=== PATIENT | female | born 1985 | race Caucasian/White ===

== ENCOUNTER 2023-10-09 19:20 | Outpatient (CLI) | payer OTHER, SELFPAY ==
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
--- OUTSIDE RECORDS SUMMARY | 2023-10-20 04:24 | XMS_ITS | Referral Summary ---
Author Name Unknown Organization [facility] Address [facility] [place] [address] Care Team Providers Care Ground Crewman Name Role Phone No Ref-Primary, Physician Primary Care Provider Allergies No known active allergies Medications Medication [...] 09/05/2011 Overview: Patient is followed by YULIA ANDERSON for ongoing prescription of stimulants. Due to illegal substance in urine on 11/02/2015 will not receive further stimulants from [facility]. Tobacco use disorder 09/05/2011 CARDIOVASCULAR SCREENING; LDL [...] Answer Date Recorded PHQ-2 Score 0 06/28/2018 [place] Depression Scale Answer Date Recorded Last EPDS [...] THIN LAYER SCREEN Routine 07/09/2015 12:00 AM ORNAMENTER HAND Routine general medical examination at a health care facility from Last 3 Months or Most Recently Relevant to Health Maintenance Results * (ABNORMAL) Comprehensive metabolic panel (03/24/2023 6:27 AM CDT) [facility] Sodium 137 135 - 145 mmol/L 03/24/2023 [...] Rai MD LAB - BLOOD ORDER CONSTANTINE [facility] [address] [facility] (1st floor, no room number) [place] [address], [facility] [phone] * PAP IMAGED THIN LAYER SCREEN (07/09/2015 12:00 AM ORNAMENTER HAND) PAP NIL COPATH Copath Report Patient Name: POWER PEREZ MR#: [id number] Specimen #: [id number] Collected: 07/09/2015 Received: 07/10/2015 Reported: 07/14/2015 14:32 Ordering Phy(s): YULIA ANDERSON SPECIMEN/STAIN PROCESS: Pap imaged thin layer prep screening (Surepath, FocalPoint with guided screening) ? Pap-Cyto x 1 SOURCE: Cervical, endocervical Pap imaged thin layer prep screening (Surepath, FocalPoint with guided screening) SPECIMEN ADEQUACY: Satisfactory for evaluation. -Transformation zone component present. CYTOLOGIC INTERPRETATION: Negative for Intraepithelial Lesion or Malignancy Electronically signed out by: Diane Giraldo Processed and screened at [facility] CLINICAL HISTORY: LMP: 07/02/15 Papanicolaou Test Limitations: ??Cervical cytology is a screening test with limited sensitivity; regular screening is critical for cancer prevention; Pap tests are primarily effective for the diagnosis/preventi on of squamous cell carcinoma, not adenocarcinomas or other cancers. TESTING LAB LOCATION: [facility] [address] [place], [place] ??[id number] COLLECTION SITE: Client: ??[facility] Location: [facility] (R) RADHA Cytologic material (specimen) 07/09/2015 07/10/2015 11:08 AM ORNAMENTER HAND Yulia [place] [facility] [employer]YMER ENGINE[employer] LAB - OPTIM E CLINICAL SPECIMEN COPATH from Last 3 Months or Most Recently Relevant to Health Maintenance Advance Directives For more information, please contact: [phone] * Full Code (Latest Code Status on [...] eder cabrera/ legal decision maker Care Teams Ground Crewman Relationship Specialty Start Date End Date No Ref-Primary, Physician PCP - General 11/16/21
--- OUTSIDE RECORDS SUMMARY | 2023-10-20 04:24 | XMS_ITS | Clinical Summary ---
Author Name Unknown Organization [facility] Address [address] [place] [address] Care Team Providers Care Report Programmer Name Role Phone Unavailable Primary Care Provider Unavailabl e Source Comments You are receiving this document as you are listed as the primary care provider,follow-up provider, or the patient has been referred to you for consultation.This is in compliance with the Medicare and[facility] EHR Incentive Program,which states Providers who transition their patient to another setting of careor provider of care or refers their patient to another provider of care shouldprovide summary care record for each transition of care or referral. [facility] Allergies No known active allergies Medications Medication [...] contact Roopa Lucero, Healthy Beginnings Specialist, at [phone]. High risk , antepartum 08/30/2022 Antepartum multigravida of advanced maternal age 0308/30/2022 ADHD (attention deficit hyperactivity disorder) 09/05/2011 Overview: Patient is followed by PAMELA ANDERSON for ongoing prescription of stimulants. Due to illegal substance in urine on 11/02/2015 will not receive further stimulants from [place]. Tobacco use disorder 09/05/2011 Resolved Problems Problem Noted Date Diagnosed Date Resolved Date Finger amputation, no complication, traumatic 08/31/19 23 08/30/2022 Polysubstance dependence 09/22/2015 Schizoaffective disorder, bipolar type 09/22/2015 08/30/2022 Suicidal ideation 09/22/2015 08/30/2022 Encounters Date Type Department Care Team Description 10/05/2023 Notes/Orders [facility] [facility] [address] [place] [address] Joyce Hampton, SENIOR PATROL AGENT, REFUSE COLLECTOR SUPERVISOR Encounter for screening examination for mental health [...] Date Smoking Tobacco: Every Day Cigarettes 1 25.3 Started: 07/20/1998 Tobacco Cessation:Ready to Q uit: [...] (Late st Contact Info) Description 06/02/2024 Notes/Orders [facility] [address] [place] [address], [address] [address] Britany Serrato, RN Health Maintenance [...] PM CDT) Case Report Pap ? Case: [id number] ? Authorizing Provider: ??Brianna Ma, RYAN, ?Collected: ? 08/30/2022 1310 ? CNM ? Ordering Location: ? [facility] ? Received: ?08/30/2022 1325 ? Services-[facility] ? First Screen: ?Anay Khalil ? Specimen: ?Pap Test, Routine, Cervix/Endocervix ? 09/20/2022 2:02 PM CDT [facility] Pap Specimen Adequacy Satisfactory for evaluation, endocervical/reeder sformation zone component present. 09/20/2022 2:02 PM CDT [facility] Pap Interpretation (NILM) Negative for intraepithelial lesion or malignancy. 09/20/2022 2:02 PM CDT [facility] Pap Disclaimer The Pap test is a screening test designed to aid in the detection of cervical cancer and its precursor lesions. It is not a diagnostic procedure and should not be used as the sole means of detecting cervical cancer. Both false-positive and false-negative results may occur. 09/20/2022 2:02 PM CDT [facility] Gross Description The specimen is received in SurePath fixative and properly labeled. 1 Pap-stained SurePath slide is prepared. 09/20/2022 2:02 PM CDT [facility] Embedded Images 2:02 PM CDT [facility] Other Specimen Type ENTIRE ENDOCERVIX / Unknown 08/30/2022 1:10 PM CDT 08/30/2022 1:25 PM CDT Comment:LMP: No LMP recorded (lmp unknown). Patient is . Brianna Ma APRN, CNM LAB PATHOLOGY Performing Organization Address [facility] de Phone Number [facility] [address] * HIV 1/2 Ag/Ab 4th Generation (08/30/2022 12:17 PM CDT) Pathologist [facility] HIV 1/2 Antigen/Antib jc (4th generation) Negative (Non Reactive) Negative (Non Reactive) 08/30/2022 8:51 PM CDT [facility] Comment:HIV-1 p24 Antigen an d HIV-1/HIV-2 Antibody not detected Blood Venipuncture / Unknown 08/30/2022 12:17 PM CDT 08/30/2022 12:17 PM CDT Brianna Ma APRN, CNM LAB_1 Performing Organization Address [facility] de Phone Number [facility] [address] * Hepatitis C Antibody, with Reflex (08/30/2022 12:17 PM CDT) Pathologist [facility] Hepatitis C Antibody Negative (Non Reactive) Negative (Non Reactive) 08/30/2022 8:51 PM CDT [facility] Comment:Antibodies to HCV no t detected. Does not exclude the possiblity of exposure to HCV. Blood Venipuncture / Unknown 08/30/2022 12:17 PM CDT 08/30/2022 12:17 PM CDT Brianna Ma APRN, CNM LAB_1 Performing Organization Address [facility] de Phone Number [facility] [address] from Last 3 Months or Most Recently Relevant to Health Maintenance [address] [place] [address]
--- OUTSIDE RECORDS SUMMARY | 2023-10-20 04:24 | XMS_ITS ---
Author Name Unknown Organization [facility] Address [address] [place] [address] Care Team Providers Care Crystalizer Tender Name Role Phone Unavailable Unavailable Unavailable Surgery Details Not on file Complications Check Surgery Details section. Procedure Estimated Blood Loss Check Surgery Details section. Procedure Findings Check Surgery Details section. Procedure Specimens Taken Check Surgery Details section.
--- OUTSIDE RECORDS SUMMARY | 2023-10-20 04:24 | XMS_ITS | Continuity of Care Document ---
Author Name [facility] Organization [facility] Care Team Providers Care After School Program Assistant Name Role Phone [facility] Unavailable Unavailable Problems Combined list of problems from Department of Defense and Veterans Affairs facilities. It does not include entries that were removed or entered in error. Problem Status Onset Date Problem Type Date of Resolution Comments Source Gynecologic Services Intrauterine Device (IUD) Insertion Active Condition [facility] Implantable Contraceptive Capsules Insertion Inactive Condition [facility] routine history and physical Active Condition [facility] visit for: screening exam depression Inactive Condition [facility] Inquiry And Counseling: Family Planning Active Condition [facility] premature rupture of membranes - antepartum condition or com Inactive Condition [facility] Need For Vaccination Against Influenza Inactive Condition [facility] Need For Vaccination Against Combinations Of Diseases Inactive Condition [facility] Blood Pressure Isolated Elevated Active Condition [facility] Patient Counseling: Inquiry & Counseling Active Condition [facility] Supervision Of Normal Inactive Condition [facility] depression Active Condition [facility] nicotine dependence continuous Active Condition [facility] matern tobacco use complic preg//puerper antepart cond Active Condition [facility] Education Active Condition [facility] Ed Initial Visit What To Expect In Normal Active Condition [facility] Ed Initial Visit Development In 1st Trimester Active Condition [facility] Medications Combined list of outpatient medications from Department of Defense and Veterans Affairs facilities.Medications provided include 1) outpatient medications from the last 15 months, and 2) patient-reported medications. Medication Details Route Status Patient Instructions Prescription Expires Prescription Number Last Dispense Date Ordering Provider Order Date Order Qty Source LITHIUM CARBONATE (LITHIUM CARBONATE), 300 MG, TABLET ER, ORAL, [employer] PHARMA, 100 ea. BOTTLE Active [id number] 2023 60 Pharmac y Data Transac tion Service Facilit y OLANZAPINE (OLANZAPINE ), 10 MG, TABLET, ORAL, [employer] PHARMA, 30 ea. BOTTLE Cancele d [id number] : 2023 0 Pharmac y Data Transac tion Service Facilit y Immunizations Combined list of available immunizations from the Department of Defense and Veterans Affairs facilities. Immunization Series Date Given Administered By Site Reaction Lot Number CVX Code Drug Docket Specialist Status Comments Source influenza virus vaccine, split virus (incl. purified surface antigen)-reti red CODE 1 2012 FERNANDO LANTIGUA [id number] Sanofi Pasteur ([facility]) complet ed influenza virus vaccine, split virus (incl. purified surface antigen)- retired CODE DoD tetanus toxoid, reduced diphtheria toxoid, and acellular pertu is vaccine, adsorbed 1 2012 FERNANDO LANTIGUA [id number] [address] [place], [place] [address] ([facility]) complet ed tetanus toxoid, reduced diphtheri [...] Date Status Disposition Source [facility] [place] OUTPATIENT [id number] tob SATYA AGUIRRE 04/03 Released w/o Limitations [facility] [place] [facility] [place] OUTPATIENT [id number] tob rosita HARPER MACDONALD 04/11 Released w/o Limitations [facility] [place] [facility] [place] OUTPATIENT [id number] ISABEL ROSITA [id number] CROW ANTONIO 05/22 Released w/o Limitations [facility] [place] [facility] TELE CONSULT [id number] Notes Entered by: KARLEE YUEN 01 Jun 2012 0926 ------- ------- ------- ------- -- Outpt consult BEATA ABDULLAHI 06/01 Referred for Appointment [facility]( [facility]) [facility] TELE CONSULT [id number] Notes Entered by: KARLEE YUEN 27 Jun 2012 1046 ------- ------- ------- ------- -- Outpt consult BEATA ABDULLAHI 06/27 Referred for Appointment [facility]( [facility]) [facility] [place] OUTPATIENT [id number] Notes Entered by: DARREL WALTON 29 Jun 2012 0157 ------- ------- ------- ------- -- cold/fl u symptom s CARLA VAZQUEZ W 06/29 Released w/o Limitations [facility]( [facility] [place] [place] OUTPATIENT [id number] isabel rosita [id number] CROW ANTONIO 07/18 Released w/o Limitations [facility] [place] [facility] [place] OUTPATIENT [id number] ISABEL ROSITA [id number] CROW ANTONIO 08/14 Released w/o Limitations [facility] [place] [facility] [place] OUTPATIENT [id number] ISABEL rosita:09/17 CROW ANTONIO 09/04 Released w/o Limitations [facility] [place] [facility] [place] OUTPATIENT [id number] ISABEL rosita:09/17 YOLANDA AZUL 09/12 Released w/o Limitations [facility] [place] [facility] [place] OUTPATIENT [id number] Notes Entered by: Jeannie SPICER 12 Sep 2012 1217 ------- ------- ------- ------- -- REFERRE D FROM CLINIC FOR HIGH BLOOD PRESSUR E OMAR ARAIZA 09/12 Released w/o Limitations [facility]( [facility] [place] DIRECT TO [facility] FROM OTHER THAN ER OR [facility] [id number] MAGALI QUILES 09/18 DISCHARGED HOME [facility] [place] OUTPATIENT [id number] Notes Entered by: KEVYN ODOM 19 Sep 2012 0049 ------- ------- ------- ------- -- SROM check MAGALI QUILES 09/19 Admitted [facility]( [facility] [place] [facility] ) INPATIENT [id number] FERNANDO LANTIGUA 09/20 Inpatient- Still a Patient [facility]( Immuniz ation Clinic ) [facility] [place] OUTPATIENT [id number] 11 weeks post OMAR HANSEN 12/06 Released w/o Limitations [facility] [place] [facility] Procedures Combined list of: 1) Procedures from Department of Veterans Affairs facilities going back up to thelast 18 months, not all VA non-surgical procedures are included; 2) All procedures from the Department of Defense facilities. Procedure Procedure Type Code Date Perfomer Comments [facility] e CARE VISIT () 3 [facility] REPAIR OF OTHER CURRENT OBSTETRIC LACERATION 3 [facility] REPAIR OF CURRENT OBSTETRIC LACERATION OF CERVIX 3 [facility] MEDICAL INDUCTION OF LABOR 3 [facility] OTHER MONITORING 3 [facility] INFLUENZA VIRUS VACCINE, TRIVALENT (IIV3), SPLIT VIRUS, 0.5 ML DOSAGE, FOR INTRAMUSCULAR USE 3 [facility] NON-STRESS TEST 3 [facility] SUBSEQ CARE VISIT () [EXCLS:PATIENTS WHO ARE SEEN FOR A CONDITION UNREL TO / CARE (EG,AN UP RESPIR INFECT;PATIENTS SEEN FOR CONSULTATION ONLY,NOT FOR CONT CARE)] 3 [facility] SUBSEQ CARE VISIT () [EXCLS:PATIENTS WHO ARE SEEN FOR A CONDITION UNREL TO / CARE (EG,AN UP RESPIR INFECT;PATIENTS SEEN FOR CONSULTATION ONLY,NOT FOR CONT CARE)] 3 [facility] SUBSEQ CARE VISIT () [EXCLS:PATIENTS WHO ARE SEEN FOR A CONDITION UNREL TO / CARE (EG,AN UP RESPIR INFECT;PATIENTS SEEN FOR CONSULTATION ONLY,NOT FOR CONT CARE)] 3 [facility] SUBSEQ CARE VISIT () [EXCLS:PATIENTS WHO ARE SEEN FOR A CONDITION UNREL TO / CARE (EG,AN UP RESPIR INFECT;PATIENTS SEEN FOR CONSULTATION ONLY,NOT FOR CONT CARE)] 3 [facility] NON-STRESS TEST 3 [facility] SUBSEQ CARE VISIT () [EXCLS:PATIENTS WHO ARE SEEN FOR A CONDITION UNREL TO / CARE (EG,AN UP RESPIR INFECT;PATIENTS SEEN FOR CONSULTATION ONLY,NOT FOR CONT CARE)] 2 [facility] INITIAL CARE VISIT (REPORT AT 1ST ENCOUN W HEALTH CAMP ASSISTANT PROVIDING OBSTETRIC CARE. REPORT ALSO DATE OF VISIT &,IN A SEPARATE FIELD,THE DATE OF THE LAST MENSTRUAL PERIOD) 2 [facility] EDUCATION &TRAINING, PATIENT SELF-MGT QUALIFIED, NONPHYSICIAN HEALTH CAMP ASSISTANT USING STANDARDIZED CURRICULUM, [id number] W THE PATIENT (COULD INCL CAREGIVER/FAMILY) EA 30 MIN; 5-8 PATIENTS 2 [facility] Levonorgestrel-rele asing intrauterine contraceptive system, 52 mg 3 OMAR HANSEN [facility] Intrauterine Device (IUD) Insertion [facility] Intrauterine Device (IUD) Insertion 74545 3 OMAR HANSEN Etonogestrel (contraceptive) implant system, including implant and supplies 3 OMAR HANSEN Implantable Contraceptive Capsules Insertion 3 OMAR HANSEN Obstetrical Services Care Visit Obstetrical Services Care Visit 0503F 3 OMAR HANSEN [facility] Influenza Split Virus Vaccine 0.5mL Dosage Intramuscular 3 FERNANDO LANTIGUA Influenza Split Virus; Series #: 1; .5 mL; IM; Left Arm; [facility]: Sanofi Pasteur; Lot: [id number]; VIS given (Dali: 01/26/10). [facility] Tdap Vaccine Tdap Vaccine 05543 3 FERNANDO LANTIGUA Tdap; Series #: 1; .5 mL; IM; Left Arm; [facility]: [employer]; Lot: [id number]; VIS given (Dali: 07/12/11). [facility] Immunization Administration By Injection, One Vaccine Immunization Administration By Injection, One Vaccine 51005 3 FERNANDO LANTIGUA [facility] Immunization Administration By Injection, Each Additional Vaccine Immunization Administration By Injection, Each Additional Vaccine 19316 3 FERNANDO LANTIGUA [facility] Non-Stre Test (___ 0,2) Non-Stress Test (___ 0,2) 92914 3 OMAR HANSEN [facility] OB Services Antepartum Care Only Subsequent Single Visit OB Services Antepartum Care Only Subsequent Single Visit 0502F 3 YOLANDA AZUL [facility] OB Services Antepartum Care Only Subsequent Single Visit OB Services Antepartum Care Only Subsequent Single Visit 0502F 3 CROW ANTONIO [facility] OB Services Antepartum Care Only Subsequent Single Visit OB Services Antepartum Care Only Subsequent Single Visit 0502F 3 CROW ANTONIO [facility] OB Services Antepartum Care Only Subsequent Single Visit OB Services Antepartum Care Only Subsequent Single Visit 0502F 3 CROW ANTONIO Non-Stre Test (___ 0,2) Non-Stress Test (___ 0,2) 03537 3 YE FRIAS [facility] OB Services Antepartum Care Only Subsequent Single Visit OB Services Antepartum Care Only Subsequent Single Visit 0502F 2 CROW ANTONIO [facility] OB Services Antepartum Care Only First Visit, With Report OB Services Antepartum Care Only First Visit, With Report 0500F 2 HARPER FREEMAN DoD Patient Counseling Medical Management [facility] Patients Patient Counseling Medical Management [facility] Patients [address] 2 SATYA AGUIRRE DoD Social History Combined list of available smoking, tobacco, and other social history from Department of Defense and Veterans Affairs facilities. Social History Type Response Date Comment Sourc e This section is an empty social history section. DoD
--- OUTSIDE RECORDS SUMMARY | 2023-10-20 04:24 | XMS_ITS | Encounter Summary ---
Author Name Unknown Organization [facility] Address [address] [place] [address] Care Team Providers Care Vending Attendant Name Role Phone None Reported, Pcp Primary Care Provider Unavail able Encounter Details Date Type Department Care Team (Latest Contact Info) Description 10/14/2023 Intake [facility] Social History Tobacco Use Types Packs/Day Years Used Date Smoking Tobacco: Every Day Cigarettes 07 13 Started: 1998 Smokeless Tobacco: Current Comments:Pt reports using ni cotine in several forms. Is surrently using nicotine and is not interested in quitting. Began nicotine use at age 13 Alcohol Use Standard Drinks/Week Comments Yes 12 (1 standard drink = 0.6 oz pure alcohol) occasionally drinks tequilla, 4 beers per day [employer] Answer Date Recorded In the past 12 months has e [employer], gas, oil, or water [employer] threatened to shut off services in your [...] your living situation today? I have a [facility] place to live 10/15/2023 Sex and Gender Information Value Date Recorded Sex Assigned at Not on file Gender Identity Not on file Sexual Orientation Not on file documented as of this encounter Plan of Treatment Upcoming Encounters Date Type Department Care Team (Late st Contact Info) Description 10/23/2023 11:30 AM CDT Office Visit Department of Family Medicine in [place], [place] [address] [place] [address] Lex Olmos M.D. [address] [place] [address] documented as of this encounter Visit Diagnoses Not on filedocumented in this encounter Additional Health Concerns Infection Onset Date Last Indicated Resolved Time COVID19 Pending 10/14/2023 10/14/2023 10/14/2023 6 :52 PM CDT Assessment Noted Time PHQ-9 Depression Total Score: 10 024 10:00 PM CDT documented as of this encounter Care Teams Vending Attendant Relationship Specialty Start Date End Date None Reported, Pcp PCP - General Family Medicine 10/14/23 documented as of this encounter
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
--- OUTSIDE RECORDS SUMMARY | 2023-10-20 04:24 | XMS_ITS | Clinical Summary ---
Author Name Unknown Organization [facility] Address [facility] [place] [address] Care Team Providers Care Histological Illustrator Name Role Phone No Ref-Primary, Physician Primary [...] 11/02/2015 will not receive further stimulants from [facility]. Tobacco use disorder 09/05/2011 CARDIOVASCULAR SCREENING; LDL [...] Answer Date Recorded PHQ-2 Score 0 06/28/2018 [place] Depression Scale Answer Date Recorded Last EPDS [...] 08/30/2025 08/30/2022, 08/17, 07/09/2015 GLUCOSE 03/24/2026 03/24/2023, 10/0 10/2022, 03/22/2023, Additional history exists DTAP/TDAP/TD IMMUNIZATION (8 - Td or Tdap) 01/02/2033 01/02/2023, 09/20/2012, 06/19/2012, Additional history exists HEPATITIS B IMMUNIZATION Completed 000, 02/26/1999, 01/19/1999 HPV IMMUNIZATION Completed 12/11/2008, , [...] THIN LAYER SCREEN Routine 07/09/2015 12:00 AM MICRO PALEONTOLOGIST Routine general medical examination at a [facility] care facility from Last 3 Months or Most Recently Relevant to Health Maintenance Results * (ABNORMAL) Comprehensive metabolic panel (03/24/2023 6:27 AM CDT) Pathologist [facility] Sodium 137 135 - 145 mmol/L 03/24/2023 [...] Rai MD LAB - BLOOD ORDER CONSTANTINE RH LABORATORY [facility] [address] [facility] Lab (1st floor, no room number) [place] [address] [phone] * PAP IMAGED THIN LAYER SCREEN (07/09/2015 12:00 AM MICRO PALEONTOLOGIST) PAP ALICIA COPATH Copath Report Patient Name: POWER PEREZ MR#: [id number] Specimen #: [id number] Collected: 07/09/2015 Received: 07/10/2015 Reported: 07/14/2015 14:32 [...] by: Diane Giraldo Processed and screened at [facility], [facility] CLINICAL HISTORY: LMP: 07/02/15 Papanicolaou Test Limitations: ??Cervical cytology is a screening test with limited sensitivity; regular screening is critical for cancer prevention; Pap tests are primarily effective for the diagnosis/preventi on of squamous cell carcinoma, not adenocarcinomas or other cancers. TESTING LAB LOCATION: [address] ??[address] COLLECTION SITE: Client: ??[facility] Location: [facility] (R) COPATH Cytologic material (specimen) 07/09/2015 07/10/2015 11:08 AM MICRO PALEONTOLOGIST Yulia Bernabe PROVIDER SERVICE REPRESENTATIVE POL[employer] [facility] - OPTIM E CLINICAL SPECIMEN COPATH from Last 3 Months or Most Recently Relevant to Health Maintenance Advance Directives For more information, please contact: [phone] * Full Code (Latest Code Status on [...] eder cabrera/ legal decision maker Care Teams Histological Illustrator Relationship Specialty Start Date End Date No Ref-Primary, Physician PCP - General 11/16/21
--- OUTSIDE RECORDS SUMMARY | 2023-10-20 04:24 | XMS_ITS | Encounter Summary ---
Author Name Unknown Organization [facility] Address [address] [place] [address] Care Team Providers Care Cell Room Operator Name Role Phone None Reported, Pcp Primary Care Provider Unavail able Reason for Visit * Reason Comments Mental Health Problem Patient presents w [facility] for evaluation of mental crisis. Patient called EMS after argument with her mother over her vehicle to leave her home and get beer. Encounter Details Date Type Department Care Team (Late st Contact Info) Description 10/14/2023 4:40 PM CDT - 10/14/2023 9:11 PM CDT Emergency [facility] [address] [place] [phone] Skye Pearce D.O. [address] [place] [address] [phone] Hernan Piper M.D. 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 I have a [facility] place to live 10/15/2023 Sex and Gender Information Value Date Recorded Sex Assigned at Not on file Gender Identity Not on file Sexual Orientation Not on file documented as of this encounter Last Filed Vital Signs Vital Sign Reading Time Taken Comments Blood Pressure 133/94 10/14/2023 7:18 PM CDT Pulse 89 10/14/2023 7:18 PM CDT Temperature 36.8 ??C (98.2 ??F) 10/14/2023 7:18 PM CD T Respiratory Rate 18 10/14/2023 7:18 PM CDT Oxygen Saturation 99% 10/14/2023 7:18 PM CDT Inhaled Oxygen Concentration - - Weight 56.7 kg (125 lb) 10/14/2023 4:46 PM CDT Height - - Body Mass Index 19.39 10/10/2023 7:01 PM CDT documented in this encounter Medications at Time of Discharge Medication Sig Dispensed Refills Start Date End Date lithium carbonate (LITHOBID) 300 mg ER tablet Take 2 tablets (600 mg total) by mouth at bedtime. 60 tablet 10/13/2023 11/12/2023 OLANZapine (ZyPREXA) 10 mg tablet Take 1 tablet (10 mg total) by mouth at bedtime. 30 tablet 10/13/2023 11/12/2023 docusate sodium (COLACE) 100 mg capsule Take 1 capsule by mouth daily. 03/23/2023 labetaloL (NORMODYNE) 200 mg tablet Take 200 mg by mouth every 8 (eight) hours. 03/23/2023 documented as of this encounter Consult Notes * Reena Mendiola L.G.S.W. - 10/14/2023 7:07 PM CDT TELECONSULT SUBSEQUENT VISIT Disclaimer: The patient was advised regarding the various topics to be interviewed. Patient consented to proceed. The information provided is based on review of the medical record as well as the faceto face interview with the patient. The patient was advised that the content of this interview willbe shared with the health care team. It was discussed with the patient that staff are mandated reporters including responsibilities related to mental health professionals' duty related to the [place] Red Flag law and they reported understanding. Consult conducted via real-time audio/video technology by Michelle Orellana in [facility] to the patient in [facility], at the request of Skye Pearce DO. A diagnostic assessment was completed on 10/12/2023 by JESSICA Boles. Information from this assessment was reviewed with the patient and there are no significant changes to the patient's living situation or psychosocial factors since that assessment. SUBJECTIVE CHIEF COMPLAINT / REASON FOR VISIT Patient is a 38 y.o. female who presented to the [facility] Emergency Department (ED) via ambulance due to mental health problem. Patient was accompanied by ambulance staff. HISTORY OF PRESENT ILLNESS The patient reported I was feeling overtired. I said it was because I was covered in spiders but that wasn't true when asked what brought her to the emergency department. Patient reported that she was feeling overwhelmed by her family and tried to leave, but her mother wouldn't let her take her car. She reported I think I have attention deficit and hyperactivity disorder bad, and a little autism. [employer] asked patient what her intention was with calling the ambulance. She reported I don't like telling people that I have it (attention deficit and hyperactivity disorder) and it causes me toact erratically compared to others. Patient stated I don't like being made a fool of. It is hard to describe how my family and supposed support make me feel. I hate being forced to do things, like see a doctor. I may cry a lot but I am physically healthy and no different than anyone else. Throughout the interview, patient would look around the room and make comments such as No I am not talking about you, I am talking about me then return to the assessment conversation. Patient reported that this is part of how I work through my problems. I talk to myself in the third person. It appeared as though the patient was responding to internal stimuli. The patient???s mother, Carrie, provided collateral information and reported concerns of the patient's mental health. Mother reported that after the patient was discharged, she began acting up and not using good decision making after her return home. She reported that the patient was dancing naked in the shower with no water running and singing. The patient also broke open a dish-washer pod andsmeared the detergent on all of the bottles under the sink, then began wiping the soap all over herface. She indicated that the patient asked her to come over today to be a support. Mother reported that when she arrived at the patient's home, the patient appeared to be doing well. The house was calm and quiet, and the patient and her six month old were sitting on the couch watching a movie. Mother reported that as the day went on the patient became more agitated. Carrie stated that she was asking mom why she was there, that she hated her and wanted her to leave. She reported that patient then got dressed up and stated she was going to leave, and when mom wouldn't let her borrow her car, patient responded it's ok, I don't have money anyway. Patient asked several more times to borrow Carrie's car, which she would not let her take. Carrie reported that she called her own to come, and after he arrived, the patient told him he needed to call 911. Patient also told Carrie to call 911 because there were spiders crawling all over her. Carrie stated she was trying to wipe the spiders off. Carrie reported that the patient then squatted on the floor, with her eyes closed and her sunglasses on and started repeating the Lords Prayer. Carrie reported that the family was surprised that the patient was discharged so quickly, as the last time she was hospitalized, about eight years ago, she was in the hospital for a few weeks. 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 (Unknown author/date of entry) Patient was hospitalized at [facility] from 10/10/2023 to 10/13/2023. [facility] 10/14/2023 Pharmacotherapies details: Patient and patient collateral report patient does not take any medications at her baseline. (Michelle Boles, 10/12/23). Patient was started on medications during the September [address] [facility] 10/14/2023. Other details: Patient was under MICD commitment 09/2015-03/2016 with [facility]. (Michelle Boles, 10/12/23). Suicide Risk Assessment Summary Michelle Orellana met with the patient in response to mental health problem. Patient was referred by Skye Pearce DO. Clinical Observation Patient is a 38 y.o. female. Patient is being seen by Michelle Orellana Collateral Sources Used and Relevant Information Obtained Michelle Orellana spoke with patient and her mother. Mental Status Information Orientation: Oriented to person, place and time Level of consciousness: Awake and alert Appearance: Age appearing Behavior observed: Calm Cooperation: Cooperative Mood: Anxious Affect: Within a normal range Speech: Pressured. Thought process: Brief and easily derailed Thought content, auditory/visual hallucinations and/or delusions: Appears to be reacting to internal stimuli Brief Evaluation Summary Warning Signs Activating Events: Activating Events: Interpersonal conflict Risk Indicators Risk Factors: Paranoid delusions, Hallucinations, Substance abuse Protective Factors Internal protective factors: Internal Protective Factors: Resilient External protective factors: External Protective Factors: Responsibility to family, children, or others, No access to firearms, Living with family, Supportive social network of family, Supportive social network of family friends Specific Assessment Data to Support Risk Determination CSSRS-Past Month and Lifetime: Step 1: C-SSRS Past Month and Lifetime 1. Within the past month, have you wished you were or wished you could go to sleep and not wake up?: No 2. Within the past month, have you actually had any thoughts of killing yourself?: No 3. Within the past month, have you been thinking about how you might do this?: No 4. Within the past month, have you had these thoughts and had some intention of acting on them?: No 5. Within the past month, have you started to work out or worked out the details of how to kill yourself? Did you intend to carry out this plan?: No 6. In your whole life have you ever done anything, started to do anything, or prepared to do anything to end your life?: No Assessment Risk Level Summary Assessment Risk Level Summary Based on the Risk and Protective factors described above and interpretation of the [place] SuicideSeverity Rating Scale (C-SSRS) and SAFE-T protocol, the patient's suicidal risk is assessed as acutely Low Recommendations for follow-up Discussed recommendations for follow-up including inpatient psychiatric admission with patient and care team. Patient is agreeable with follow-up recommendations including inpatient psychiatric admission. Jefe Welch Completion: No - Patient was assessed as Low in suicide risk and a Jefe Welch Safety Plan/Crisis Action Planwas not developed because she will be hospitalized. Next steps in care planning: seek inpatient hospitalization ASSESSMENT / PLAN IMPRESSIONS: Diagnostic impressions have not changed as documented in the patient's hospital visit on 10/12/2023 with JESSICA Boles. Patient is meeting diagnostic criteria for cannabis use disorder (unspecified at this time). Patient endorsed symptoms of use of cannabis daily throughout the day as per patient and collateral. Patient is reportedly use cannabis throughout and around her baby which is against recommendation of medical and family, despite these recommendations should continue to use. Patient was guarded and became agitated when asked to discuss cannabis use symptoms in further detail. It islikely that patient has a severe cannabis use disorder but will need to continue to be assessed during this hospitalization. Patient reported duration of symptoms as daily, more than 1 year. Patient r eported experiencing significant distress or impairment in the following areas: relationships, mental health. Patient is meeting diagnostic criteria for bipolar disorder, current episode manic. Patient and patient collateral described a major mood episode with manic elements over the past several months witha worsening in the past few weeks. Collateral information describes several depressive episodes throughout patient's life. Patient has history of recurrent manic episodes that required hospitalization and commitment in the past. Patient currently displaying symptoms of pressured speech, flight of ideas, labile mood, extreme irritability and agitation. Patient had inflated sense of self-worth and said things such as I am extremely smart. Patient reported duration of symptoms as difficult to determine, patient has experienced depressive episodes since she was a teenager and there is report ofseveral manic episodes in the past. Patient is experiencing significant distress or impairment in the following areas: mental health, relationships, ability to work, ability to care for self. Additional diagnoses/diagnosis for consideration include: Stimulant use disorder, alcohol use disorder, borderline personality disorder, schizoaffective disorder. DIAGNOSIS (DSM-5 TR): Bipolar 1 disorder, current episode manic Cannabis use disorder INTERVENTIONS Subsequent visit completed. [employer] engaged the patient and family in Motivational Interviewing utilizing rapport building, empathetic communication, open ended questioning, affirmations, and summarizing to complete the assessment process. The patient and family was engaged as evidenced by their willingness to answer questions. [employer] refer patient for voluntary inpatient psychiatric treatment. Discussed Plan of Care with Emergency Department care team and the patient. The patient is in agreement with inpatient psychiatric care. Anticipated barriers for patient to achieve treatment goals: Mental Health and Chemical dependency . Patient is voluntary for psychiatric admission. Social Work attempted to seek psychiatric placement at facilities closest to their current physicallocation and residence. Patient was reviewed at [facility] and accepted by Dr. Springer. Treatment team at [facility] notified. PLAN Patient will increase stabilization of mental health symptoms. Patient will: Discharge voluntary to an inpatient psychiatric treatment. Review the psychiatry and psychotherapy list and schedule an outpatient appointment by discharge. Social work will: Attempt to secure voluntary inpatient psychiatric hospitalization. Hand off to incoming social service worker for continued coordination of care. Assist as needed and requested. Consult start time: 1656 [id number]-[id number] Start Time: 1755, [id number]-Gjxr Stop Time: 1831 [id number]-[id number] Total Time: 36 Michelle Orellana 10/14/2023 documented in this encounter ED Notes * Hernan Piper M.D. - 10/14/2023 8:28 PM CDT [facility] Transfer of Care Note I assumed care of Ute Green from Dr. Pina Pearce at 19:00. Brief Hx: 38-year-old woman recently discharged from inpatient psychiatric care yesterday presenting with continued/recurrent psychosis, unable to care for herself. Vitals: Vitals: 10/14/23 1650 10/14/23 1748 10/14/23 1856 10/14/23 1918 BP: (!) 132/92 (!) 141/106 136/90 (!) 133/94 BP Location: Upper;Left arm Upper;Left arm Right arm;Upper Patient Position: Semi-recumbent Sitting Pulse: 84 80 101 89 Resp: 18 18 18 Temp: 36.8 ??C 36.8 ??C TempSrc: Temporal SpO2: 98% 99% 99% 99% Weight: Pending Tests: None Follow-up ED Course: Patient was stable in the emergency department but did escalate verbally somewhat. She never got off the better was at all physically threatening, but quite scathing verbally. Reportedly she had internal stimuli as well. She is repeatedly demanding to be sedated which has several times been declined. She did get her home Zyprexa 10 mg and extended release lithium 300 mg before transferring out [facility] where she was just discharged yesterday. Clinical Impression: Final diagnoses: [F29] Unspecified Psychosis Not Due To A Substance Or Known Physiological Condition (HCC) Disposition: Transfer [place] ED Prescriptions None Labs Reviewed DRUG SCREEN URINE - Abnormal Result Value Amphetamines, U Negative Barbiturates, U Negative Benzodiazepines, U Negative Buprenorphine, U Negative Cocaine, U Negative Methadone, U Negative Methamphetamines, U Negative Opiates, U Negative Oxycodone, U Negative Phencyclidine, U Negative Tetrahydrocannabinol, U Unconfirmed Positive (*) Tricyclic Antidepressants, U Negative COMPREHENSIVE METABOLIC PANEL, S/P - Abnormal Potassium, P 3.8 Sodium, P 138 Chloride, P 103 Bicarbonate, P 24 Anion Gap, P 11 BUN (Blood Urea Nitrogen), P 9 Creatinine 0.53 (*) Estimated GFR (eGFR) >90 Calcium, Total, P 9.8 Glucose, P 114 Protein, Total, P 8.0 (*) Albumin, P 4.5 Aspartate Aminotransferase (AST), P 18 Alkaline Phosphatase, P 75 Alanine Aminotransferase (ALT), P 22 Bilirubin, Total, P <0.2 CBC WITH DIFFERENTIAL, B - Abnormal Hemoglobin 13.9 Hematocrit 40.4 Erythrocytes 4.46 MCV 90.6 RBC Distrib Width 11.2 (*) Platelet Count 394 (*) Leukocytes 10.3 (*) Neutrophils 7.76 (*) Lymphocytes 1.96 Monocytes 0.52 Eosinophils 0.07 Basophils <0.04 SARS CORONAVIRUS 2, PCR RAPID, V SARS CoV-2, PCR, Rapid, V Undetected SARS Coronavirus 2, Source, Rapid Swab, Nasopharynx URINALYSIS WITH MICROSCOPIC IF INDICATED, U Source Urine, Urine, Midstream Clarity Clear Color Yellow Blood Negative Nitrite Negative Leukocyte Esterase Negative Protein Negative Glucose Negative Ketones, QI(U) Negative Bilirubin Negative pH 5.5 Specific [place] 1.015 Urobilinogen 0.2 ETHANOL, S Ethanol, P <10 ACETAMINOPHEN LEVEL, S Acetaminophen, P <7 SALICYLATE LEVEL, S Salicylate, P <0.3 TEST, POCT, U (LAB) Test, POCT, U Negative THYROID-STIMULATING HORMONE-SENSITIVE (S-TSH) TSH, Sensitive 0.6 No orders to display Hernan Piper M.D. 10/14/23 2230 * Skye Pearce D.O. - 10/14/2023 6:23 PM CDT [facility] EMERGENCY DEPARTMENT ENCOUNTER Patient Name: Ute Green Birthdate 1985 Date of evaluation: 10/14/2023 Provider: Skye Pearce D.O. PCP: Pcp None Reported SUBJECTIVE CHIEF COMPLAINT/REASON FOR VISIT Mental Health Problem (Patient presents with EMS for evaluation of mental crisis. Patient called EMS after argument with her mother over her vehicle to leave her home and get beer. ) HISTORY OF PRESENT ILLNESS Ute Green is a 38 y.o. female presents to the emergency department by [facility] after calling emergency medical services due to feeling like spiders were crawling all of her body. Patient is quite disorganized upon arrival with tangential thoughts and rapid, pressured speech. She states that she was inpatient for mental health in [place], discharge yesterday. She wanted to take [employer] car to go purchase alcohol, but her mother would not let her so they got into an argument. Patient denies drugs. History provided by: Patient and EMS personnel MEDICAL HISTORY Past Medical History: Diagnosis Date Bipolar Disorder (HCC) Hallucination Schizoaffective Disorder (HCC) OBJECTIVE VITAL SIGNS BP (!) 133/94 (BP Location: Right arm;Upper, Patient Position: Sitting) Pulse 89 Temp 36.8 ??C Resp 18 Wt 56.7 kg LMP (LMP Unknown) SpO2 99% BMI 19.39 kg/m?? PHYSICAL EXAMINATION: Constitutional: Nursing note and vitals reviewed. She is cooperative. Calm and cooperative with rapid, pressured speech. Somewhat giddy. Responding to internal stimuli. HENT: Mouth/Throat: Oropharynx is clear and moist. Eyes: Conjunctivae are normal. Neck: Neck supple. Cardiovascular: Normal rate, regular rhythm and normal heart sounds. Pulmonary/Chest: Effort normal and breath sounds normal. There is normal air entry. Abdominal: Soft. There is no abdominal tenderness. Musculoskeletal: General: No edema. Cervical back: Neck supple. Neurological: Alert. GCS eye subscore is 4. GCS verbal subscore is 5. GCS motor subscore is 6. Gaitnormal. Skin: Skin is warm and dry. Psychiatric: Speech is rapid and/or pressured. Actively hallucinating. She expresses no homicidal and no suicidal ideation. DIAGNOSTICS LABS: Labs Reviewed DRUG SCREEN URINE - Abnormal Result Value Amphetamines, U Negative Barbiturates, U Negative Benzodiazepines, U Negative Buprenorphine, U Negative Cocaine, U Negative Methadone, U Negative Methamphetamines, U Negative Opiates, U Negative Oxycodone, U Negative Phencyclidine, U Negative Tetrahydrocannabinol, U Unconfirmed Positive (*) Tricyclic Antidepressants, U Negative COMPREHENSIVE METABOLIC PANEL, S/P - Abnormal Potassium, P 3.8 Sodium, P 138 Chloride, P 103 Bicarbonate, P 24 Anion Gap, P 11 BUN (Blood Urea Nitrogen), P 9 Creatinine 0.53 (*) Estimated GFR (eGFR) >90 Calcium, Total, P 9.8 Glucose, P 114 Protein, Total, P 8.0 (*) Albumin, P 4.5 Aspartate Aminotransferase (AST), P 18 Alkaline Phosphatase, P 75 Alanine Aminotransferase (ALT), P 22 Bilirubin, Total, P <0.2 CBC WITH DIFFERENTIAL, B - Abnormal Hemoglobin 13.9 Hematocrit 40.4 Erythrocytes 4.46 MCV 90.6 RBC Distrib Width 11.2 (*) Platelet Count 394 (*) Leukocytes 10.3 (*) Neutrophils 7.76 (*) Lymphocytes 1.96 Monocytes 0.52 Eosinophils 0.07 Basophils <0.04 SARS CORONAVIRUS 2, PCR RAPID, V SARS CoV-2, PCR, Rapid, V Undetected URINALYSIS WITH MICROSCOPIC IF INDICATED, U Source Urine, Urine, Midstream Clarity Clear Color Yellow Blood Negative Nitrite Negative Leukocyte Esterase Negative Protein Negative Glucose Negative Ketones, QI(U) Negative Bilirubin Negative pH 5.5 Specific [place] 1.015 Urobilinogen 0.2 ETHANOL, S Ethanol, P <10 ACETAMINOPHEN LEVEL, S Acetaminophen, P <7 SALICYLATE LEVEL, S Salicylate, P <0.3 TEST, POCT, U (LAB) Test, POCT, U Negative THYROID-STIMULATING HORMONE-SENSITIVE (S-TSH) TSH, Sensitive 0.6 EMERGENCY DEPARTMENT COURSE and DIFFERENTIAL DIAGNOSIS/MDM: Patient was given the following medications: Medications nicotine 21 mg/24 hr 1 patch (NICODERM CQ) (1 patch transdermal Medication Applied 10/14/23 1707) MDM: IMPRESSION AND PLAN Patient presents to the emergency department 1 day after discharge, by EMS after bizarre behavior at home, responding to internal stimuli, and having visual and tactile hallucinations of spiders crawling all over her body. Here she is calm and cooperative but does have rapid, pressured speech. Her mood is almost elated. Labs overall are unremarkable. Urine drug screen is positive for THC, but it was prior to her last admission. No medications were given other than the nicotine patch patient requested. COVID swab is negative. She did eat a full dinner tray. She was evaluated by telehealth social work who spoke withher mother and admission is recommended based on the history provided by her mom. Patient is signedout to Dr. Piper at change of shift pending placement. I reviewed previous medical records including documentation from previous visits and lab results. I personally reviewed the lab result(s) and my interpretation is normal and documented in ED Course. Case reviewed with other health resident care supervisor, including Behavioral Health. Ana Laura Tarango Sarah, D.O. 10/14/231945 documented in this encounter Plan of Treatment Upcoming Encounters Date Type Department Care Team (Late st Contact Info) Description 10/23/2023 11:30 AM CDT Office Visit Department of Family Medicine in [place], [place] [address] [place] [phone] Lex Olmos M.D. [address] [place] [phone] documented as of this encounter Procedures Procedure Name Priority Date/Time Associated Diagnosis Comments SARS CORONAVIRUS 2, PCR RAPID, V STAT 10/14/2023 6:26 PM CDT ETHANOL, S STAT 10/14/2023 4:58 PM CDT CBC WITH DIFFERENTIAL, B STAT 10/14/2023 4:58 PM CDT THYROID-STIMULATING HORMONE-SENSITIVE (S-TSH) STAT 10/14/2023 4:58 PM CDT ACETAMINOPHEN LEVEL, S STAT 4:58 PM CDT SALICYLATE LEVEL, S STAT 10/14/2023 4 :58 PM CDT COMPREHENSIVE METABOLIC PANEL, S/P STAT 10/14/2023 4:58 PM CDT URINALYSIS WITH MICROSCOPIC IF INDICATED, U Routine 10/14/2023 4:54 PM CDT TEST, POCT, U (LAB) Routine 10/14/2023 4:54 PM CDT DRUG SCREEN URINE Routine 10/14/2023 4:5 4 PM CDT documented in this encounter Results * SARS Coronavirus 2, PCR Rapid Symptomatic (10/14/2023 6:26 PM CDT) Pathologist [facility] SARS CoV-2, PCR, Rapid, V Undetected Undetected [...] at the following links: For Healthcare Providers: https://www.fda.gov/media/165086/download For Patients: https://www.fda.gov/media/753488/download SARS Coronavirus 2, Source, Rapid Swab, Nasopharynx 10/14/2023 6:31 PM CDT [facility] Swab (Nasopharynx) 10/14/2023 6:26 PM CDT 10/14/2023 6:31 PM CDT Skye Pearce D.O. LAB MICROBIOLOGY - G ENERAL ORDERABLES [facility] [address] [place] [address], [facility] NPRG [address] [address] * S-TSH (Thyroid-Stimulating Hormone - Sensitive) (10/14/2023 4:58 PM CDT) TSH, Sensitive 0.6 0.3 - 4.2 mIU/L 10/14/2023 5:27 PM CDT [facility] Blood (Blood, Venous) 10/14/2023 4:58 PM CDT 10/14/2023 5:00 PM CDT Skye Pearce D.O. LAB BLOOD ADD-ON Performing Organization Address [facility] Co de Phone Number [facility] [address] [place] [address], [facility] NPRG [address] [address] * Salicylate Level (10/14/2023 4:58 PM CDT) Salicylate, P <0.3 <30.0 mg/dL 10/14/2023 5:24 PM CDT NPR[facility] Blood (Blood, Venous) 10/14/2023 4:58 PM CDT 10/14/2023 5:00 PM CDT Skye Pearce D.O. LAB BLOOD ADD-ON Performing Organization Address City/[facility]/ZIP Co de Phone Number [facility] [address] [place] [address], [facility] NPRG [address] [address] * Acetaminophen Level (10/14/2023 4:58 PM CDT) Acetaminophen, P <7 Therapeutic Range: 10-30 mcg/mL 10/14/2023 5:24 PM CDT NPR[facility] Blood (Blood, Venous) 10/14/2023 4:58 PM CDT 10/14/2023 5:00 PM CDT Skye Pearce D.O. LAB BLOOD ADD-ON [facility] [address] [place] [address], [facility] NPRG [facility] [address] [place] [address] * (ABNORMAL) CBC with Differential, Blood (10/14/2023 4:58 PM CDT) [facility] Hemoglobin 13.9 11.6 - 15.0 g/dL 10/14/2023 5:04 PM CDT NPRG Hematocrit 40.4 35.5 - 44.9 % 10/14/2023 5:04 PM CDT NPR[facility] Erythrocytes 4.46 3.92 - 5.13 x10(12)/L 10/14/2023 5:04 PM CDT NPR[facility] MCV 90.6 78.2 - 97.9 fL 10/14/2023 5:04 PM CDT NPR[facility] RBC Distrib Width 11.2(L) 12.2 - 16.1 % 10/14/2023 5:04 PM CDT NPR[facility] Platelet Count 394(H) 157 - 371 x10(9)/L 10/14/2023 5:04 PM CDT NPR[facility] Leukocytes 10.3(H) 3.4 - 9.6 x10(9)/L 10/14/2023 5:04 PM CDT NPR[facility] Neutrophils 7.76(H) 1.56 - 6.45 x10(9)/L 10/14/2023 5:04 PM CDT NPR[facility] Lymphocytes 1.96 0.95 - 3.07 x10(9)/L 10/14/2023 5:04 PM CDT NPR[facility] Monocytes 0.52 0.26 - 0.81 x10(9)/L 10/14/2023 5:04 PM CDT NPR[facility] Eosinophils 0.07 0.03 - 0.48 x10(9)/L 10/14/2023 5:04 PM CDT NPR[facility] Basophils <0.04 0.01 - 0.08 x10(9)/L 10/14/2023 5:04 PM CDT NPR[facility] Blood (Blood, Venous) 10/14/2023 4:58 PM CDT 10/14/2023 5:00 PM CDT Skye Pearce D.O. LAB BLOOD ADD-ON [facility] [address] [place] [address], [facility] NPRG [facility] [address] [facility] [place] [address] * (ABNORMAL) Comprehensive Metabolic Panel (10/14/2023 4:58 PM CDT) Potassium, P 3.8 3.6 - 5.2 mmol/L 10/14/2023 5:24 PM CDT NPR[facility] Sodium, P 138 135 - 145 mmol/L 10/14/2023 5:24 PM CDT NPR[facility] Chloride, P 103 98 - 107 mmol/L 10/14/2023 5:24 PM CDT NPR[facility] Bicarbonate, P 24 22 - 29 mmol/L 10/14/2023 5:24 PM CDT NPR[facility] Anion Gap, P 11 7 - 15 10/14/2023 5:24 PM CDT NPR[facility] BUN (Blood Urea Nitrogen), P 9 6 - 21 mg/dL 10/14/2023 5:24 PM CDT NPR[facility] Creatinine 0.53(L) 0.59 - 1.04 mg/dL 10/14/2023 5:24 PM CDT NPR[facility] Estimated GFR (eGFR) >90 >=60 mL/min/BS A 10/14/2023 5:24 PM CDT NPRG Comment: Estimated GFR calculated using the 2020 CKD_EPI creatinine equation. Calcium, Total, P 9.8 8.6 - 10.0 mg/dL 10/14/2023 5:24 PM CDT NPRG Glucose, P 114 70 - 140 mg/dL 10/14/2023 5:24 PM CDT NPR[facility] Protein, Total, P 8.0(H) 6.3 - 7.9 g/dL 10/14/2023 5:24 PM CDT NPRG Albumin, P 4.5 3.5 - 5.0 g/dL 10/14/2023 5:24 PM CDT NPR[facility] Aspartate Aminotransferase (AST), P 18 8 - 43 U/L 10/14/2023 5:24 PM CDT NPRG Alkaline Phosphatase, P 75 35 - 104 U/L 10/14/2023 5:24 PM CDT NPRG Alanine Aminotransferase (ALT), P 22 7 - 45 U/L 10/14/2023 5:24 PM CDT NPRG Bilirubin, Total, P <0.2 0.0 - 1.2 mg/dL 10/14/2023 5:24 PM CDT NPR[facility] Blood (Blood, Venous) 10/14/2023 4:58 PM CDT 10/14/2023 5:00 PM CDT Skye Pearce D.O. LAB BLOOD ADD-ON Performing Organization Address City/[facility]/ZIP Co de Phone Number [facility] [address] [place] [address], [facility] [address] [address] * Ethanol Level, Serum (10/14/2023 4:58 PM CDT) Ethanol, P <10 <10 mg/dL 10/14/2023 5:2 4 PM CDT NPR[facility] Blood (Blood, Venous) 10/14/2023 4:58 PM CDT 10/14/2023 5:00 PM CDT Skye Pearce D.O. LAB BLOOD NON ADD-ON [facility] [address] [place] [address], [address] [address] * Test, POCT, Urine (Lab) (10/14/2023 4:54 PM CDT) Test, POCT, U Negative 10/14/2023 5:08 PM CDT NPRG Urine (Urine, Midstream) 10/14/2023 4:54 PM CDT 10/14/2023 5:00 PM CDT Skye Pearce D.O. LAB POCT ORDERABLES - DEVICE [facility] [address] [place] [address], [facility] NPRG [facility] [address] [place] [address] * (ABNORMAL) Drug Screen Urine (10/14/2023 4:54 PM CDT) [facility] Amphetamines, U Negative Negative 10/14/2023 5:14 PM CDT NPRG Comment: ----ADDITIONAL INFORMATION---- Sagger Preparer's Cutoff: 500 ng/mL Barbiturates, U Negative Negative 10/14/2023 5:14 PM CDT NPRG Comment: ----ADDITIONAL INFORMATION---- Sagger Preparer's Cutoff: 200 ng/mL Benzodiazepin es, U Negative Negative 10/14/2023 5:14 PM CDT NPRG Comment: ----ADDITIONAL INFORMATION---- Sagger Preparer's Cutoff: 150 ng/mL Buprenorphine , U Negative Negative 10/14/2023 5:14 PM CDT NPRG Comment: ----ADDITIONAL INFORMATION---- Sagger Preparer's Cutoff: 10 ng/mL Cocaine, U Negative Negative 10/14/2023 5:14 PM CDT NPRG Comment: ----ADDITIONAL INFORMATION---- Sagger Preparer's Cutoff: 150 ng/mL Methadone, U Negative Negative 10/14/2023 5:14 PM CDT NPRG Comment: ----ADDITIONAL INFORMATION---- Sagger Preparer's Cutoff: 200 ng/mL Methamphetami giovanni, U Negative Negative 10/14/2023 5:14 PM CDT NPRG Comment: ----ADDITIONAL INFORMATION---- Sagger Preparer's Cutoff: 500 ng/mL Opiates, U Negative Negative 10/14/2023 5:14 PM CDT NPRG Comment: ----ADDITIONAL INFORMATION---- Sagger Preparer's Cutoff: 100 ng/mL Oxycodone, U Negative Negative 10/14/2023 5:14 PM CDT NPRG Comment: ----ADDITIONAL INFORMATION---- Sagger Preparer's Cutoff: 100 ng/mL Phencyclidine , U Negative Negative 10/14/2023 5:14 PM CDT NPRG Comment: ----ADDITIONAL INFORMATION---- Sagger Preparer's Cutoff: 25 ng/mL Tetrahydrocan nabinol, U Unconfirmed Positive(A) Negative 10/14/2023 5:14 PM CDT NPRG Comment: ----ADDITIONAL INFORMATION---- Sagger Preparer's Cutoff: 50 ng/mL Tricyclic Antidepressan ts, U Negative Negative 10/14/2023 5:14 PM CDT NPRG Comment: ----ADDITIONAL INFORMATION---- Sagger Preparer's Cutoff: 300 ng/mL THE ABOVE DRUG SCREEN PANEL IS FOR MEDICAL PURPOSES ONLY Urine (Urine, Midstream) 10/14/2023 4:54 PM CDT 10/14/2023 5:00 PM CDT Skye Pearce D.O. LAB URINE ORDERABLES [facility] [address] [place] [address], [facility] NPRG [place] [address] [place] [address] * Urinalysis with Microscopic if Indicated (10/14/2023 [...] 8.0 10/14/2023 5:04 PM CDT NPRG Specific [place] 1.015 1.001 - 1.035 10/14/2023 5:04 PM CDT NPRG Urobilinogen 0.2 0.2 - 1.0 mg/dL 10/14/2023 5:04 PM CDT NPRG Urine (Urine, Midstream) 10/14/2023 4:54 PM CDT 10/14/2023 5:00 PM CDT Skye Pearce D.O. 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 Do NOT crush, chew, or split tablet. Given 10/14/2023 9:10 PM CDT 300 mg nicotine 21 mg/24 hr 1 patch (NICODERM CQ) 1 patch, transdermal, Administer over 24 Hours, Once, On 10/14/23 at 1658, For 1 dose Medication Applied 10/14/2023 5:07 PM CDT 1 patch Left Shoulder OLANZapine disintegrating tablet 10 mg (ZyPREXA ZYDIS) 10 mg, oral, Daily at bedtime, First dose on 10/14/23 at 2100, When splitting ODT at bedside, handle with gloves and a pill splitter to prevent moisture contact. Given 10/14/2023 8:52 PM CDT 10 mg documented in this encounter Active and Recently Administered Medications Times are shown in CDT. Scheduled Medication Order 10/12/2023 10/13/2023 10/14/2023 lithium carbonate ER tablet 300 mg (LITHOBID) (COMPLETED) 300 mg, oral, Once, On 10/14/23 at 2054, For 1 dose, Swallow whole. Do NOT crush, chew, or split tablet. 2109 (Given - Provid er: Ramy Coronado R.N.) nicotine 21 mg/24 hr 1 patch (NICODERM CQ) (CANCELED) 1 patch, transdermal, Administer over 24 Hours, Once, On 10/14/23 at 1658, For 1 dose 170 (Medication Isak lied - Provider: Priscilla Solomon R.N.)2110 (Due: Medication Removed - Provider: Discharge Provider, Automatic - Comment: Time automatically adjusted from order being discontinued) OLANZapine disintegrating tablet 10 mg (ZyPREXA ZYDIS) 10 mg, oral, Daily at bedtime, First dose on 10/14/23 at 2100, When splitting ODT at bedside, handle with gloves and a pill splitter to prevent moisture contact. 2051 (Given - Provid er: Ramy Coronado RKrystin.) documented in this encounter Additional Health Concerns Infection Onset Date Last Indicated Resolved Time COVID19 Pending 10/14/2023 10/14/2023 10/14/2023 6 :52 PM CDT Assessment Noted Time PHQ-9 Depression Total Score: 10 024 10:00 PM CDT documented as of this encounter Care Teams Cell Room Operator Relationship Specialty Start Date End Date None Reported, Pcp PCP - General Family Medicine 10/14/23 documented as of this encounter
--- OUTSIDE RECORDS SUMMARY | 2023-10-20 04:24 | XMS_ITS | Encounter Summary ---
Author Name Unknown Organization [facility] Address [address] [place] [address] Care Team Providers Care Production Line Welder Name Role Phone None Reported, Pcp Primary Care Provider Unavail able Encounter Details Date Type Department Care Team (Latest Contact Info) Description 10/10/2023 Intake [facility] Social History Tobacco [...] oz pu re alcohol) occasionally drinks tequilla [facility] Utilities Answer Date Recorded In the past 12 months has e electric, gas, oil, or water company threatened to shut off services in your home? No 10/10/2023 Humiliation, Afraid, Rape, and Kick questionnair e Answer Date Recorded Within the last year, have y ou been afraid of your partner or ex-partner? No 10/10/2023 Within the last year, have y ou been humiliated or emotionally abused in other ways by your partner or ex-partner? No Within the last year, have y ou been kicked, hit, slapped, or otherwise physically hurt by your partner or ex-partner? No 10/10/2023 Within the last year, have y ou been raped or forced to have any kind of sexual activity by your partner or ex-partner? No 10/10/2023 PHQ-2 Answer Date Recorded PHQ-2 Score 2 10/10/2023 Hunger Vital Sign Answer Date Recorded Within the past 12 months, y ou worried that your food would run out before you got the money to buy more. Never true 10/10/19 24 Within the past 12 months, t he food you bought just didn't last and you didn't have money to get more. Never true 10/10/2023 PRAPARE - Transportation Answer Date Re corded In the past 12 months, has l ack of transportation kept you from medical appointments or from getting medications? No 09/18 In the past 12 months, has l ack of transportation kept you from meetings, work, or from getting things needed for daily living? No 10/10/2023 Depression Answer Date Recor ded PHQ-9 Total Score (max 27) 10 10/09 Dental Answer Date Recorded Dental: Regular Dentist Unknown 10/10/19 Housing Stability Answer Date Recorded What is your living situation today? I have a [facility] place to live 10/10/2023 Sex and Gender Information Value Date Recorded Sex Assigned at Not on file Gender Identity Not on file Sexual Orientation Not on file documented as of this encounter Plan of Treatment Upcoming Encounters Date Type Department Care Team (Late st Contact Info) Description 10/23/2023 11:30 AM CDT Office Visit Department of Family Medicine in [place], [place] [address] [place] [address] Lex Olmos M.D. [address] [place] [address] documented as of this encounter Visit Diagnoses Not on filedocumented in this encounter Additional Health Concerns Infection Onset Date Last Indicated Resolved Time COVID19 Pending 10/14/2023 10/14/2023 10/14/2023 6 :52 PM CDT Assessment Noted Time PHQ-9 Depression Total Score: 10 024 10:00 PM CDT documented as of this encounter Care Teams Production Line Welder Relationship Specialty Start Date End Date None Reported, Pcp PCP - General Family Medicine 10/14/23 documented as of this encounter
--- OUTSIDE RECORDS SUMMARY | 2023-10-20 04:24 | XMS_ITS | Encounter Summary ---
Author Name Unknown Organization [facility] Address [address] [place] [address] Care Team Providers Care Veneer Glue Jointer Feedback Name Role Phone Unavailable Primary Care Provider Unavailabl e Encounter Details Date Type Department Care Team (Late st Contact Info) Description 10/05/2023 Notes/Orders [place] [address] [facility] [address] [place] [address] Joyce Hampton, DESIGN/ANIMATION INSTRUCTOR, SEED POTATO CUTTER [address] [place] [address] Encounter for screening examination for mental health and behavioral disorders (Primary Dx) Social History Tobacco Use Types Packs/Day Years Used Date Smoking Tobacco: Every Day Cigarettes 1 25.3 Started: 07/20/1998 Alcohol Use Standard Drinks/Week Comments [...] (Late st Contact Info) Description 06/02/2024 Notes/Orders [facility]-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
== END 2023-10-09 19:21 | disposition home or self-care (01) ==
PROVIDERS: Visit Provider Family Medicine
DX: F10.129 Alcohol abuse with intoxication, unspecified (principal); F29 Unspecified psychosis not due to a substance or known physiological condition
CPT/HCPCS: A0425; A0427

== ENCOUNTER 2023-10-09 19:55 | Emergency (ER) | payer OTHER, SELFPAY ==
[2023-10-09 20:28] VITALS: BP 153/108; PULSE 110; RESP 16; TEMP 36.4; O2SAT 99; BMI 18.8
--- NOTE | 2023-10-09 21:29 | ED_ITS ---
HPI - Psych General Time Seen by Provider: 21:00 Date Seen: 10/09/23 Chief Complaint: Psychiatric Problem/Disorder Stated Complaint: Behavioral eval Time Seen by Provider: 10/09/23 21:00 Source: patient, family (spouse) and EMS Mode of arrival: EMS Limitations: no limitations History of Present Illness HPI Narrative: Patient is a 38-year-old female with a past psychiatric history of schizoaffective bipolar who presents the emergency department from home by EMS for mental health evaluation. Patient reports that she came in because her wanted to make sure she was okay. Patient states that there were no specific events and patient has no physical complaints. Patient states that she lives at home with her , a 11-year-old son, and 6-month-old baby. Patient reports some depression but nothing unusual. Patient denies any suicide ideation, homicidal ideation, intent to self-harm. No recent self- injurious behaviors. Patient reports daily marijuana use, daily alcohol use ( approximately 12 beers daily), nicotine use, denies any other substance use. Patient with no other history or complaints. Per spouse patient has been having some erratic and bizarre behavior over the past 4-5 days. Spouse reports that this morning patient made an odd comment to him how do I beat the devil so he had her mother, water and stay with her today while he was at work. reports that he came home from work today and initially she ran in jump into his arms and was so happy to see him and then a few minutes later she got very angry and upset. reports that later she went into the garage and was throwing things around breaking things in the garage. He then found her without a shirt on the garage sitting on the floor and shortly later completely naked wrapped in a blanket. reports ongoing bizarre behavior, states that she Peed into a bucket, and smeared the urine on her feet and face. eventually called 911 and had her mother come over to take the kids. reports some more bizarre behavior approximately 4-5 years ago where she was hospitalized at [facility] and was diagnosed with schizoaffective bipolar with polysubstance use. reports patient extremely manic and happy and than very angry. states this is not like her and he would like her to get help. states that after her prior hospitalization she was admitted there, and then discharge in follow-up with [facility] and was on medication however shortly after she stopped medications and stop following up. States that she has been doing well since that time. Related Data Home Medications Medication Instructions Recorded Confirmed No Known Home Medications 10/09/23 10/09/23 Allergies Allergy/AdvReac Type Severity Reaction Status Date / Time No Known Drug Allergies Allergy Verified 10/09/23 20:35 Review of Systems Narrative: General: No fevers or chills Skin: No rash or diaphoresis Eyes: No eye redness or discharge Ears/Nose/Throat: No rhinorrhea or nasal congestion Respiratory: No cough or shortness of breath Cardiovascular: No chest pain or palpitations Gastrointestinal: No abdominal pain, nausea, vomiting, or diarrhea Genitourinary: No urinary frequency, hematuria, or dysuria Musculoskeletal: No arthralgias or myalgias Neurologic: No numbness or weakness Hematologic/Lymphatic/Immunologic: No leg swelling, no easy bruising/bleeding Endocrine: No polyuria/polydipsia Psych: No suicidal ideation homicidal ideation, intent to self-harm PFSH PFS Social History Smoking Status: Current every day smoker What tobacco products do you use: cigarettes Do you use any of these nicotine containing products: Vaping Products How often do you have a drink containing alcohol: 2-3 times a week AUDIT-C Alcohol total score: 3 Non-prescribed substance use: marijuana (any form) Exam Narrative: Exam Narrative: General: Afebrile, no acute distress HEENT: Normocephalic, atraumatic, conjunctiva normal. MMM Neck: non-tender, supple Cardio: regular rate. regular rhythm Resp: Normal work of breathing, no respiratory distress, lungs clear bilate rally, no wheezing, rhonchi, rales Chest/Back: no visual signs of trauma, no CVA tenderness Abdomen: soft, non distension, no tenderness, no peritoneal signs Neuro: alert and fully oriented. CN II-XII grossly intact. Grossly normal strength and sensation in all extremities. MSK: no deformities. Normal range of motion Integumentary/Skin: no rash visualized, normal color Psych: denies suicide ideation, homicidal ideation, or intent to self harm, odd behavior Const: Vital Signs, click to edit/add: Vital Signs - 24 hr 10/09/23 20:28 Temperature 97.6 F Pulse Rate [Pulse Oximeter] 110 H Respiratory Rate 16 Blood Pressure [Ri ght Upper Arm] 153/108 H Pulse Oximetry 99 Oxygen Delivery Me thod Room Air Course Course ED Course: 38-year-old female with history of schizoaffective bipolar presents to emergency department by EMS with her for bizarre behavior over the past few days. Upon arrival patient is calm, cooperative, no distress. Patient denies suicide ideation or homicide ideation, intent to self-harm. During my evaluation patient's thought content does not appear to be delusional or paranoid however patient does not provide much information. Per collateral information the concerned for psychosis. Will plan for behavior health assessment. I reviewed comprehensive labs which were unremarkable with no evidence of acute infection, no acute metabolic or electrolyte abnormality, urine drug test positive for marijuana, alcohol level of 0.14. COVID negative. Patient medically cleared. Behavior health charge master coordinator evaluate the patient and recommends inpatient admission due to increasing bizarre behavior, concerns for psychosis. Patient was hospitalized approximately 7 years ago for acute psychosis with similar presentation. Patient currently with lack of insight into her current presentation. Plan for voluntary admission however patient is not agreeable to stay will place on 72 hour hold given concerns of acute psychosis, lack of insight, patient unable to care for herself and others. Please see behavioral health (DEC) note for complete details. Vital Signs Vital signs: Initial Vital Signs Temperature 97.6 F 10/09/23 20:28 Temperature Source Temporal Artery Scan 10/09/23 20:28 Pulse Rate 110 H 10/09/23 20:28 Respiratory Rate 16 10/09/23 20:28 Blood Pressure 153/108 H 10/09/23 20:28 Blood Pressure Mean 123 H 10/09/23 20:28 Blood Pressure Position Sitting 10/09/23 20:28 Pulse Oximetry 99 10/09/23 20:28 Oxygen Delivery Method Room Air 10/09/23 20:28 Vital Signs Temperature 97.6 F 10/09/23 20:28 Pulse Rate 110 H 10/09/23 20:28 Respiratory Rate 16 10/09/23 20:28 Blood Pressure 153/108 H 10/09/23 20:28 Pulse Oximetry 99 10/09/23 20:28 Oxygen Delivery Method Room Air 10/09/23 20:28 Temperature 97.6 F 10/09/23 20:28 Pulse Rate 110 H 10/09/23 20:28 Respiratory Rate 16 10/09/23 20:28 Blood Pressure 153/108 H 10/09/23 20:28 Pulse Oximetry 99 10/09/23 20:28 Oxygen Delivery Method Room Air 10/09/23 20:28 Medications Administered Medications: Generic Name Dose Route Start Last Admin Trade Name Freq PRN Reason Stop Dose Admin Nicotine Polacrilex 2 mg 10/09/23 21:35 10/09/23 22:41 Nicotine 2 Mg Gum BUCCAL 2 mg Q1H PRN Administration MDM - Psych Lab Data Labs: Lab Results 10/09/23 10/09/23 10/09/23 Range/Units 21:00 21:34 21:51 WBC 8.74 (4.50-11.00) K/uL RBC 4.28 (4.00-5.20) m/uL Hgb 13.3 (12.0-16.0) gm/dL Hct 39.0 (33.0-51.0) % MCV 91 (80-100) fL MCH 31 (26-34) pg MCHC 34 (32-36) gm/dL RDW Coeff of Rigo 11.3 L (11.5-15.5) % Plt Count 379 (140-440) K/uL Neut % (Auto) 56.1 (42.0-72.0) % Lymph % (Auto) 37.2 (20-44) % [place] % (Auto) 5.0 (0.0-11.0) % Eos % (Auto) 1.3 (0.0-7.0) % Baso % (Auto) 0.3 (0.0-3.0) % Neut # (Auto) 4.90 (1.7-7.0) K/uL Lymph # (Auto) 3.25 H (0.90-2.90) K/uL [place] # (Auto) 0.40 (0.00-0.90) K/UL Eos # (Auto) 0.11 (0.00-0.50) K/uL Baso # (Auto) 0.03 (0.00-0.30) K/uL Abs Immat Gran (auto) 0.01 (0.00-0.30) K/uL Imm/Tot Granulo (auto) 0.1 % Sodium 141 (135-149) mmol/L Potassium 3.9 (3.6-5.1) mmol/L Chloride 109 (96-114) mmol/L Carbon Dioxide 24 (20-32) mmol/L Anion Gap 8 (7-15) mEq/L BUN 8 (5-24) mg/dL Creatinine 0.4 L (0.5-1.5) mg/dL Estimated Creat Clear 165.47 Estimated GFR 131 ml/min Glucose 80 (60-115) mg/dL Calcium 9.4 (8.4-10.6) mg/dL Total Bilirubin 0.4 (0.1-1.5) mg/dL AST 33 (12-35) U/L ALT 28 (4-35) U/L Alkaline Phosphatase 71 (40-150) U/L Total Protein 8.0 (6.0-8.3) g/dL Albumin 4.7 (3.3-5.0) g/dL HCG, Qual Negative (Negative) Urine Color Yellow (Yellow) Urine Appearance Clear (Clear) Urine pH 5.5 (5.0-8.5) Ur Specific [place] <= 1.005 (1.000-1.030) Urine Protein Negative (Negative) Urine Glucose (UA) Negative (Negative) Urine Ketones Negative (Negative) Urine Blood Trace-intact A (Negative) Urine Nitrite Negative (Negative) Urine Bilirubin Negative (Negative) Urine Urobilinogen 0.2 (0.2-1.0) Ur Leukocyte Esterase Negative (Negative) Urine RBC 0-2 (0-2) Urine WBC 0-2 (0-5) Ur Squamous Epith Cells Few (None-Few) Urine Bacteria None (None) Urine Opiates Screen Negative (Negative) Ur Oxycodone Screen Negative (Negative) Urine Methadone Screen Negative (Negative) Ur Barbiturates Screen Negative (Negative) U Tricyclic Antidepress Negative (Negative) Ur Phencyclidine Scrn Negative (Negative) Ur Amphetamines Screen Negative (Negative) U Methamphetamines Scrn Negative (Negative) U Benzodiazepines Scrn Negative (Negative) Urine Cocaine Screen Negative (Negative) U Marijuana (THC) Screen POSITIVE A (Negative) Ur Drug Screen Comment See Note Ethyl Alcohol 0.14 H (0.01-0.03) % SARS-CoV-2 (PCR) Negative SARS-CoV-2 (Negative) Discharge Plan Discharge Patient Disposition: Pending Disposition
[2023-10-09 21:50] LABS: Appearance Urine Clear (Clear); Bilirubin Urine Negative (Negative); Blood Urine Trace-intact (Negative); Color Urine Yellow (Yellow); Glucose Urine Negative (Negative); Ketones Urine Negative (Negative); Leukocyte Esterase Urine Negative (Negative); Nitrite Urine Negative (Negative); Protein Urine Negative (Negative); Specific Gravity Urine <= 1.005 (1.000-1.030); Urobilinogen Urine 0.2 (0.2-1.0); pH Urine 5.5 (5.0-8.5)
[2023-10-09 21:59] LABS: Amphetamine Screen Urine Negative (Negative); Barbiturate Screen Urine Negative (Negative); Benzodiazepines Screen Urine Negative (Negative); Cannabinoid Screen Urine POSITIVE (Negative); Cocaine Screen Urine Negative (Negative); Methadone Screen Urine Negative (Negative); Methamphetamines Screen Urine Negative (Negative); Opiate Screen Urine Negative (Negative); Oxycodone Screen Urine Negative (Negative); Phencyclidine Screen Urine Negative (Negative); Tricyclic Antidepressant Urine Negative (Negative)
[2023-10-09 22:11] LABS: RBC Urine 0-2 (0-2); WBC Urine 0-2 (0-5)
[2023-10-09 22:12] LABS: Squamous Epithelial Cell Urine Few (None-Few)
[2023-10-09 22:13] LABS: Basophils Absolute Auto 0.03 K/uL (0.00-0.30); Basophils Percent Auto 0.3 % (0.0-3.0); Eosinophils Absolute Auto 0.11 K/uL (0.00-0.50); Eosinophils Percent Auto 1.3 % (0.0-7.0); Hemoglobin* 13.3 gm/dL (12.0-16.0); Immature Granulocytes Abs Auto 0.01 K/uL (0.00-0.30); Immature Granulocytes Pct Auto 0.1 %; Lymphocytes Absolute Auto 3.25 K/uL (0.90-2.90); Lymphocytes Percent Auto 37.2 % (20-44); Mean Corpuscular HGB Conc 34 gm/dL (32-36); Mean Corpuscular Hemoglobin 31 pg (26-34); Mean Corpuscular Volume 91 fL (80-100); Neutrophils Percent Auto 56.1 % (42.0-72.0); Platelet Count* 379 K/uL (140-440); RDW Coefficient of Variation % 11.3 % (11.5-15.5); Red Blood Count 4.28 m/uL (4.00-5.20); White Blood Count* 8.74 K/uL (4.50-11.00)
[2023-10-09 22:14] LABS: Slide Review Reflex No
--- OUTSIDE RECORDS SUMMARY | 2023-10-09 22:25 | XMS_ITS | Encounter Summary ---
Author Name Unknown Organization [facility] Address [address] [place] [address] Care Team Providers Care [employer] Mechanical Name Role Phone Unavailable Primary Care Provider Unavailabl e Encounter Details Date Type Department Care Team (Late st Contact Info) Description 10/05/2023 Notes/Orders [facility] [address] [facility] [address] [place] [address] Joyce Hampton, POLICY INTERN, RAILROAD POLICE OFFICER [address] [place] [address] Encounter for screening examination for mental health and behavioral disorders (Primary Dx) Social History Tobacco Use Types Packs/Day Years Used Date Smoking Tobacco: Every Day Cigarettes 1 25.2 Started: 07/20/1998 Alcohol Use Standard Drinks/Week Comments Not Currently 15 (1 standard drink = 0.6 oz pu re alcohol) Depression Answer Date Recor ded Last EPDS Total Score 3 10/05/2023 Last EPDS Self Harm Result 0-->never 10/04 Sex and Gender Information Value Date Recorded Sex Assigned at Not on file Gender Identity Not on file Sexual Orientation Not on file documented as of this encounter Plan of Treatment Upcoming Encounters Date Type Department Care Team (Late st Contact Info) Description 06/02/2024 Notes/Orders [facility]-CHRONOMETER REPAIRER [address] [facility], [address] [address] Britany Serrato RN documented as of this encounter Visit Diagnoses Diagnosis Encounter for screening examination for mental health and behavioral disorders- Primary documented in this encounter
--- OUTSIDE RECORDS SUMMARY | 2023-10-09 22:25 | XMS_ITS | Clinical Summary ---
Author Name Unknown Organization [facility] Address [address] [place] [address] Care Team Providers Care Manager [place] Name Role Phone Unavailable Primary Care Provider Unavailabl e Source Comments You are receiving this document as you are listed as the primary care provider,follow-up provider, or the patient has been referred to you for consultation.This is in compliance with the Medicare and[facility] EHR Incentive Program,which states Providers who transition their patient to another setting of careor provider of care or refers their patient to another provider of care shouldprovide summary care record for each transition of care or referral. [facility] Allergies No known active allergies Medications Medication Sig Dispensed Refills Start Date End Date Status Blood Glucose Monitoring Suppl (BLOOD GLUCOSE METER KIT)Indications:Diet controlled gestational diabetes mellitus (GDM), antepartum Use as directed. 1 Kit 01/05/2023 Active blood glucose test stripIndications:Diet controlled gestational diabetes mellitus (GDM), antepartum Use 1 Each to test 4 times a day. 100 Strip 11 01/05/2023 Active lancetsIndications:Di et controlled gestational diabetes mellitus (GDM), antepartum Use 1 Each to test 4 times a day. 100 Each 11 01/05/2023 Active NIFEdipine CC (ADALATCC) 30 MG 24 hour release tabletIndications:Pre -eclampsia, severe, delivered Take 1 Tablet (30 mg) by mouth. 03/25/2023 Active labetalol (TRANDATE) 300 MG tabletIndications:Pre -eclampsia, severe, delivered Take 2 Tablets (600 mg) by mouth every 8 hours. 60 Tablet 1 03/29/2023 Active Active Problems Problem Noted Date Diagnosed Date Macrosomia affecting managem ent of mother in third trimester 02/13/2023 Polyhydramnios in third trimester 02/13/2023 Consultation for sterilization 02/13/2023 Diet controlled gestational diabetes mellitus (GDM), antepartum 01/04/2023 Rubella non-immune status, antepartum 09/02/2022 Careplan: [facility] 09/02/2022 Overview: This patient is enrolled in the [facility] Program. The program provides patients with support, education, referrals and resources during their . Reason for enrollment: Recovery supports, THC, resources as needed For more information, please contact Roopa Lucero, [facility] Specialist, at [phone]. High risk , antepartum 08/30/2022 Antepartum multigravida of advanced maternal age 0308/30/2022 ADHD (attention deficit hyperactivity disorder) 09/05/2011 Overview: Patient is followed by [facility] for ongoing prescription of stimulants. Due to illegal substance in urine on 11/02/2015 will not receive further stimulants from [facility]. Tobacco use disorder 09/05/2011 Resolved Problems Problem Noted Date Diagnosed Date Resolved Date Finger amputation, no complication, traumatic 08/31/19 23 08/30/2022 Polysubstance dependence 09/22/2015 Schizoaffective disorder, bipolar type 09/22/2015 08/30/2022 Suicidal ideation 09/22/2015 08/30/2022 Encounters Date Type Department Care Team Description 10/05/2023 Notes/Orders [facility] [address] [facility] [address] [place] [address] Joyce Hampton, MANAGER PERSONAL, GLASS BEVELER Encounter for screening examination for mental health and behavioral disorders (Primary Dx) from Last 3 Months Immunizations Name Administration Dates Next Due Tdap 01/02/2023,06/19/2012,06/19/2004 Family History Medical History Relation Name Comments Diabetes Father High Cholesterol Father Diabetes Mother High Cholesterol Mother Hypertension Sister Relation Name Status Comments Father Alive Mother Alive Maternal Grandfather Alive Maternal Grandmother Paternal Grandfather Alive Paternal Grandmother Sister Alive Social History Tobacco Use Types Packs/Day Years Used Date Smoking Tobacco: Every Day Cigarettes 1 25.2 Started: 07/20/1998 Tobacco Cessation:Ready to Q uit: Not Asked; Counseling Given: Not Answered Alcohol Use Standard Drinks/Week Comments Not Currently 15 (1 standard drink = 0.6 oz pu re alcohol) Depression Answer Date Recor ded Last EPDS Total Score 3 10/05/2023 Last EPDS Self Harm Result 0-->never 10/04 Sex and Gender Information Value Date Recorded Sex Assigned at Not on file Gender Identity Not on file Sexual Orientation Not on file Last Filed Vital Signs Vital Sign Reading Time Taken Comments Blood Pressure 118/72 03/29/2023 10:33 AM CDT Pulse 73 03/29/2023 10:33 AM CDT Temperature - - Respiratory Rate - - Oxygen Saturation - - Inhaled Oxygen Concentration - - Weight 72.6 kg (160 lb) 03/29/2023 10:33 AM CDT Height 170.2 cm (5' 7) 08/30/2022 11:14 AM CDT Body Mass Index 25.06 08/30/2022 11:14 AM CDT Plan of Treatment Upcoming Encounters Date Type Department Care Team (Late st Contact Info) Description 06/02/2024 Notes/Orders [facility]-MINING ENGINEER [id number] [place] [address], [address] [address] Britany Serrato, RN Health Maintenance Due Date Last Done Comments Pneumococcal (1 - PCV) 1992 Adult Preventive Visit 2004 HepB (1) 2005 COVID-19 Vaccine ( - 2022-2 4 season) 2023 Influenza (#1) 2023 Cervical Cancer Screening 08/31/2027 08/30/2022 DTaP/Tdap/Td (4 - Tdap) 01/02/2033 01/03/20, 06/19/2012, 06/19/2004 Zoster/Shingles (1 of 2) 2036 HIV Screening (Preventive Services) Completed 08/30/2022 Hep C Screening (Preventive Services) Completed 08/30/2022 HPV Vaccine Aged Out No longer eligi ble based on patient's age to complete this topic HepA Aged Out No longer eligi ble based on patient's age to complete this topic Hib Aged Out No longer eligi ble based on patient's age to complete this topic IPV (Polio) Aged Out No longer eligi ble based on patient's age to complete this topic MCV4 Aged Out No longer eligi ble based on patient's age to complete this topic Procedures Procedure Name Priority Date/Time Associated Diagnosis Comments PAP TEST Routine 08/30/2022 1:10 PM CDT Pap smear for cervical cancer screening HIV 1/2 AG/AB 4TH GEN Routine 08/30/2022 12:17 PM CDT High risk , antepartum HEPATITIS C ANTIBODY, WITH REFLEX Routine 08/30/2022 12:17 PM CDT High risk , antepartum from Last 3 Months or Most Recently Relevant to Health Maintenance Results * PAP Test (08/30/2022 1:10 PM CDT) Case Report Pap ? Case: [id number] ? Authorizing Provider: ??Brianna Ma, RYAN, ?Collected: ? 08/30/2022 1310 ? CNM ? Ordering Location: ? [facility] ? Received: ?08/30/2022 1325 ? Services-MINING ENGINEER ? First Screen: ?Anay Khalil ? Specimen: ?Pap Test, Routine, Cervix/Endocervix ? 09/20/2022 2:02 PM CDT [facility] Pap Specimen Adequacy Satisfactory for evaluation, endocervical/reeder sformation zone component present. 09/20/2022 2:02 PM CDT [facility] Pap Interpretation (NILM) Negative for intraepithelial lesion or malignancy. 09/20/2022 2:02 PM CDT [facility] Pap Disclaimer The Pap test is a screening test designed to aid in the detection of cervical cancer and its precursor lesions. It is not a diagnostic procedure and should not be used as the sole means of detecting cervical cancer. Both false-positive and false-negative results may occur. 09/20/2022 2:02 PM CDT [facility] Gross Description The specimen is received in SurePath fixative and properly labeled. 1 Pap-stained SurePath slide is prepared. 09/20/2022 2:02 PM CDT [facility] Embedded Images 2:02 PM CDT [facility] Other Specimen Type ENTIRE ENDOCERVIX / Unknown 08/30/2022 1:10 PM CDT 08/30/2022 1:25 PM CDT Comment:LMP: No LMP recorded (lmp unknown). Patient is . Brianna Ma APRN, CNM LAB PATHOLOGY Performing Organization Address [facility] de Phone Number [facility] [address] * HIV 1/2 Ag/Ab 4th Generation (08/30/2022 12:17 PM CDT) Pathologist [facility] HIV 1/2 Antigen/Antib jc (4th generation) Negative (Non Reactive) Negative (Non Reactive) 08/30/2022 8:51 PM CDT [facility] Comment:HIV-1 p24 Antigen an d HIV-1/HIV-2 Antibody not detected Blood Venipuncture / Unknown 08/30/2022 12:17 PM CDT 08/30/2022 12:17 PM CDT Brianna Ma APRN, CNM LAB_1 Performing Organization Address [facility] de Phone Number [facility] [address] * Hepatitis C Antibody, with Reflex (08/30/2022 12:17 PM CDT) Pathologist [facility] Hepatitis C Antibody Negative (Non Reactive) Negative (Non Reactive) 08/30/2022 8:51 PM CDT [facility] Comment:Antibodies to HCV no t detected. Does not exclude the possiblity of exposure to HCV. Blood Venipuncture / Unknown 08/30/2022 12:17 PM CDT 08/30/2022 12:17 PM CDT Brianna Ma APRN, CNM LAB_1 Performing Organization Address [facility] de Phone Number [facility] [address] from Last 3 Months or Most Recently Relevant to Health Maintenance [address] [place] [address]
--- OUTSIDE RECORDS SUMMARY | 2023-10-09 22:25 | XMS_ITS | Continuity of Care Document ---
Author Name [facility] Organization DOD-DE Care Team Providers Care Dance Hall Hostess Name Role Phone DOD-DE Unavailable Unavailable Problems Combined list of problems from Department of Defense and Veterans Affairs facilities. It does not include entries that were removed or entered in error. Problem Status Onset Date Problem Type Date of Resolution Comments Source Gynecologic Services Intrauterine Device (IUD) Insertion Active Condition [facility] Implantable Contraceptive Capsules Insertion Inactive Condition [facility] routine history and physical Active Condition [facility] visit for: screening exam depression Inactive Condition [facility] Inquiry And Counseling: Family Planning Active Condition DoD premature rupture of membranes - antepartum condition or com Inactive Condition [facility] Need For Vaccination Against Influenza Inactive Condition [facility] Need For Vaccination Against Combinations Of Diseases Inactive Condition [facility] Blood Pressure Isolated Elevated Active Condition [facility] Patient Counseling: Inquiry & Counseling Active Condition [facility]D Supervision Of Normal Inactive Condition DoD depression Active Condition DoD nicotine dependence continuous Active Condition DoD matern tobacco use complic preg//puerper antepart cond Active Condition [facility] Education Active Condition DoD Ed Initial Visit What To Expect In Normal Active Condition [facility] Ed Initial Visit Development In 1st Trimester Active Condition DoD Immunizations Combined list of available immunizations from the Department of Defense and Veterans Affairs facilities. Immunization Series Date Given Administered By Site Reaction Lot Number CVX Code Drug Out Patient Therapist Status Comments Source influenza virus vaccine, split virus (incl. purified surface antigen)-reti red CODE 1 2012 FERNANDO LANTIGUA [id number] Sanofi Pasteur (P[facility]) complet ed influenza virus vaccine, split virus (incl. purified surface antigen)- retired CODE DoD tetanus toxoid, reduced diphtheria toxoid, and acellular pertu is vaccine, adsorbed 1 2012 FERNANDO LANTIGUA [id number] [facility] [employer] ([facility]) complet ed tetanus toxoid, reduced diphtheri a toxoid, and acellular pertussis vaccine, adsorbed DoD Encounters Combined list of: 1) Encounters from Department of Veterans Affairs facilities going back up to thelast 18 months. 2) Encounters from the Department of Defense facilities going back up to 280 months. Location Location Details Encounter Type Encounter Number Reason For Visit Attending Provider ADM Date DC Date Status Disposition Source [facility] [place] OUTPATIENT [id number] SATYA Corado 04/03 Released w/o Limitations [facility] [place] [facility]) OUTPATIENT [id number] tob rositaHARPER Toscano 04/11 Released w/o Limitations [facility] [place] [facility]) OUTPATIENT [id number] ISABEL ROSITA [id number] CROW ANTONIO 05/22 Released w/o Limitations [facility] [place] [facility] TELE CONSULT [id number] Notes Entered by: KARLEE YUEN 01 Jun 2012 0926 ------- ------- ------- ------- -- Outpt consult BEATA ABDULLAHI 06/01 Referred for Appointment [facility] TELE CONSULT [id number] Notes Entered by: KARLEE YUEN 27 Jun 2012 1046 ------- ------- ------- ------- -- Outpt consult BEATA ABDULLAHI 06/27 Referred for Appointment [facility] [place] OUTPATIENT [id number] Notes Entered by: DARREL WALTON 29 Jun 2012 0157 ------- ------- ------- ------- -- cold/fl u symptom s CARLA VAZQUEZ 06/29 Released w/o Limitations [facility]( [facility] [place]) OUTPATIENT [id number] isabel cad [id number] CROW ANTONIO 07/18 Released w/o Limitations [facility] [place] [facility]) OUTPATIENT [id number] ISABEL ROSITA [id number] CROW ANTONIO Coral 08/14 Released w/o Limitations [facility] [place] [facility] [place] OUTPATIENT [id number] ISABEL rosita:09/17 CROW ANTONIO Coral 09/04 Released w/o Limitations [facility] [place] [facility] [place] OUTPATIENT [id number] ISABEL rosita:09/17 JORGE ALBERTO YOLANDA S 09/12 Released w/o Limitations [facility] [place] [facility] [place] OUTPATIENT [id number] Notes Entered by: Jeannie SPICER 12 Sep 2012 1217 ------- ------- ------- ------- -- REFERRE D FROM CLINIC FOR HIGH BLOOD PRESSUR OMAR SEALS 09/12 Released w/o Limitations [facility]( [facility] [place] DIRECT TO [facility] FROM OTHER THAN ER OR [facility] [id number] MAGALI QUILES 09/18 DISCHARGED HOME [facility] [place] OUTPATIENT [id number] Notes Entered by: KEVYN ODOM 19 Sep 2012 0049 ------- ------- ------- ------- -- SROM check AMGALI QUILES 09/19 Admitted [facility] [place] INPATIENT [id number] FERNANDO LANTIGUA 09/20 Inpatient- Still a Patient [facility]( [facility]) [facility] [place] OUTPATIENT [id number] 11 weeks post OMAR HANSEN 12/06 Released w/o Limitations [facility] [place] [facility] Procedures Combined list of: 1) Procedures from Department of Veterans Affairs facilities going back up to thelast 18 months, not all VA non-surgical procedures are included; 2) All procedures from the Department of Defense facilities. Procedure Procedure Type Code Date Perfomer Comments Sourc e CARE VISIT () 3 [facility] REPAIR OF OTHER CURRENT OBSTETRIC LACERATION 3 [facility] REPAIR OF CURRENT OBSTETRIC LACERATION OF CERVIX 3 [facility] MEDICAL INDUCTION OF LABOR 3 [facility] OTHER MONITORING 3 [facility] INFLUENZA VIRUS VACCINE, TRIVALENT (IIV3), SPLIT VIRUS, 0.5 ML DOSAGE, FOR INTRAMUSCULAR USE 3 [facility] NON-STRESS TEST 3 [facility] SUBSEQ CARE VISIT () [EXCLS:PATIENTS WHO ARE SEEN FOR A CONDITION UNREL TO / CARE (EG,AN UP RESPIR INFECT;PATIENTS SEEN FOR CONSULTATION ONLY,NOT FOR CONT CARE)] 3 [facility] SUBSEQ CARE VISIT () [EXCLS:PATIENTS WHO ARE SEEN FOR A CONDITION UNREL TO / CARE (EG,AN UP RESPIR INFECT;PATIENTS SEEN FOR CONSULTATION ONLY,NOT FOR CONT CARE)] 3 [facility] SUBSEQ CARE VISIT () [EXCLS:PATIENTS WHO ARE SEEN FOR A CONDITION UNREL TO / CARE (EG,AN UP RESPIR INFECT;PATIENTS SEEN FOR CONSULTATION ONLY,NOT FOR CONT CARE)] 3 [facility] SUBSEQ CARE VISIT () [EXCLS:PATIENTS WHO ARE SEEN FOR A CONDITION UNREL TO / CARE (EG,AN UP RESPIR INFECT;PATIENTS SEEN FOR CONSULTATION ONLY,NOT FOR CONT CARE)] 3 [facility] NON-STRESS TEST 3 [facility] SUBSEQ CARE VISIT () [EXCLS:PATIENTS WHO ARE SEEN FOR A CONDITION UNREL TO / CARE (EG,AN UP RESPIR INFECT;PATIENTS SEEN FOR CONSULTATION ONLY,NOT FOR CONT CARE)] 2 [facility] INITIAL CARE VISIT (REPORT AT 1ST ENCOUN W HEALTH MACHINE STRAW HAT PRESSER PROVIDING OBSTETRIC CARE. REPORT ALSO DATE OF VISIT &,IN A SEPARATE FIELD,THE DATE OF THE LAST MENSTRUAL PERIOD) 2 [facility] EDUCATION &TRAINING, PATIENT SELF-MGT QUALIFIED, NONPHYSICIAN HEALTH MACHINE STRAW HAT PRESSER USING STANDARDIZED CURRICULUM, [id number] W THE PATIENT (COULD INCL CAREGIVER/FAMILY) EA 30 MIN; 5-8 PATIENTS 2 [facility] Levonorgestrel-rele asing intrauterine contraceptive system, 52 mg 3 OMAR HANSEN [facility] Gynecologic Services Intrauterine Device (IUD) Insertion Gynecologic Services Intrauterine Device (IUD) Insertion 63501 3 OMAR HANSEN [facility] Etonogestrel (contraceptive) implant system, including implant and supplies 3 OMAR HANSEN Implantable Contraceptive Capsules Insertion 3 OMAR HANSEN [facility] Obstetrical Services Care Visit Obstetrical Services Care Visit 0503F 3 OMAR HANSEN Influenza Split Virus Vaccine 0.5mL Dosage Intramuscular 3 FERNANDO LANTIGUA Influenza Split Virus; Series #: 1; .5 mL; IM; Left Arm; Mfg: Sanofi Pasteur; Lot: [id number]; VIS given (Dali: 01/26/10). [facility] Tdap Vaccine Tdap Vaccine 80489 3 FERNANDO LANTIGUA Tdap; Series #: 1; .5 mL; IM; Left Arm; Mfg: iMedX; Lot: [id number]; VIS given (Dali: 07/12/11). [facility] Immunization Administration By Injection, One Vaccine Immunization Administration By Injection, One Vaccine 93455 3 FERNANDO LANTIGUA [facility] Immunization Administration By Injection, Each Additional Vaccine Immunization Administration By Injection, Each Additional Vaccine 41411 3 FERNANDO LANTIGUA [facility] Non-Stre Test (___ 0,2) Non-Stress Test (___ 0,2) 98421 3 OMAR HANSEN [facility] OB Services Antepartum Care Only Subsequent Single Visit OB Services Antepartum Care Only Subsequent Single Visit 0502F 3 YOLANDA AZUL [facility] OB Services Antepartum Care Only Subsequent Single Visit OB Services Antepartum Care Only Subsequent Single Visit 0502F 3 CROW ANTONIO [facility] OB Services Antepartum Care Only Subsequent Single Visit OB Services Antepartum Care Only Subsequent Single Visit 0502F 3 CROW ANTONIO [facility] OB Services Antepartum Care Only Subsequent Single Visit OB Services Antepartum Care Only Subsequent Single Visit 0502F 3 CROW ANTONIO Non-Stre Test (___ 0,2) Non-Stress Test (___ 0,2) 41243 3 YE FRIAS [facility] OB Services Antepartum Care Only Subsequent Single Visit OB Services Antepartum Care Only Subsequent Single Visit 0502F 2 CROW ANTONIO OB Services Antepartum Care Only First Visit, With Report OB Services Antepartum Care Only First Visit, With Report 0500F 2 HARPER FREEMAN [facility] Patient Counseling Medical Management [facility] [employer] Patients Patient Counseling Medical Management [facility] [employer] Patients 71428 2 SATYA AGUIRRE [facility] Social History Combined list of available smoking, tobacco, and other social history from Department of Defense and Veterans Affairs facilities. Social History Type Response Date Comment [facility] e This section is an empty social history section. DoD
--- OUTSIDE RECORDS SUMMARY | 2023-10-09 22:25 | XMS_ITS | Referral Summary ---
Author Name Unknown Organization [place] [facility] Address [facility]ly [facility] [place] [address] Care Team Providers Care Carpet Jack Name Role Phone No Ref-Primary, Physician Primary Care Provider Yulia Bernabe APRN FERMENTOLOGIST Unavailable [phone] Allergies No known active allergies Medications Medication Sig Dispensed Refills Start Date End Date Status Vit-Fe Fumarate-FA ( MULTIVITAMIN PLUS IRON) 27-1 MG TABS Take 1 tablet by mouth daily Active acetaminophen (TYLENOL) 325 MG tabletIndications:S VD (spontaneous vaginal delivery) Take 2 tablets (650 mg) by mouth every 4 hours as needed for mild pain or fever (greater than or equal to 38?? C /100.4?? F (oral) or 38.5?? C/ 101.4?? F (core).) 03/22/2023 Active Additional Information Patient not taking.Reported on 04/06/2023 docusate sodium (COLACE) 100 MG capsuleIndications: (spontaneous vaginal delivery) Take 1 capsule (100 mg) by mouth daily 30 capsule 03/23/2023 Active Additional Information Patient not taking.Reported on 04/06/2023 ibuprofen (ADVIL/MOTRIN) 800 MG tabletIndications:S VD (spontaneous vaginal delivery) Take 1 tablet (800 mg) by mouth every 6 hours as needed for other (cramping) 60 tablet 03/22/2023 Active Additional Information Patient not taking.Reported on 04/06/2023 labetalol (NORMODYNE) 200 MG tabletIndications:P reeclampsia in period Take 1 tablet (200 mg) by mouth every 8 hours 180 tablet 1 03/23/2023 Active labetalol (NORMODYNE) 300 MG tabletIndications:P reeclampsia in period Take 2 tablets (600 mg) by mouth every 8 hours 30 tablet 1 03/25/2023 Active Additional Information Patient not taking.Reported on 04/06/2023 NIFEdipine ER OSMOTIC (ADALAT CC) 30 MG 24 hr tabletIndications:P reeclampsia in period Take 1 tablet (30 mg) by mouth 2 times daily 60 tablet 1 03/25/2023 Active Additional Information Patient not taking.Reported on 04/06/2023 triamcinolone (KENALOG) 0.1 % external creamIndications:At opic dermatitis, unspecified type Apply topically 2 times daily 80 g 1 04/06/2023 Active Active Problems Problem Noted Date Diagnosed Date Preeclampsia, severe 03/25/2023 Indication for care in labor or delivery 023 Noncompliance with treatment 09/22/2015 Polysubstance dependence 09/22/2015 Schizoaffective disorder, bipolar type 6 Suicidal ideation 09/22/2015 Contraception 07/09/2015 Overview: 09/2012: implanon placed ADHD (attention deficit hyperactivity disorder) 09/05/2011 Overview: Patient is followed by YULIA BERNABE for ongoing prescription of stimulants. Due to illegal substance in urine on 11/02/2015 will not receive further stimulants from [place]. Tobacco use disorder 09/05/2011 CARDIOVASCULAR SCREENING; LDL GOAL LESS THAN 160 09/05/2011 Personal history of Methicil ramana resistant Staphylococcus aureus infection 05/18/2010 Finger amputation, no complication Resolved Problems Problem Noted Date Diagnosed Date Resolved Date Mild major depression 09/05/20112014 Immunizations Name Administration Dates Next Due MMR 03/25/2023 TDAP (Adacel,Boostrix) 06/19/2012,06/19/2004 Social History Tobacco Use Types Packs/Day Years Used Date Smoking Tobacco: Every Day Cigarettes Smokeless Tobacco: Never Comments:Vapes daily along w ith cigarettes Alcohol Use Standard Drinks/Week Comments Not Currently 0 (1 standard drink = 0.6 oz pur e alcohol) rarely PHQ-2 Answer Date Recorded PHQ-2 Score 0 06/28/2018 [place] Depression Scale Answer Date Recorded Last EPDS Total Score Not on file 03/23/2023 The thought of harming myself has occurred to me . Never 03/23/2023 Adolescent Education Answer Date Record ed Getting School Help Needed Not on file 03/14 Sex and Gender Information Value Date Recorded Sex Assigned at Not on file Gender Identity Not on file Sexual Orientation Not on file Last Filed Vital Signs Vital Sign Reading Time Taken Comments Blood Pressure 108/68 04/06/2023 12:03 PM CDT Pulse 78 04/06/2023 12:03 PM CDT Temperature 37.1 ??C (98.8 ??F) 04/06/2023 12:03 PM C DT Respiratory Rate 16 03/25/2023 8:13 AM CDT Oxygen Saturation 100% 04/06/2023 12:03 PM CDT Inhaled Oxygen Concentration - - Weight 70.3 kg (155 lb) 04/06/2023 12:03 PM CDT Height 170.2 cm (5' 7) 04/06/2023 12:03 PM CDT Body Mass Index 24.28 04/06/2023 12:03 PM CDT Plan of Treatment Not on file Procedures Procedure Name Priority Date/Time Associated Diagnosis Comments COMPREHENSIVE METABOLIC PANEL Routine 03/24/2023 6:27 AM CDT PAP IMAGED THIN LAYER SCREEN Routine 07/09/2015 12:00 AM ENVIRONMENTAL HEALTH AND SAFETY MANAGER Routine general medical examination at a health care facility from Last 3 Months or Most Recently Relevant to Health Maintenance Results * (ABNORMAL) Comprehensive metabolic panel (03/24/2023 6:27 AM CDT) Sodium 137 135 - 145 mmol/L 03/24/2023 6:54 AM CDT [facility] Comment:Reference intervals for this test were updated on 03/14/2023 to more accurately reflect our healthy population. There may be differences in the flagging of prior results with similar values performed with this method. Interpretation of those prior results can be made in the context of the updated reference intervals. Potassium 4.4 3.4 - 5.3 mmol/L 03/24/2023 6:54 AM CDT [facility] Carbon Dioxide (CO2) 24 22 - 29 mmol/L 03/24/2023 6:54 AM CDT [facility] Anion Gap 9 7 - 15 mmol/L 03/24/2023 6:54 AM CDT [facility] Urea Nitrogen 9.6 6.0 - 20.0 mg/dL 03/24/2023 6:54 AM CDT [facility] Creatinine 0.74 0.51 - 0.95 mg/dL 03/24/2023 6:54 AM CDT [facility] GFR Estimate >90 >60 mL/min/1. 73m2 03/24/2023 6:54 AM CDT [facility] Calcium 9.0 8.6 - 10.0 mg/dL 03/24/2023 6:54 AM CDT [facility] Chloride 104 98 - 107 mmol/L 03/24/2023 6:54 AM CDT [facility] Glucose 71 70 - 99 mg/dL 03/24/2023 6:54 AM CDT [facility] Alkaline Phosphatase 171(H) 35 - 104 U/L 03/24/2023 6:54 AM CDT [facility] AST 22 0 - 45 U/L 03/24/2023 6:54 AM CDT [facility] Comment:Reference intervals for this test were updated on 11/28/2022 to more accurately reflect our healthy population. There may be differences in the flagging of prior results with similar values performed with this method. Interpretation of those prior results can be made in the context of the updated reference intervals. ALT 17 0 - 50 U/L 03/24/2023 6:54 AM CDT [facility] Comment:Reference intervals for this test were updated on 11/28/2022 to more accurately reflect our healthy population. There may be differences in the flagging of prior results with similar values performed with this method. Interpretation of those prior results can be made in the context of the updated reference intervals. Protein Total 5.9(L) 6.4 - 8.3 g/dL 03/24/2023 6:54 AM CDT [facility] Albumin 3.4(L) 3.5 - 5.2 g/dL 03/24/2023 6:54 AM CDT [facility] Bilirubin Total 0.2 <=1.2 mg/dL 03/24/2023 6:54 AM CDT [facility] Blood STRUCTURE OF LEFT UPPER LIMB / Unknown Venipuncture / Unknown 03/24/2023 6:27 AM CDT 03/24/2023 6:34 AM CDT Camelia Rai MD LAB - BLOOD ORDER CONSTANTINE [facility] E Zaid [facility] (1st floor, no room number) [place] [address], [facility] [phone] * PAP IMAGED THIN LAYER SCREEN (07/09/2015 12:00 AM ENVIRONMENTAL HEALTH AND SAFETY MANAGER) PAP ALICIA Barroso Report Patient Name: POWER PEREZ MR#: [id number] Specimen #: [id number] Collected: 07/09/2015 Received: 07/10/2015 Reported: 07/14/2015 14:32 Ordering Phy(s): YULIA BERNABE SPECIMEN/STAIN PROCESS: Pap imaged thin layer prep screening (Surepath, FocalPoint with guided screening) ? Pap-Cyto x 1 SOURCE: Cervical, endocervical Pap imaged thin layer prep screening (Surepath, FocalPoint with guided screening) SPECIMEN ADEQUACY: Satisfactory for evaluation. -Transformation zone component present. CYTOLOGIC INTERPRETATION: Negative for Intraepithelial Lesion or Malignancy Electronically signed out by: Diane Giraldo Processed and screened at [facility] CLINICAL HISTORY: LMP: 07/02/15 Papanicolaou Test Limitations: ??Cervical cytology is a screening test with limited sensitivity; regular screening is critical for cancer prevention; Pap tests are primarily effective for the diagnosis/preventi on of squamous cell carcinoma, not adenocarcinomas or other cancers. TESTING LAB LOCATION: [facility] [address] [place], [place] ??[id number] COLLECTION SITE: Client: ??[facility] Location: [facility] (R) COP[facility] Cytologic material (specimen) 07/09/2015 07/10/2015 11:08 AM ENVIRONMENTAL HEALTH AND SAFETY MANAGER Yulia Bernabe APRN FERMENTOLOGIST LAB - OPTIM E CLINICAL SPECIMEN COPATH from Last 3 Months or Most Recently Relevant to Health Maintenance Advance Directives For more information, please contact: [phone] * Full Code (Latest Code Status on File) Date Activated Date Inactivated Comments 03/23/2023 3:47 PM 03/25/2023 2:19 PM All basic an d advanced life-sustaining interventions are performed as appropriate Question Answer Comments Code status determined by: Discussion with eder cabrera/ legal decision maker * Full Code Date Activated Date Inactivated Comments 03/21/2023 3:42 AM 03/21/2023 11:22 AM All basic a nd advanced life-sustaining interventions are performed as appropriate Question Answer Comments Code status determined by: Discussion with eder cabrera/ legal decision maker Care Teams Carpet Jack Relationship Specialty Start Date End Date No Ref-Primary, Physician PCP - General 11/16/21 Yulia Bernabe APRN FERMENTOLOGIST [id number] [place] [address] Nurse Practitioner 11/16/21
--- OUTSIDE RECORDS SUMMARY | 2023-10-09 22:25 | XMS_ITS | Clinical Summary ---
Author Name Unknown Organization [facility] Address [facility] [place] [address] Care Team Providers Care Nut Roaster Name Role Phone No Ref-Primary, Physician Primary Care Provider Florecita Yuliaterell York APRN [facility] Unavailable [phone] Allergies No known active allergies Medications Medication [...] 11/02/2015 will not receive further stimulants from [facility]. Tobacco use disorder 09/05/2011 CARDIOVASCULAR SCREENING; LDL GOAL LESS THAN 160 09/05/2011 Personal history of Methicil ramana resistant Staphylococcus aureus infection 05/18/2010 Finger amputation, no complication Resolved Problems Problem Noted Date Diagnosed Date Resolved Date Mild major depression 09/05/20112014 Immunizations Name Administration Dates Next Due MMR 03/25/2023 TDAP (Adacel,Boostrix) 06/19/2012,06/19/2004 Family History Medical History Relation Comments Hypertension Mother Alzheimer Disease Paternal Grandmother Relation Status Comments Father Alive Mother Alive Paternal Grandmother Social History Tobacco Use Types Packs/Day Years Used Date Smoking Tobacco: Every Day Cigarettes Smokeless Tobacco: Never Comments:Vapes daily along w ith cigarettes Alcohol Use Standard Drinks/Week Comments Not Currently 0 (1 standard drink = 0.6 oz pur e alcohol) rarely PHQ-2 Answer Date Recorded PHQ-2 Score 0 06/28/2018 [place] Depression Scale Answer Date Recorded Last EPDS [...] 04/06/2023 12:03 PM CDT Plan of Treatment Health Maintenance Due Date Last Done Comments ADVANCE CARE PLANNING 1986 ANNUAL REVIEW OF HM ORDERS 1986 Pneumococcal Vaccine: Pediatrics (0 to 5 Years) and At-Risk Patients (6 to 64 Years) (1 of 2 - PCV) 1992 HIV SCREENING 2001 HEPATITIS C SCREENING 2004 HEPATITIS A IMMUNIZATION (1 of 2 - Risk 2-dose series) 2005 NICOTINE/TOBACCO CESSATION COUNSELING Q 1 YR 07/09/2016 07/09/2015 YEARLY PREVENTIVE VISIT 07/09/2016 07/09/2015 COVID-19 Vaccine ( - season) 2023 INFLUENZA VACCINE (#1) 2023 05/12/1995 PHQ-2 (once per calendar year) 2023 07/09/2015, 03/20/2015, 03/20/2015 PAP 08/30/2025 08/30/2022, 08/17, 07/09/2015 GLUCOSE 03/24/2026 03/24/2023, 10/2022, 03/22/2023, Additional history exists DTAP/TDAP/TD IMMUNIZATION (8 - Td or Tdap) 01/02/2033 01/02/2023, 09/20/2012, 06/19/2012, Additional history exists HEPATITIS B IMMUNIZATION Completed , 02/26/1999, 01/19/1999 HPV IMMUNIZATION Completed 12/11/2008, , 07/11/2006, Additional history exists IPV IMMUNIZATION Aged Out No longer e ligible based on patient's age to complete this topic MENINGITIS IMMUNIZATION Aged Out No l onger eligible based on patient's age to complete this topic RSV MONOCLONAL ANTIBODY Aged Out No l onger eligible based on patient's age to complete this topic Procedures Procedure Name Priority Date/Time Associated Diagnosis Comments COMPREHENSIVE METABOLIC PANEL Routine 03/24/2023 6:27 AM CDT PAP IMAGED THIN LAYER SCREEN Routine 07/09/2015 12:00 AM STOPPER MAKER HELPER Routine general medical examination at a health [...] Rai MD LAB - BLOOD ORDER CONSTANTINE [facility] Acute Care Lab [address] [facility] Lab (1st floor, no room number) [place] [address], [facility] [phone] * PAP IMAGED THIN LAYER SCREEN (07/09/2015 12:00 AM STOPPER MAKER HELPER) PAP NIL COPATH Copath Report Patient Name: POWER PEREZ MR#: [id number] Specimen #: [id number] Collected: 07/09/2015 Received: 07/10/2015 Reported: 07/14/2015 14:32 [...] by: Diane Giraldo Processed and screened at [facility] CLINICAL HISTORY: LMP: 07/02/15 Papanicolaou Test Limitations: ??Cervical cytology is a screening test with limited sensitivity; regular screening is critical for cancer prevention; Pap tests are primarily effective for the diagnosis/preventi on of squamous cell carcinoma, not adenocarcinomas or other cancers. TESTING LAB LOCATION: [address] [place], [place] ??[address] COLLECTION SITE: Client: ??[facility] Location: [facility] (R) COPATH Cytologic material (specimen) 07/09/2015 07/10/2015 11:08 AM STOPPER MAKER HELPER Yulia Bernabe PM TECHNICIAN [facility] LAB - OPTIM E CLINICAL SPECIMEN COPATH from Last 3 Months or Most Recently Relevant to Health Maintenance Advance Directives For more information, please contact: [phone] * Full Code (Latest Code Status on [...] eder cabrera/ legal decision maker Care Teams Nut Roaster Relationship Specialty Start Date End Date No Ref-Primary, Physician PCP - General 11/16/21 Yulia Bernabe APRN [facility] [id number] [place] [address] Nurse Practitioner 11/16/21
[2023-10-09 22:27] LABS: Albumin* 4.7 g/dL (3.3-5.0); Chloride* 109 mmol/L (96-114); Potassium* 3.9 mmol/L (3.6-5.1); Sodium* 141 mmol/L (135-149)
[2023-10-09 22:29] LABS: Creatinine* 0.4 mg/dL (0.5-1.5); Est. Creatinine Clearance* 165.47; Estimated Glomerular Filt Rate 131 ml/min
[2023-10-09 22:30] LABS: Alanine Aminotransferase* 28 U/L (4-35); Alkaline Phosphatase* 71 U/L (40-150); Anion Gap 8 mEq/L (7-15); Aspartate Amino Transferase* 33 U/L (12-35); Bilirubin Total* 0.4 mg/dL (0.1-1.5); Blood Urea Nitrogen* 8 mg/dL (5-24); Calcium* 9.4 mg/dL (8.4-10.6); Carbon Dioxide* 24 mmol/L (20-32); Glucose* 80 mg/dL (60-115)
[2023-10-09 22:31] LABS: Ethanol* 0.14 % (0.01-0.03)
[2023-10-09 22:32] LABS: SARS PCR* Negative SARS-CoV-2 (Negative)
[2023-10-09] MEDS: NICOTINE 2 MG GUM BUCCAL (22:41)
[2023-10-09 23:59] LABS: HCG Qualitative Serum* Negative (Negative)
[2023-10-10] MEDS: NICOTINE 2 MG GUM BUCCAL (02:31)
[2023-10-10] MEDS: OLANZapine 5 MG TAB.RAPDIS PO (02:33)
[2023-10-10 03:29] VITALS: RESP 16
--- NOTE | 2023-10-10 16:18 | PC.SOCIAL ---
Social work referral to assist with locating inpatient mental health bed. Contacted the following facilities to assess. 1. [facility]- Phone call to [facility] at [phone]. [facility] facilities are all full for the day. Informed that travel writer can check back tomorrow after 8:00 am. 2. [facility]- Phone call to [facility] at [phone]. Completed verbal referral and faxed requested documents to [phone]. Received a phone call back from [facility] informing that [facility] unit has accepted pt for admission for today. Pt will go into room 4422. EMS will need to be arranged prior to calling [facility] charge nurse for a nurse to nurse report. [facility] Charge nurse is Ai and phone number is [phone]. [facility] asks that pt be informed that technology will not be allowed on the unit. She can bring technology, however, it will be locked and there will be no access. [facility] can accept pt at any time this evening. Provided update to pt's nurse in emergency department.
[2023-10-10 16:58] VITALS: BP 138/74; PULSE 78; RESP 18; O2SAT 98
== END 2023-10-10 17:00 | disposition other institution (70) ==
PROVIDERS: Emergency Provider Emergency Medicine
DX: F23 Brief psychotic disorder (principal)
CPT/HCPCS: 36415; 80053; 80306; 81001; 82077; 84703; 85025; 87631; 87635; 99284; 99285; A9270

== ENCOUNTER 2023-10-10 16:52 | Outpatient (CLI) | payer OTHER, SELFPAY ==
--- OUTSIDE RECORDS SUMMARY | 2023-10-20 04:32 | XMS_ITS | Continuity of Care Document ---
Author Name [facility] Organization [facility] Care Team Providers Care Engine Hostler Name Role Phone [facility] Unavailable Unavailable Problems Combined list of problems from Department of Defense and Veterans Affairs facilities. It does not include entries that were removed or entered in error. Problem Status Onset Date Problem Type Date of Resolution Comments Source Gynecologic Services Intrauterine Device (IUD) Insertion Active Condition [facility] Implantable Contraceptive Capsules Insertion Inactive Condition [facility] routine history and physical Active Condition [facility] visit for: screening exam depression Inactive Condition [facility] Inquiry And Counseling: Family Planning Active Condition [facility] premature rupture of membranes - antepartum condition or com Inactive Condition [facility] Need For Vaccination Against Influenza Inactive Condition [facility] Need For Vaccination Against Combinations Of Diseases Inactive Condition [facility] Blood Pressure Isolated Elevated Active Condition [facility] Patient Counseling: Inquiry & Counseling Active Condition [facility] Supervision Of Normal Inactive Condition DoD depression Active Condition [facility] nicotine dependence continuous Active Condition [facility] matern tobacco use complic preg//puerper antepart cond Active Condition [facility] Education Active Condition [facility] Ed Initial Visit What To Expect In Normal Active Condition [facility] Ed Initial Visit Development In 1st Trimester Active Condition [facility] Medications Combined list of outpatient medications from Department of Defense and Veterans Affairs facilities.Medications provided include 1) outpatient medications from the last 15 months, and 2) patient-reported medications. Medication Details Route Status Patient Instructions Prescription Expires Prescription Number Last Dispense Date Ordering Provider Order Date Order Qty Source LITHIUM CARBONATE (LITHIUM CARBONATE), 300 MG, TABLET ER, ORAL, [employer] PHARMA, 100 ea. BOTTLE Active [id number] 2023 60 Pharmac y Data Transac tion Service Facilit y OLANZAPINE (OLANZAPINE ), 10 MG, TABLET, ORAL, [employer] PHARMA, 30 ea. BOTTLE Cancele d [id number] : 2023 0 Pharmac y Data Transac tion Service Facilit y Immunizations Combined list of available immunizations from the Department of Defense and Veterans Affairs facilities. Immunization Series Date Given Administered By Site Reaction Lot Number CVX Code Drug Cabin Worker Status Comments Source influenza virus vaccine, split virus (incl. purified surface antigen)-reti red CODE 1 2012 FERNANDO LANTIGUA [id number] Sanofi Pasteur ([facility]) complet ed influenza virus vaccine, split virus (incl. purified surface antigen)- retired CODE DoD tetanus toxoid, reduced diphtheria toxoid, and acellular pertu is vaccine, adsorbed 1 2012 FERNANDO LANTIGUA [id number] [address] [place], [place] [address] complet ed tetanus toxoid, reduced diphtheri [...] Date Status Disposition Source [facility] OUTPATIENT [id number] tob SATYA AGUIRRE 04/03 Released w/o Limitations [facility] OUTPATIENT [id number] tob rosita HARPER MACDONALD 04/11 Released w/o Limitations [facility] OUTPATIENT [id number] ISABEL ROSITA [id number] CROW ANTONIO 05/22 Released w/o Limitations [facility] TELE CONSULT [id number] Notes Entered by: KARLEE YUEN 01 Jun 2012 0926 ------- ------- ------- ------- -- Outpt consult BEATA ABDULLAHI 06/01 Referred for Appointment [facility]( [facility]) [facility] TELE CONSULT [id number] Notes Entered by: KARLEE YUEN 27 Jun 2012 1046 ------- ------- ------- ------- -- Outpt consult BEATA ABDULLAHI 06/27 Referred for Appointment [facility]( [facility]) [facility] OUTPATIENT [id number] Notes Entered by: DARREL WALTON 29 Jun 2012 0157 ------- ------- ------- ------- -- cold/fl u symptom s CARLA VAZQUEZ W 06/29 Released w/o Limitations [facility]( [facility] [place] OUTPATIENT [id number] isabel rosita [id number] CROW ANTONIO 07/18 Released w/o Limitations [facility] OUTPATIENT [id number] ISABEL ROSITA [id number] CROW ANTONIO 08/14 Released w/o Limitations [facility] OUTPATIENT [id number] ISABEL rosita:09/17 CROW ANTONIO 09/04 Released w/o Limitations [facility] OUTPATIENT [id number] ISABEL rosita:09/17 YOLANDA AZUL 09/12 Released w/o Limitations [facility] [place] OUTPATIENT [id number] Notes Entered by: Jeannie SPICER 12 Sep 2012 1217 ------- ------- ------- ------- -- REFERRE D FROM CLINIC FOR HIGH BLOOD PRESSUR E OMAR ARAIZA 09/12 Released w/o Limitations [facility]( [facility] DIRECT TO [facility] FROM OTHER THAN ER OR [facility] [id number] MAGALI QUILES 09/18 DISCHARGED HOME [facility] OUTPATIENT [id number] Notes Entered by: KEVYN ODOM 19 Sep 2012 0049 ------- ------- ------- ------- -- SROM check MAGALI QUILES 09/19 Admitted [facility]( [facility] [place] ) INPATIENT [id number] FERNANDO LANTIGUA 09/20 Inpatient- Still a Patient [facility]( Immuniz ation Clinic ) [facility] OUTPATIENT [id number] 11 weeks post OMAR HANSEN 12/06 Released w/o Limitations [facility] Procedures Combined list of: 1) Procedures from Department of Veterans Affairs facilities going back up to thelast 18 months, not all VA non-surgical procedures are included; 2) All procedures from the Department of Defense facilities. Procedure Procedure Type Code Date Perfomer Comments [facility] e CARE VISIT () 3 [facility] REPAIR OF OTHER CURRENT OBSTETRIC LACERATION 3 [facility] REPAIR OF CURRENT OBSTETRIC LACERATION OF CERVIX 3 [facility] MEDICAL INDUCTION OF LABOR 3 [facility] OTHER MONITORING 3 [facility] INFLUENZA VIRUS VACCINE, TRIVALENT (IIV3), SPLIT VIRUS, 0.5 ML DOSAGE, FOR INTRAMUSCULAR USE 3 [facility] NON-STRESS TEST 3 [facility] SUBSEQ CARE VISIT () [EXCLS:PATIENTS WHO ARE SEEN FOR A CONDITION UNREL TO / CARE (EG,AN UP RESPIR INFECT;PATIENTS SEEN FOR CONSULTATION ONLY,NOT FOR CONT CARE)] 3 [facility] SUBSEQ CARE VISIT () [EXCLS:PATIENTS WHO ARE SEEN FOR A CONDITION UNREL TO / CARE (EG,AN UP RESPIR INFECT;PATIENTS SEEN FOR CONSULTATION ONLY,NOT FOR CONT CARE)] 3 [facility] SUBSEQ CARE VISIT () [EXCLS:PATIENTS WHO ARE SEEN FOR A CONDITION UNREL TO / CARE (EG,AN UP RESPIR INFECT;PATIENTS SEEN FOR CONSULTATION ONLY,NOT FOR CONT CARE)] 3 [facility] SUBSEQ CARE VISIT () [EXCLS:PATIENTS WHO ARE SEEN FOR A CONDITION UNREL TO / CARE (EG,AN UP RESPIR INFECT;PATIENTS SEEN FOR CONSULTATION ONLY,NOT FOR CONT CARE)] 3 [facility] NON-STRESS TEST 3 [facility] SUBSEQ CARE VISIT () [EXCLS:PATIENTS WHO ARE SEEN FOR A CONDITION UNREL TO / CARE (EG,AN UP RESPIR INFECT;PATIENTS SEEN FOR CONSULTATION ONLY,NOT FOR CONT CARE)] 2 [facility] INITIAL CARE VISIT (REPORT AT 1ST ENCOUN W HEALTH PROCESS ARCHITECT PROVIDING OBSTETRIC CARE. REPORT ALSO DATE OF VISIT &,IN A SEPARATE FIELD,THE DATE OF THE LAST MENSTRUAL PERIOD) 2 [facility] EDUCATION &TRAINING, PATIENT SELF-MGT QUALIFIED, NONPHYSICIAN HEALTH PROCESS ARCHITECT USING STANDARDIZED CURRICULUM, NUPA-CA-FCVZ W THE PATIENT (COULD INCL CAREGIVER/FAMILY) EA 30 MIN; 5-8 PATIENTS 2 [facility] Levonorgestrel-rele asing intrauterine contraceptive system, 52 mg 3 OMAR HANSEN [facility] Intrauterine Device (IUD) Insertion Gy[facility] Services Intrauterine Device (IUD) Insertion 87666 3 OMAR HANSEN Etonogestrel (contraceptive) implant system, including implant and supplies 3 OMAR HANSEN Implantable Contraceptive Capsules Insertion 3 OMAR HANSEN Obstetrical Services Care Visit Obstetrical Services Care Visit 0503F 3 OMAR HANSEN [facility] Influenza Split Virus Vaccine 0.5mL Dosage Intramuscular 3 FERNANDO LANTIGUA Influenza Split Virus; Series #: 1; .5 mL; IM; Left Arm; [facility]: Sanofi Pasteur; Lot: [id number]; VIS given (Dali: 01/26/10). [facility] Tdap Vaccine Tdap Vaccine 77055 3 FERNANDO LANTIGUA Tdap; Series #: 1; .5 mL; IM; Left Arm; [facility]: [place]; Lot: [id number]; VIS given (Dali: 07/12/11). [facility] Immunization Administration By Injection, One Vaccine Immunization Administration By Injection, One Vaccine 52207 3 FERNANDO LANTIGUA [facility] Immunization Administration By Injection, Each Additional Vaccine Immunization Administration By Injection, Each Additional Vaccine 24405 3 FERNANDO LANTIGUA [facility] Non-Stre Test (___ 0,2) Non-Stress Test (___ 0,2) 32755 3 OMAR HANSEN [facility] OB Services Antepartum Care Only Subsequent Single Visit OB Services Antepartum Care Only Subsequent Single Visit 0502F 3 YOLANDA AZUL [facility] OB Services Antepartum Care Only Subsequent Single Visit OB Services Antepartum Care Only Subsequent Single Visit 0502F 3 CROW ANTONIO [facility] OB Services Antepartum Care Only Subsequent Single Visit OB Services Antepartum Care Only Subsequent Single Visit 0502F 3 CROW ANTONIO [facility] OB Services Antepartum Care Only Subsequent Single Visit OB Services Antepartum Care Only Subsequent Single Visit 0502F 3 CROW ANTONIO Non-Stre Test (___ 0,2) Non-Stress Test (___ 0,2) 37790 3 YE FRIAS [facility] OB Services Antepartum Care Only Subsequent Single Visit OB Services Antepartum Care Only Subsequent Single Visit 0502F 2 CROW ANTONIO [facility] OB Services Antepartum Care Only First Visit, With Report OB Services Antepartum Care Only First Visit, With Report 0500F 2 HARPER FREEMAN DoD Patient Counseling Medical Management Five To Eight Patients Patient Counseling Medical Management Five To Eight Patients 11135 2 SATYA AGUIRRE DoD Social History Combined list of available smoking, tobacco, and other social history from Department of Defense and Veterans Affairs facilities. Social History Type Response Date Comment Sourc e This section is an empty social history section. DoD
== END 2023-10-10 16:53 | disposition home or self-care (01) ==
LOC: AMB 10-20 04:29
PROVIDERS: Visit Provider Family Medicine
DX: F23 Brief psychotic disorder (principal)
CPT/HCPCS: A0425; A0428

== ENCOUNTER 2023-10-14 16:04 | Outpatient (CLI) | payer OTHER, SELFPAY ==
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
--- OUTSIDE RECORDS SUMMARY | 2023-10-21 02:39 | XMS_ITS ---
Author Name Unknown Organization [facility] Address [address] [place] [address] Care Team Providers Care Bottom Scrubber Name Role Phone Unavailable Unavailable Unavailable Surgery Details Not on file Complications Check Surgery Details section. Procedure Estimated Blood Loss Check Surgery Details section. Procedure Findings Check Surgery Details section. Procedure Specimens Taken Check Surgery Details section.
--- OUTSIDE RECORDS SUMMARY | 2023-10-21 02:39 | XMS_ITS | Encounter Summary ---
Author Name Unknown Organization [facility] Address [address] [place] [address] Care Team Providers Care Shake Sawyer Name Role Phone Unavailable Primary Care Provider Unavailabl e Encounter Details Date Type Department Care Team (Late st Contact Info) Description 10/05/2023 Notes/Orders [place] [facility] [facility] [address] [place] [address] Joyce Hampton, MEDICAL DIRECTOR/HEAD TEAM PHYSICIAN, HAND SALTER [address] [place] [address] Encounter for screening examination for mental health [...] (Late st Contact Info) Description 06/02/2024 Notes/Orders [facility] APPLICATION DEVELOPMENT MANAGER [address] [facility], [address] [address] Britany Serrato RN documented as of this encounter Visit Diagnoses Diagnosis Encounter for screening examination for mental health and behavioral disorders- Primary documented in this encounter
--- OUTSIDE RECORDS SUMMARY | 2023-10-21 02:39 | XMS_ITS | Clinical Summary ---
Author Name Unknown Organization [facility] Address [facility] [place] [address] Care Team Providers Care Loom Checker Name Role Phone No Ref-Primary, Physician Primary [...] 11/02/2015 will not receive further stimulants from [facility]. Tobacco use disorder 09/05/2011 CARDIOVASCULAR SCREENING; LDL [...] Answer Date Recorded PHQ-2 Score 0 06/28/2018 King Depression Scale Answer Date Recorded Last EPDS [...] THIN LAYER SCREEN Routine 07/09/2015 12:00 AM BUSINESS SYSTEMS TECHNICIAN Routine general medical examination at a [facility] care facility from Last 3 Months or Most Recently Relevant to Health Maintenance Results * (ABNORMAL) Comprehensive metabolic panel (03/24/2023 6:27 AM CDT) Pathologist [facility] Sodium 137 135 - 145 mmol/L 03/24/2023 [...] LAB - BLOOD ORDER CONSTANTINE RH LABORATORY [facility] Acute Care Lab [address] [facility] Lab (1st floor, no room number) [place] [address] [phone] * PAP IMAGED THIN LAYER SCREEN (07/09/2015 12:00 AM BUSINESS SYSTEMS TECHNICIAN) PAP ALICIA COPATH Copath Report Patient Name: POWER PEREZ MR#: [id number] Specimen #: [id number] Collected: 07/09/2015 Received: 07/10/2015 Reported: 07/14/2015 14:32 [...] by: Diane Giraldo Processed and screened at [facility] CLINICAL HISTORY: LMP: 07/02/15 Papanicolaou Test Limitations: ??Cervical cytology is a screening test with limited sensitivity; regular screening is critical for cancer prevention; Pap tests are primarily effective for the diagnosis/preventi on of squamous cell carcinoma, not adenocarcinomas or other cancers. TESTING LAB LOCATION: [address] ??[id number] COLLECTION SITE: Client: ??[facility] Location: CRFP (R) COPATH Cytologic material (specimen) 07/09/2015 07/10/2015 11:08 AM BUSINESS SYSTEMS TECHNICIAN Yulia Bernabe SPORTS PHYSICIAN IN CLASSROOM TUTOR LAB - OPTIM E CLINICAL SPECIMEN COPATH from Last 3 Months or Most Recently Relevant to Health Maintenance Advance Directives For more information, please contact: [phone] * Full Code (Latest Code Status on [...] eder cabrera/ legal decision maker Care Teams Loom Checker Relationship Specialty Start Date End Date No Ref-Primary, Physician PCP - General 11/16/21
--- OUTSIDE RECORDS SUMMARY | 2023-10-21 02:39 | XMS_ITS | Encounter Summary ---
Author Name Unknown Organization [facility] Address [address] [place] [address] Care Team Providers Care Manager Diabetes Name Role Phone None Reported, Pcp Primary [...] oz pu re alcohol) occasionally drinks tequilla [facility] Utilities Answer Date Recorded In the [...] living situation today? I have a [facility] place to live 10/10/2023 Sex and Gender Information Value Date Recorded Sex Assigned at Not on file Gender Identity Not on file Sexual Orientation Not on file documented as of this encounter Plan of Treatment Upcoming Encounters Date Type Department Care Team (Late st Contact Info) Description 10/23/2023 11:30 AM CDT Office Visit Department of Family Medicine in [place], [place] [address] [place] [address] Lex Olmos M.D. [address] [place] [address] documented as of this encounter Visit Diagnoses Not on filedocumented in this encounter Additional Health Concerns Infection Onset Date Last Indicated Resolved Time COVID19 Pending 10/14/2023 10/14/2023 10/14/2023 6 :52 PM CDT Assessment Noted Time PHQ-9 Depression Total Score: 10 024 10:00 PM CDT documented as of this encounter Care Teams Manager Diabetes Relationship Specialty Start Date End Date None Reported, Pcp PCP - General Family Medicine 10/14/23 documented as of this encounter
--- OUTSIDE RECORDS SUMMARY | 2023-10-21 02:39 | XMS_ITS | Encounter Summary ---
Author Name Unknown Organization [facility] Address [address] [place] [address] Care Team Providers Care Sales Market Leader Name Role Phone None Reported, Pcp Primary [...] occasionally drinks tequilla, 4 beers per day [employer] Answer Date Recorded In the past 12 months has [employer], gas, oil, or water [employer] threatened to shut off services in your [...] your living situation today? I have a [facility] place to live 10/15/2023 Sex and Gender Information Value Date Recorded Sex Assigned at Not on file Gender Identity Not on file Sexual Orientation Not on file documented as of this encounter Plan of Treatment Upcoming Encounters Date Type Department Care Team (Late st Contact Info) Description 10/23/2023 11:30 AM CDT Office Visit Department of Family Medicine in [place], [place] [address] [place] [address] Lex Olmos M.D. [address] [place] [address] documented as of this encounter Visit Diagnoses Not on filedocumented in this encounter Additional Health Concerns Infection Onset Date Last Indicated Resolved Time COVID19 Pending 10/14/2023 10/14/2023 10/14/2023 6 :52 PM CDT Assessment Noted Time PHQ-9 Depression Total Score: 10 024 10:00 PM CDT documented as of this encounter Care Teams Sales Market Leader Relationship Specialty Start Date End Date None Reported, Pcp PCP - General Family Medicine 10/14/23 documented as of this encounter
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
--- OUTSIDE RECORDS SUMMARY | 2023-10-21 02:39 | XMS_ITS | Clinical Summary ---
Author Name Unknown Organization [facility] Address [address] [place] [address] Care Team Providers Care Station Attendant Name Role Phone Unavailable Primary Care Provider Unavailabl e Source Comments You are receiving this document as you are listed as the primary care provider,follow-up provider, or the patient has been referred to you for consultation.This is in compliance with the Medicare and[facility] EHR Incentive Program,which states Providers who transition their patient to another setting of careor provider of care or refers their patient to another provider of care shouldprovide summary care record for each transition of care or referral. [facility] Allergies No known active allergies Medications Medication [...] contact Roopa Lucero, Healthy Beginnings Specialist, at [phone]. High risk , antepartum 08/30/2022 Antepartum multigravida of advanced maternal age 0308/30/2022 ADHD (attention deficit hyperactivity disorder) 09/05/2011 Overview: Patient is followed by PAMELA ANDERSON for ongoing prescription of stimulants. Due to illegal substance in urine on 11/02/2015 will not receive further stimulants from [facility]. Tobacco use disorder 09/05/2011 Resolved Problems Problem Noted Date Diagnosed Date Resolved Date Finger amputation, no complication, traumatic 08/31/19 23 08/30/2022 Polysubstance dependence 09/22/2015 Schizoaffective disorder, bipolar type 09/22/2015 08/30/2022 Suicidal ideation 09/22/2015 08/30/2022 Encounters Date Type Department Care Team Description 10/05/2023 Notes/Orders [facility] [address] [place] [address] Joyce Hampton, COMMERCIAL LENDER, BLIND HOOKER Encounter for screening examination for mental health [...] (Late st Contact Info) Description 06/02/2024 Notes/Orders [facility] [address] [place] [address], [address] [address] Britany Serrato, RN Health Maintenance [...] PM CDT) Case Report Pap ? Case: [id number] ? Authorizing Provider: ??Brianna Ma, RYAN, ?Collected: ? 08/30/2022 1310 ? CNM ? Ordering Location: ? [facility] ? Received: ?08/30/2022 1325 ? Services-[facility] ? First Screen: ?Anay Khalil ? Specimen: ?Pap Test, Routine, Cervix/Endocervix ? 09/20/2022 2:02 PM CDT [facility] Pap Specimen Adequacy Satisfactory for evaluation, endocervical/reeder sformation zone component present. 09/20/2022 2:02 PM CDT [facility] Pap Interpretation (NILM) Negative for intraepithelial lesion or malignancy. 09/20/2022 2:02 PM CDT [facility] Pap Disclaimer The Pap test is a screening test designed to aid in the detection of cervical cancer and its precursor lesions. It is not a diagnostic procedure and should not be used as the sole means of detecting cervical cancer. Both false-positive and false-negative results may occur. 09/20/2022 2:02 PM CDT [facility] Gross Description The specimen is received in SurePath fixative and properly labeled. 1 Pap-stained SurePath slide is prepared. 09/20/2022 2:02 PM CDT [facility] Embedded Images 2:02 PM CDT [facility] Other Specimen Type ENTIRE ENDOCERVIX / Unknown 08/30/2022 1:10 PM CDT 08/30/2022 1:25 PM CDT Comment:LMP: No LMP recorded (lmp unknown). Patient is . Brianna Ma APRN, CNM LAB PATHOLOGY Performing Organization Address [facility] de Phone Number [facility] [address] * HIV 1/2 Ag/Ab 4th Generation (08/30/2022 12:17 PM CDT) Pathologist [facility] [place] HIV 1/2 Antigen/Antib jc (4th generation) Negative (Non Reactive) Negative (Non Reactive) 08/30/2022 8:51 PM CDT [facility] Comment:HIV-1 p24 Antigen an d HIV-1/HIV-2 Antibody not detected Blood Venipuncture / Unknown 08/30/2022 12:17 PM CDT 08/30/2022 12:17 PM CDT Brianna Ma APRN, CNM LAB_1 Performing Organization Address [facility] de Phone Number [facility] * Hepatitis C Antibody, with Reflex (08/30/2022 12:17 PM CDT) Pathologist [facility] [place] Hepatitis C Antibody Negative (Non Reactive) Negative (Non Reactive) 08/30/2022 8:51 PM CDT [facility] Comment:Antibodies to HCV no t detected. Does not exclude the possiblity of exposure to HCV. Blood Venipuncture / Unknown 08/30/2022 12:17 PM CDT 08/30/2022 12:17 PM CDT Brianna Ma APRN, CNM LAB_1 Performing Organization Address [facility] de Phone Number [facility] [address] from Last 3 Months or Most Recently Relevant to Health Maintenance [address] [place] [address]
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
--- OUTSIDE RECORDS SUMMARY | 2023-10-21 02:39 | XMS_ITS | Continuity of Care Document ---
Author Name [facility] Organization [facility] Care Team Providers Care Licensed Occupational Therapy Assistant Name Role Phone [facility] Unavailable Unavailable Problems Combined list of problems from Department of Defense and Veterans Affairs facilities. It does not include entries that were removed or entered in error. Problem Status Onset Date Problem Type Date of Resolution Comments Source Gynecologic Services Intrauterine Device (IUD) Insertion Active Condition [facility] Implantable Contraceptive Capsules Insertion Inactive Condition [facility] routine history and physical Active Condition [facility] visit for: screening exam depression Inactive Condition [facility] Inquiry And Counseling: Family Planning Active Condition [facility] premature rupture of membranes - antepartum condition or com Inactive Condition [facility] Need For Vaccination Against Influenza Inactive Condition [facility] Need For Vaccination Against Combinations Of Diseases Inactive Condition [facility] Blood Pressure Isolated Elevated Active Condition [facility] Patient Counseling: Inquiry & Counseling Active Condition [facility] Supervision Of Normal Inactive Condition [facility]D depression Active Condition [facility] nicotine dependence continuous Active Condition [facility] matern tobacco use complic preg//puerper antepart cond Active Condition [facility] Education Active Condition [facility] Ed Initial Visit What To Expect In Normal Active Condition [facility] Ed Initial Visit Development In 1st Trimester Active Condition [facility] Medications Combined list of outpatient medications from Department of Defense and Veterans Affairs facilities.Medications provided include 1) outpatient medications from the last 15 months, and 2) patient-reported medications. Medication Details Route Status Patient Instructions Prescription Expires Prescription Number Last Dispense Date Ordering Provider Order Date Order Qty Source LITHIUM CARBONATE (LITHIUM CARBONATE), 300 MG, TABLET ER, ORAL, [employer] PHARMA, 100 ea. BOTTLE Active [id number] 2023 60 Pharmac y Data Transac tion Service Facilit y OLANZAPINE (OLANZAPINE ), 10 MG, TABLET, ORAL, [employer] PHARMA, 30 ea. BOTTLE Cancele d [id number] : 2023 0 Pharmac y Data Transac tion Service Facilit y Immunizations Combined list of available immunizations from the Department of Defense and Veterans Affairs facilities. Immunization Series Date Given Administered By Site Reaction Lot Number CVX Code Drug Artificial Plastic Eye Maker Status Comments Source influenza virus vaccine, split virus (incl. purified surface antigen)-reti red CODE 1 2012 FERNANDO LANTIGUA [id number] Sanofi Pasteur ([facility]) complet ed influenza virus vaccine, split virus (incl. purified surface antigen)- retired CODE DoD tetanus toxoid, reduced diphtheria toxoid, and acellular pertu is vaccine, adsorbed 1 2012 FERNANDO LANTIGUA [id number] [address] [place], [place] [address] complet ed tetanus toxoid, reduced diphtheri [...] Date Status Disposition Source [facility] [place] OUTPATIENT [id number] tob SATYA AGUIRRE 04/03 Released w/o Limitations [facility] [place] [facility] [place] OUTPATIENT [id number] tob rosita HARPER MACDONALD 04/11 Released w/o Limitations [facility] [place] [facility] [place] OUTPATIENT [id number] ISABEL ROSITA [id number] CROW ANTONIO 05/22 Released w/o Limitations [facility] [place] [facility] TELE CONSULT [id number] Notes Entered by: KARLEE YUEN 01 Jun 2012 0926 ------- ------- ------- ------- -- Outpt consult BEATA ABDULLAHI 06/01 Referred for Appointment [facility]( [facility]) [facility] TELE CONSULT [id number] Notes Entered by: KARLEE YUEN 27 Jun 2012 1046 ------- ------- ------- ------- -- Outpt consult BEATA ABDULLAHI 06/27 Referred for Appointment [facility]( [facility]) [facility] [place]) OUTPATIENT [id number] Notes Entered by: DARREL WALTON 29 Jun 2012 0157 ------- ------- ------- ------- -- cold/fl u symptom s CARLA VAZQUEZ W 06/29 Released w/o Limitations [facility]( [facility] [place] [place] OUTPATIENT [id number] isabel rosita [id number] CROW ANTONIO 07/18 Released w/o Limitations [facility] [place] [facility] [place] OUTPATIENT [id number] ISABEL ROSITA [id number] CROW ANTONIO 08/14 Released w/o Limitations [facility] [place] [facility] [place] OUTPATIENT [id number] ISABEL rosita:09/17 CROW ANTONIO 09/04 Released w/o Limitations [facility] [place] [facility] [place] OUTPATIENT [id number] ISABEL rosita:09/17 YOLANDA AZUL 09/12 Released w/o Limitations [facility] [place] [facility] [place]) OUTPATIENT [id number] Notes Entered by: Jeannie SPICER 12 Sep 2012 1217 ------- ------- ------- ------- -- REFERRE D FROM CLINIC FOR HIGH BLOOD PRESSUR E OMAR ARAZIA 09/12 Released w/o Limitations [facility]( [facility] [place] [facility] DIRECT TO [facility] FROM OTHER THAN ER OR [facility] [id number] MAGALI QUILES 09/18 DISCHARGED HOME [facility] [place]) OUTPATIENT [id number] Notes Entered by: KEVYN ODOM 19 Sep 2012 0049 ------- ------- ------- ------- -- SROM check MAGALI QUILES 09/19 Admitted [facility] [place] [facility] ) INPATIENT [id number] FERNANDO LANTIGUA 09/20 Inpatient- Still a Patient [facility]( Immun[facility] ation Clinic ) [facility] [place] OUTPATIENT [id number] 11 weeks post OMAR HANSEN 12/06 Released w/o Limitations [facility] [place] [facility] Procedures Combined list of: 1) Procedures from Department of Veterans Affairs facilities going back up to thelast 18 months, not all VA non-surgical procedures are included; 2) All procedures from the Department of Defense facilities. Procedure Procedure Type Code Date Perfomer Comments [facility] CARE VISIT () 3 [facility] REPAIR OF OTHER CURRENT OBSTETRIC LACERATION 3 [facility] REPAIR OF CURRENT OBSTETRIC LACERATION OF CERVIX 3 [facility] MEDICAL INDUCTION OF LABOR 3 [facility] OTHER MONITORING 3 [facility] INFLUENZA VIRUS VACCINE, TRIVALENT (IIV3), SPLIT VIRUS, 0.5 ML DOSAGE, FOR INTRAMUSCULAR USE 3 [facility] NON-STRESS TEST 3 [facility] SUBSEQ CARE VISIT () [EXCLS:PATIENTS WHO ARE SEEN FOR A CONDITION UNREL TO / CARE (EG,AN UP RESPIR INFECT;PATIENTS SEEN FOR CONSULTATION ONLY,NOT FOR CONT CARE)] 3 [facility] SUBSEQ CARE VISIT () [EXCLS:PATIENTS WHO ARE SEEN FOR A CONDITION UNREL TO / CARE (EG,AN UP RESPIR INFECT;PATIENTS SEEN FOR CONSULTATION ONLY,NOT FOR CONT CARE)] 3 [facility] SUBSEQ CARE VISIT () [EXCLS:PATIENTS WHO ARE SEEN FOR A CONDITION UNREL TO / CARE (EG,AN UP RESPIR INFECT;PATIENTS SEEN FOR CONSULTATION ONLY,NOT FOR CONT CARE)] 3 [facility] SUBSEQ CARE VISIT () [EXCLS:PATIENTS WHO ARE SEEN FOR A CONDITION UNREL TO / CARE (EG,AN UP RESPIR INFECT;PATIENTS SEEN FOR CONSULTATION ONLY,NOT FOR CONT CARE)] 3 [facility] NON-STRESS TEST 3 [facility] SUBSEQ CARE VISIT () [EXCLS:PATIENTS WHO ARE SEEN FOR A CONDITION UNREL TO / CARE (EG,AN UP RESPIR INFECT;PATIENTS SEEN FOR CONSULTATION ONLY,NOT FOR CONT CARE)] 2 [facility] INITIAL CARE VISIT (REPORT AT 1ST ENCOUN W HEALTH OCEANOGRAPHY PROFESSOR PROVIDING OBSTETRIC CARE. REPORT ALSO DATE OF VISIT &,IN A SEPARATE FIELD,THE DATE OF THE LAST MENSTRUAL PERIOD) 2 [facility] EDUCATION &TRAINING, PATIENT SELF-MGT QUALIFIED, NONPHYSICIAN HEALTH OCEANOGRAPHY PROFESSOR USING STANDARDIZED CURRICULUM, [id number] W THE PATIENT (COULD INCL CAREGIVER/FAMILY) EA 30 MIN; 5-8 PATIENTS 2 [facility] Levonorgestrel-rele asing intrauterine contraceptive system, 52 mg 3 OMAR HANSEN Gynecologic Services Intrauterine Device (IUD) Insertion [facility] Intrauterine Device (IUD) Insertion 69871 3 OMAR HANSEN Etonogestrel (contraceptive) implant system, including implant and supplies 3 OMAR HANSEN Implantable Contraceptive Capsules Insertion 3 OMAR HANSEN Obstetrical Services Care Visit Obstetrical Services Care Visit 0503F 3 OMAR HANSEN [facility] Influenza Split Virus Vaccine 0.5mL Dosage Intramuscular 3 FERNANDO LANTIGUA Influenza Split Virus; Series #: 1; .5 mL; IM; Left Arm; [facility]: Sanofi Pasteur; Lot: [id number]; VIS given (Dali: 01/26/10). [facility] Tdap Vaccine Tdap Vaccine 96906 3 FERNANDO LANTIGUA Tdap; Series #: 1; .5 mL; IM; Left Arm; [facility] Spare to Share; Lot: [id number]; VIS given (Dali: 07/12/11). [facility] Immunization Administration By Injection, One Vaccine Immunization Administration By Injection, One Vaccine 40665 3 FERNANDO LANTIGUA [facility] Immunization Administration By Injection, Each Additional Vaccine Immunization Administration By Injection, Each Additional Vaccine 83958 3 FERNANDO LANTIGUA [facility] Non-Stre Test (___ 0,2) Non-Stress Test (___ 0,2) 05214 3 OMAR HANSEN [facility] OB Services Antepartum Care Only Subsequent Single Visit OB Services Antepartum Care Only Subsequent Single Visit 0502F 3 YOLANDA AZUL [facility] OB Services Antepartum Care Only Subsequent Single Visit OB Services Antepartum Care Only Subsequent Single Visit 0502F 3 CROW ANTONIO [facility] OB Services Antepartum Care Only Subsequent Single Visit OB Services Antepartum Care Only Subsequent Single Visit 0502F 3 CROW ANTONIO [facility] OB Services Antepartum Care Only Subsequent Single Visit OB Services Antepartum Care Only Subsequent Single Visit 0502F 3 CROW ANTONIO Non-Stre Test (___ 0,2) Non-Stress Test (___ 0,2) 13657 3 YE FRIAS [facility] OB Services Antepartum Care Only Subsequent Single Visit OB Services Antepartum Care Only Subsequent Single Visit 0502F 2 CROW ANTONIO [facility] OB Services Antepartum Care Only First Visit, With Report OB Services Antepartum Care Only First Visit, With Report 0500F 2 HARPER FREEMAN DoD Patient Counseling Medical Management Five To Eight Patients Patient Counseling Medical Management [employer] To [employer] Patients 51987 2 SATYA AGUIRRE DoD Social History Combined list of available smoking, tobacco, and other social history from Department of Defense and Veterans Affairs facilities. Social History Type Response Date Comment Sourc e This section is an empty social history section. [facility]D
--- OUTSIDE RECORDS SUMMARY | 2023-10-21 02:39 | XMS_ITS | Referral Summary ---
Author Name Unknown Organization [facility] Address [facility] [place] [address] Care Team Providers Care Needle Punch Machine Operator Name Role Phone No Ref-Primary, Physician Primary [...] 11/02/2015 will not receive further stimulants from [facility]. Tobacco use disorder 09/05/2011 CARDIOVASCULAR SCREENING; LDL [...] Answer Date Recorded PHQ-2 Score 0 06/28/2018 [place] Depression Scale Answer Date Recorded Last [...] THIN LAYER SCREEN Routine 07/09/2015 12:00 AM DIRECTOR ADULT Routine general medical examination at a health care facility from Last 3 Months or Most Recently Relevant to Health Maintenance Results * (ABNORMAL) Comprehensive metabolic panel (03/24/2023 6:27 AM CDT) [facility] Sodium 137 135 - 145 mmol/L 03/24/2023 [...] Rai MD LAB - BLOOD ORDER CONSTANTINE [facility] Lab [address] [facility] Lab (1st floor, no room number) [place] [address], [facility] [phone] * PAP IMAGED THIN LAYER SCREEN (07/09/2015 12:00 AM DIRECTOR ADULT) PAP NIL COPATH Copath Report Patient Name: POWER PEREZ MR#: [id number] Specimen #: [id number] Collected: 07/09/2015 Received: 07/10/2015 Reported: 07/14/2015 14:32 [...] by: Diane Giraldo Processed and screened at [facility], [facility] CLINICAL HISTORY: LMP: 07/02/15 Papanicolaou Test Limitations: ??Cervical cytology is a screening test with limited sensitivity; regular screening is critical for cancer prevention; Pap tests are primarily effective for the diagnosis/preventi on of squamous cell carcinoma, not adenocarcinomas or other cancers. TESTING LAB LOCATION: [facility] [address] [place], [place] ??[id number] COLLECTION SITE: Client: ??[facility] Location: [facility] (R) [facility] Cytologic material (specimen) 07/09/2015 07/10/2015 11:08 AM DIRECTOR ADULT Yulia York Florecita VISITOR SERVICES ASSISTANT ELECTRIC DISTRIBUTION CHECKER LAB - OPTIM E CLINICAL SPECIMEN COPATH from Last 3 Months or Most Recently Relevant to Health Maintenance Advance Directives For more information, please contact: [phone] * Full Code (Latest Code Status on [...] eder cabrera/ legal decision maker Care Teams Needle Punch Machine Operator Relationship Specialty Start Date End Date No Ref-Primary, Physician PCP - General 11/16/21
== END 2023-10-14 16:05 | disposition home or self-care (01) ==
LOC: AMB 10-21 02:36
PROVIDERS: Visit Provider Student in an Organized Health Care Education/Training Program
DX: R44.0 Auditory hallucinations (principal)
CPT/HCPCS: A0425; A0427

== ENCOUNTER 2024-12-27 19:31 | Emergency (ER) | payer BC, OTHER, SELFPAY ==
--- OUTSIDE RECORDS SUMMARY | 2024-12-18 07:40 | XMS_ITS | Encounter Summary ---
Author Organization [facility] Address [address] [place] [address] Care Team Providers Care Crime Analyst Name Role Phone Unavailable Primary Care Provider Unavailabl e Reason for Visit * Reason Comments Dental Exam Broken teeth, having a hard time chewing. TMJ pain. Dental Hygiene Encounter Details Date Type Department Care Team (Late st Contact Info) Description 12/18/2024 7:40 AM CDT Office Visit [facility] [place] [address] [place] [id number] Melissa Cole RDH [address] [place], [place] [phone] Dental Exam (Broken teeth, having a hard time chewing. 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 How To Reduce Your Risk Hygiene recall at 3 to 6 months. [place] with fluoride toothpaste twice daily or as recommended. Rinse with fluoride rinse once to twice daily at times other than when brushing. Application of a concentrated fluoride product to the teeth in the clinic to assist in remineralization. Reduce snacking and intake of sugary substances, including beverages such as sodas and sports drinks. Instruction from dental professional on brushing, flossing, and use of oral hygiene products. Dental restorations such as fillings, crowns, or other dental treatment to help manage decay. Risk Level MODERATE Risk Factors Have had a diagnosis of gum disease either with or without past treatment. Intermediate levels of plaque present. How To Reduce Your Risk Return visit with the dental hygienist at 6 month intervals to assess periodontal condition and provide necessary treatment. Risk Level ELEVATED Risk Factors Use of tobacco. How to Reduce Your Risk Ute, we look forward to seeing you at your next visit! Thank you for choosing [facility]. documented in this encounter Progress Notes * Nathaly Encinas DDS - 12/18/2024 7:40 AM CDT NEW PATIENT EXAM NOTE REASON FOR VISIT/CHIEF COMPLAINT: Ute is a 39 y.o. female who presents for Dental Exam (Broken teeth, having a hard time chewing. TMJ pain.) and Dental Hygiene CHART REVIEW: Reviewed with patient: Medical history, Dental history, Problem list, Periodontal charting, and Radiographs. SOFT TISSUE, HEAD AND NECK EXAMINATION: Lips: normal Tongue: normal Palate: normal Throat: normal Floor of the mouth: normal Mucosa: normal Head and neck: normal TMD EVALUATION: Palpation Pain: None Joint Sounds: None Pain with Range of Motion: None OCCLUSAL EXAMINATION: Angle relationship: Right molar: Class I Right cuspid: Class I Left molar: Class I Left cuspid:Class I Maxillary midline: WNL Mandibular midline: WNL Overbite: 3 mm Overjet: 4 mm Crossbite: None Space loss: None Crowding: Not evident Occlusion: All teeth Attrition: Normal Erosion: Absent Overall occlusal relationship: Stable COSMETIC CONCERNS: Patient's Perception: Acceptable Dentist's Perception: Acceptable TREATMENT REVIEW AND FOLLOW-UP: Discussed the Dental findings, Prognosis, and Treatment options with the patient. All questions answered and informed consent was obtained. Planned Recall Interval: Examination: 6 months : Recall prophy: 6 months Next Planned Visit: OP/recall Nathaly Encinas DDS 12/18/2024, 8:22 AM --End of Note-- * Melissa Cole RDH - 12/18/2024 7:40 AM CDT HYGIENE PROPHY NOTE COLLABORATIVE AGREEMENT: The patient consents to have charting, radiographs, and prophylaxis by thedental hygienist performed with the understanding that this care is not a substitute for an examination by a dentist. These activities were performed under a collaborating agreement with Mary Osman DDS (License#: [id number]) PROCEDURAL PAUSE: Patient identity verified: Yes Treatment plan/site verified with the patient: Yes Instruments/equipment verified: Yes Any medication/allergy contraindications: No PRESENTATION: Periodontal Status: Healthy Localized recession Prognosis with treatment and patient compliance (per exam dentist): Present dentition is Favorable Plaque: Light; Sub-gingival and Interproximal (Generalized) Calculus: Light; Sub-gingival and Interproximal (Generalized) Moderate Mandibular anterior (Mandibular anterior) Stain: Light; coffee/tea (localized) Bleeding: Moderate; (Generalized) Gingival tissue: Inflamed (Generalized) ACTIVITIES/EDUCATION: Hand scale, Essential selective polishing, Flossed all contacts, and OHI: daily flossing. NEXT PLANNED HYGIENE VISIT: Hygiene Prophy with exam Melissa Cole RDH 12/18/2024, 8:47 AM CC: Dianelys documented in this encounter Plan of Treatment Upcoming Encounters Date Type Department Care Team (Late st Contact Info) Description 01/02/2025 10:30 AM CDT Appointment [facility] [address] [place] [address] Nathaly Encinas, DDS [address] [address] Scheduled Orders Name Type Priority Associated Diagnoses Order Schedule PROPHYLAXIS-ADULT RECALL Dental Procedures Routine 1 Occurrences starting 12/18/2024 PERIODIC ORAL EVALUATION Dental Procedures Routine 1 Occurrences starting 12/18/2024 TOPICAL FLUORIDE VARNISH Dental Procedures Routine 1 Occurrences starting 12/18/2024 4 4 PORCELAIN CROWN Dental Procedures Routine 1 Occurrences starting 12/18/2024 6 6 ROOT CANAL-ANTERIOR Dental Procedures Routine 1 Occurrences starting 12/18/2024 12 12 SURGICAL EXTRACTION-ERUPTED TOOTH Dental Procedures Routine 1 Occurrences starting 12/18/2024 20 DOL 20 DOL AMALGAM-3 SURFACE Dental Procedures Routine 1 Occurrence s starting 12/18/2024 6 DIFL 6 DIFL COMPOSITE-4+SURFACE ANTERIOR Dental Procedures Routine 1 Occurrences starting 12/18/2024 18 O 18 O AMALGAM-1 SURFACE Dental Procedures Routine 1 Occurrences starting 12/18/2024 4 4 CROWN SEAT Dental Procedures Routine 1 O ccurrences starting 12/18/2024 11 F 11 F COMPOSITE-1 SURFACE ANTERIOR Dental Procedures Routine 1 Occurrences starting 12/18/2024 documented as of this encounter Procedures Procedure Name Priority Date/Time Associated Diagnosis Comments FILM-PANORAMIC Routine 12/18/2024 7:40 AM CDT Generalized gingival recession [id number] Routine 12/18/2024 7: 40 AM CDT Generalized gingival recession PROPHYLAXIS-ADULT RECALL Routine 025 7:40 AM CDT Generalized gingival recession COMPREHENSIVE ORAL EVALUATION Routine 12/18/2024 7:40 AM CDT Generalized gingival recession 4 EXISTING ROOT CANAL TREATMENT Routine 12/18/2024 12:00 AM CDT 29 EXISTING ROOT CANAL TREATMENT Routine 12/18/2024 12:00 AM CDT 29 EXISTING PORCELAIN CROWN Routine 12/18/2024 12:00 AM CDT 30 EXISTING PORCELAIN CROWN Routine 12/18/2024 12:00 AM CDT 8 MIFL EXISTING COMPOSITE FILLING Routine 12/18/2024 12:00 AM CDT 7 DL EXISTING COMPOSITE FILLING Routine 12/18/2024 12:00 AM CDT 5 MODL EXISTING COMPOSITE FILLING Routine 12/18/2024 12:00 AM CDT 4 MOL EXISTING COMPOSITE FILLING Routine 12/18/2024 12:00 AM CDT 9 MIFL EXISTING COMPOSITE FILLING Routine 12/18/2024 12:00 AM CDT 28 B EXISTING COMPOSITE FILLING Routine 12/18/2024 12:00 AM CDT 18 B EXISTING AMALGAM FILLING Routine 12/18/2024 12:00 AM CDT 3 O EXISTING AMALGAM FILLING Routine 12/18/2024 12:00 AM CDT 11 DL EXISTING AMALGAM FILLING Routine 12/18/2024 12:00 AM CDT 13 MOD EXISTING AMALGAM FILLING Routine 12/18/2024 12:00 AM CDT 20 DO EXISTING AMALGAM FILLING Routine 12/18/2024 12:00 AM CDT 19 MOD EXISTING AMALGAM FILLING Routine 12/18/2024 12:00 AM CDT 18 O EXISTING AMALGAM FILLING Routine 12/18/2024 12:00 AM CDT documented in this encounter Visit Diagnoses Diagnosis Retained tooth root- Primary Retained dental root Dental caries into pulp Dental caries extending into pulp Dental caries limited to outer third of dentin Defective dental buddhism Unspecified unsatisfactory buddhism of tooth Fracture of tooth enamel and dentin Generalized gingival recession Gingival recession, generalized documented in this encounter
--- OUTSIDE RECORDS SUMMARY | 2024-12-27 19:32 | XMS_ITS | Continuity of Care Document ---
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 It does not include entries that were removed or entered in error. Problem Status Onset Date Problem Type Date of Resolution Comments Source Gynecologic Services Intrauterine Device (IUD) Insertion Active Condition [facility] Implantable Contraceptive Capsules - Insertion Inactive Condition [facility] NORMAL ROUTINE HISTORY AND PHYSICAL - Active Condition [facility] visit for: screening exam depression Inactive Condition [facility] Inquiry And Counseling: Family Planning Active Condition [facility] PREMATURE RUPTURE OF MEMBRANES - ANTEPARTUM CONDITION OR COM Inactive Condition [facility] Vaccines Prophylactic Need Against Influenza Inactive Condition [facility] Vaccines Prophylactic Need Against Combinations Of Diseases Inactive Condition [facility] Blood Pressure Isolated Elevated Active Condition [facility] Patient Counseling: Inquiry & Counseling Active Condition [facility] Supervision Of Normal Inactive Condition [facility] DEPRESSION Active Condition [facility] NICOTINE DEPENDENCE - CONTINUOUS Active Condition [facility] MATERN TOBACCO USE COMPLIC PREG//PUERPER ANTEPART COND Active Condition [facility] Education Active Condition [facility] Ed Initial Visit What To Expect In Normal Active Condition [facility] Ed Initial Visit Development In 1st Trimester Active Condition [facility] Medications Combined list of outpatient medications from Department of Defense and Veterans Affairs facilities.Medications provided include 1) outpatient medications from the last 15 months, and 2) patient-reported medications. Medication Details Route Status Patient Instructions Prescription Expires Prescription Number Last Dispense Date Ordering Provider Order Date Order Qty Source DIVALPROEX SODIUM ER (DIVALPROEX SODIUM), 250 MG, TAB ER 24H, ORAL, '[facility], 100 ea. BOTTLE Active [id number] 4 2023 90 Pharmac y Data Transac tion Service Facilit y DIVALPROEX SODIUM ER (DIVALPROEX SODIUM), 250 MG, TAB ER 24H, ORAL, '[facility], 100 ea. BOTTLE Active [id number] 4 2023 90 Pharmac y Data Transac tion Service Facilit y HYDROXYZINE HCL (hydroxyzin e HCl), 25 MG, TABLET, ORAL, RISING PHARM, 500 ea. BOTTLE Active [id number] 4 2023 90 Pharmac y Data Transac tion Service Facilit y HYDROXYZINE HCL (hydroxyzin e HCl), 25 MG, TABLET, ORAL, RISING PHARM, 500 ea. BOTTLE Active [id number] 4 2023 90 Pharmac y Data Transac tion Service Facilit y HYDROXYZINE HCL (hydroxyzin e HCl), 25 MG, TABLET, ORAL, RISING PHARM, 500 ea. BOTTLE Active [id number] 4 2023 60 Pharmac y Data Transac tion Service Facilit y LITHIUM CARBONATE (LITHIUM CARBONATE), 300 MG, TABLET ER, ORAL, [employer] PHARMA, 100 ea. BOTTLE Active [id number] 4 2023 60 Pharmac y Data Transac tion Service Facilit y OLANZAPINE (OLANZAPINE ), 10 MG, TABLET, ORAL, [employer], 30 ea. BOTTLE Cancele d [id number] : 2023 0 Pharmac y Data Transac tion Service Facilit y OLANZAPINE (OLANZAPINE ), 15 MG, TABLET, ORAL, [employer], 30 ea. BOTTLE Active [id number] 4 2023 60 Pharmac y Data Transac tion Service Facilit y OLANZAPINE (OLANZAPINE ), 15 MG, TABLET, ORAL, [employer]ARMA, 30 ea. BOTTLE Active [id number] 4 2023 60 Pharmac y Data Transac tion Service Facilit y PRAZOSIN HCL (prazosin HCl), 1 MG, CAPSULE, ORAL, [employer]OB[employer] PHARM, 100 ea. BOTTLE Active [id number] 4 2023 30 Pharmac y Data Transac tion Service Facilit y PRAZOSIN HCL (prazosin HCl), 1 MG, CAPSULE, ORAL, NOVITIUM/AN I PH, 100 ea. BOTTLE Active [id number] 4 2023 30 Pharmac y Data Transac tion Service Facilit y Immunizations Combined list of available immunizations from the Department of Defense and Veterans Affairs facilities. Immunization Series Date Given Administered By Site Reaction Lot Number CVX Code Drug Rust Proofer Status Comments Source influenza virus vaccine, split virus (incl. purified surface antigen)-[facility] red CODE 1 2012 FERNANDO LANTIGUA [id number] San[employer]i P[employer] ([facility]) complet ed influenza virus vaccine, split virus (incl. purified surface antigen)- retired CODE DoD tetanus toxoid, reduced diphtheria toxoid, and acellular pertu is vaccine, adsorbed 1 2012 FERNANDO LANTIGUA [id number] [address] [place] [address] ([facility]) complet ed tetanus toxoid, reduced diphtheri a toxoid, and acellular pertussis vaccine, adsorbed DoD Encounters Combined list of: 1) Encounters from Department of Veterans Affairs facilities going backup to the last 18 months, not all VA inpatient encounters are included; 2) Encounters from the Department of Defense facilities going backup to 280 months. Location Location Details Encounter Type Encounter Number Reason For Visit Attending Provider ADM Date DC Date Status Disposition Source [facility] OUTPATIENT [id number] SATYA Corado 04/03 Released w/o Limitations [facility] [place] [facility] OUTPATIENT [id number] tob rosita HARPER MACDONALD 04/11 Released w/o Limitations [facility] [place] [facility] [place] OUTPATIENT [id number] ISABEL ROSITA [id number] CROW ANTONIO 05/22 Released w/o Limitations [facility] TELE CONSULT [id number] Notes Entered by: KARLEE YUEN 01 Jun 2012 0926 ------- ------- ------- ------- -- Outpt consult BEATA ABDULLAHI 06/01 Referred for Appointment [facility] TELE CONSULT [id number] Notes Entered by: KARLEE YUEN 27 Jun 2012 1046 ------- ------- ------- ------- -- Outpt consult BEATA ABDULLAHI 06/27 Referred for Appointment [facility] [place] OUTPATIENT [id number] Notes Entered by: DARREL WALTON 29 Jun 2012 0157 ------- ------- ------- ------- -- cold/fl u symptom s CARLA VAZQUEZ W 06/29 Released w/o Limitations [facility] [place] [facility] [place] OUTPATIENT [id number] isabel rosita [id number] CROW ANTONIO 07/18 Released w/o Limitations [facility] [place] [facility] [place] OUTPATIENT [id number] ISABEL ROSITA [id number] CROW ANTONIO 08/14 Released w/o Limitations [facility] [place] [facility] [place] OUTPATIENT [id number] ISABEL rosita:09/17 CROW ANTONIO 09/04 Released w/o Limitations [facility] [place] [facility] [place] OUTPATIENT [id number] ISABEL rosita:09/17 YOLANDA AZUL 09/12 Released w/o Limitations [facility] [place] [facility] [place] OUTPATIENT [id number] Notes Entered by: Jeannie SPICER 12 Sep 2012 1217 ------- ------- ------- ------- -- REFERRE D FROM CLINIC FOR HIGH BLOOD PRESSUR E MOAR ARAIZA 09/12 Released w/o Limitations [facility] [place] [facility] DIRECT TO [facility] FROM OTHER THAN ER OR [facility] [id number] MAGLAI QUILES 09/18 DISCHARGED HOME [facility] [place] OUTPATIENT [id number] Notes Entered by: KEVYN ODOM 19 Sep 2012 0049 ------- ------- ------- ------- -- SROM check MAGALI QUILES 09/19 Admitted [facility] [place] ) INPATIENT [id number] FERNANDO LANTIGUA 09/20 Inpatient- Still a Patient [facility]( Immuniz ation Clinic ) [facility] [place] OUTPATIENT [id number] 11 weeks post OMAR HANSEN 12/06 Released w/o Limitations [facility] [place] [facility] Procedures Combined list of: 1) Procedures from Department of Veterans Affairs facilities going back up to thelast 18 months, not all VA non-surgical procedures are included; 2) All procedures from the Department of Defense facilities. Procedure Procedure Type Code Date Perfomer Comments Sourc e Levonorgestrel-rele asing intrauterine contraceptive system, 52 mg 3 OMAR HANSEN [facility] Gynecologic Services Intrauterine Device (IUD) Insertion Gynecologic Services Intrauterine Device (IUD) Insertion 40959 3 OMAR HANSEN Etonogestrel (contraceptive) implant system, including implant and supplies 3 OMAR HANSEN Implantable Contraceptive Capsules - Insertion 3 OMAR HANSEN Obstetrical Services Care Visit Obstetrical Services Care Visit 0503F 3 OMAR HANSEN [facility] Influenza Split Virus Vaccine Age 3+ Years Intramuscular 3 FERNANDO LANTIGUA Influenza Split Virus; Series #: 1; .5 mL; IM; Left Arm; Mfg: Sanofi Pasteur; Lot: [id number]; VIS given (Dali: 01/26/10). [facility] Tdap Vaccine Tdap Vaccine 84488 3 FERNANDO LANTIGUA Tdap; Series #: 1; .5 mL; IM; Left Arm; Mfg: [employer]; Lot: [id number]; VIS given (Dali: 07/12/11). [facility] Immunization Administration One Vaccine Immunization Administration One Vaccine 30983 3 FERNANDO LANTIGUA [facility] Immunization Administration Each Additional Vaccine Immunization Administration Each Additional Vaccine 44646 3 FERNANDO LANTIGUA [facility] Non-Stre Test (___ 0,2) Non-Stress Test (___ 0,2) 45109 3 OMAR HANSEN [facility] OB Services Antepartum Care Only Subsequent Single Visit OB Services Antepartum Care Only Subsequent Single Visit 0502F 3 YOLANDA AZUL [facility] OB Services Antepartum Care Only Subsequent Single Visit OB Services Antepartum Care Only Subsequent Single Visit 0502F 3 CROW ANTONIO [facility] OB Services Antepartum Care Only Subsequent Single Visit OB Services Antepartum Care Only Subsequent Single Visit 0502F 3 CROW ANTONIO [facility] OB Services Antepartum Care Only Subsequent Single Visit OB Services Antepartum Care Only Subsequent Single Visit 0502F 3 CROW ANTONIO [facility] Non-Stre Test (___ 0,2) Non-Stress Test (___ 0,2) 76986 3 YE FRIAS [facility] OB Services Antepartum Care Only Subsequent Single Visit OB Services Antepartum Care Only Subsequent Single Visit 0502F 2 CROW ANTONIO [facility] OB Services Antepartum Care Only First Visit, With Report OB Services Antepartum Care Only First Visit, With Report 0500F 2 HARPER FREEMAN [facility] Patient Counseling Medical Management Five To Eight Patients Patient Counseling Medical Management Five To Eight Patients [id number] 2 SATYA AGUIRRE [facility] CARE VISIT () 3 [facility] MEDICAL INDUCTION OF LABOR 3 [facility] OTHER MONITORING 3 [facility] REPAIR OF CURRENT OBSTETRIC LACERATION OF CERVIX 3 [facility] REPAIR OF OTHER CURRENT OBSTETRIC LACERATION 3 [facility] INFLUENZA VIRUS VACCINE, TRIVALENT (IIV3), SPLIT VIRUS, 0.5 ML DOSAGE, FOR INTRAMUSCULAR USE 3 [facility] NON-STRESS TEST 3 [facility] SUBSEQ CARE VISIT () [EXCLS:PATIENTS WHO ARE SEEN FOR A CONDITION UNREL TO / CARE (EG,AN UP RESPIR INFECT;PATIENTS SEEN FOR CONSULTATION ONLY,NOT FOR CONT CARE)] 3 [facility] SUBSEQ CARE VISIT () [EXCLS:PATIENTS WHO ARE SEEN FOR A CONDITION UNREL TO / CARE (EG,AN UP RESPIR INFECT;PATIENTS SEEN FOR CONSULTATION ONLY,NOT FOR CONT CARE)] 3 [facility] SUBSEQ CARE VISIT () [EXCLS:PATIENTS WHO ARE SEEN FOR A CONDITION UNREL TO / CARE (EG,AN UP RESPIR INFECT;PATIENTS SEEN FOR CONSULTATION ONLY,NOT FOR CONT CARE)] 3 [facility] SUBSEQ CARE VISIT () [EXCLS:PATIENTS WHO ARE SEEN FOR A CONDITION UNREL TO / CARE (EG,AN UP RESPIR INFECT;PATIENTS SEEN FOR CONSULTATION ONLY,NOT FOR CONT CARE)] 3 [facility] NON-STRESS TEST 3 [facility] SUBSEQ CARE VISIT () [EXCLS:PATIENTS WHO ARE SEEN FOR A CONDITION UNREL TO / CARE (EG,AN UP RESPIR INFECT;PATIENTS SEEN FOR CONSULTATION ONLY,NOT FOR CONT CARE)] 2 [facility] INITIAL CARE VISIT (REPORT AT 1ST ENCOUN W HEALTH AGRI BUSINESS AGENT PROVIDING OBSTETRIC CARE. REPORT ALSO DATE OF VISIT &,IN A SEPARATE FIELD,THE DATE OF THE LAST MENSTRUAL PERIOD) 2 [facility] EDUCATION &TRAINING, PATIENT SELF-MGT QUALIFIED, NONPHYSICIAN HEALTH AGRI BUSINESS AGENT USING STANDARDIZED CURRICULUM, [id number] W THE PATIENT (COULD INCL CAREGIVER/FAMILY) EA 30 MIN; 5-8 PATIENTS 2 [facility] Social History Combined list of available smoking, tobacco, and other social history from Department of Defense and Veterans Affairs facilities. Social History Type Response Date Comment Sour e This section is an empty social history section. [facility]D
--- OUTSIDE RECORDS SUMMARY | 2024-12-27 19:32 | XMS_ITS | Continuity of Care Document ---
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 It does not include entries that were removed or entered in error. Problem Status Onset Date Problem Type Date of Resolution Comments Source Gynecologic Services Intrauterine Device (IUD) Insertion Active Condition [facility] Implantable Contraceptive Capsules - Insertion Inactive Condition [facility] NORMAL ROUTINE HISTORY AND PHYSICAL - Active Condition [facility] visit for: screening exam depression Inactive Condition DoD Inquiry And Counseling: Family Planning Active Condition DoD PREMATURE RUPTURE OF MEMBRANES - ANTEPARTUM CONDITION OR COM Inactive Condition [facility] Vaccines Prophylactic Need Against Influenza Inactive Condition [facility] Vaccines Prophylactic Need Against Combinations Of Diseases Inactive Condition [facility] Blood Pressure Isolated Elevated Active Condition [facility] Patient Counseling: Inquiry & Counseling Active Condition [facility] Supervision Of Normal Inactive Condition DoD DEPRESSION Active Condition [facility] NICOTINE DEPENDENCE - CONTINUOUS Active Condition [facility] MATERN TOBACCO USE COMPLIC PREG//PUERPER ANTEPART COND Active Condition [facility] Education Active Condition [facility] Ed Initial Visit What To Expect In Normal Active Condition [facility] Ed Initial Visit Development In 1st Trimester Active Condition [facility] Medications Combined list of outpatient medications from [...] ORAL, 'S LAB, 100 ea. BOTTLE Active [id number] 2023 90 Pharmac y Data Transac tion Service Facilit y DIVALPROEX SODIUM ER (DIVALPROEX SODIUM), 250 MG, TAB ER 24H, ORAL, 'S LAB, 100 ea. BOTTLE Active [id number] 2023 90 Pharmac y Data Transac tion Service Facilit y HYDROXYZINE HCL (hydroxyzin e HCl), 25 MG, TABLET, ORAL, [facility], 500 ea. BOTTLE Active [id number] 2023 90 Pharmac y Data Transac tion Service Facilit y HYDROXYZINE HCL (hydroxyzin e HCl), 25 MG, TABLET, ORAL, RISING PHARM, 500 ea. BOTTLE Active [id number] 4 2023 90 Pharmac y Data Transac tion Service Facilit y HYDROXYZINE HCL (hydroxyzin e HCl), 25 MG, TABLET, ORAL, RISING PHARM, 500 ea. BOTTLE Active [id number] 4 2023 60 Pharmac y Data Transac tion Service Facilit y LITHIUM CARBONATE (LITHIUM CARBONATE), 300 MG, TABLET ER, ORAL, [employer] PHARMA, 100 ea. BOTTLE Active [id number] 4 2023 60 Pharmac y Data Transac tion Service Facilit y OLANZAPINE (OLANZAPINE ), 10 MG, TABLET, ORAL, [employer]AR[facility], 30 ea. BOTTLE Cancele d [id number] : 2023 0 Pharmac y Data Transac tion Service Facilit y OLANZAPINE (OLANZAPINE ), 15 MG, TABLET, ORAL, [employer]AR[employer], 30 ea. BOTTLE Active [id number] 2023 60 Pharmac y Data Transac tion Service Facilit y OLANZAPINE (OLANZAPINE ), 15 MG, TABLET, ORAL, [employer]ARMA, 30 ea. BOTTLE Active [id number] 2023 60 Pharmac y Data Transac tion Service Facilit y PRAZOSIN HCL (prazosin HCl), 1 MG, CAPSULE, ORAL, [employer] PHARM, 100 ea. BOTTLE Active [id number] 4 2023 30 Pharmac y Data Transac tion Service Facilit y PRAZOSIN HCL (prazosin HCl), 1 MG, CAPSULE, ORAL, NOVITIUM/AN I PH, 100 ea. BOTTLE Active [id number] 2023 30 Pharmac y Data Transac tion Service Facilit y Immunizations Combined list of available immunizations from the Department of Defense and Veterans Affairs facilities. Immunization Series Date Given Administered By Site Reaction Lot Number CVX Code Drug Supervisor Net Making Status Comments Source influenza virus vaccine, split virus (incl. purified surface antigen)-rust red CODE 1 2012 FERNANDO LANTIGUA [id number] Sanofi Pasteur ([facility]) complet ed influenza virus vaccine, split virus (incl. purified surface antigen)- retired CODE DoD tetanus toxoid, reduced diphtheria toxoid, and acellular pertu is vaccine, adsorbed 1 2012 FERNANDO LANTIGUA [id number] [address] [place] [address] ([facility]) complet ed tetanus toxoid, reduced diphtheri a [...] Date Status Disposition Source [facility] OUTPATIENT [id number] SATYA Corado 04/03 Released w/o Limitations [facility] [place] [facility] OUTPATIENT [id number] tob rosita HARPER MACDONALD 04/11 Released w/o Limitations [facility] [place] [facility] OUTPATIENT [id number] ISABEL ROSITA [id number] CROW ANTONIO 05/22 Released w/o Limitations [facility] [place] [facility] TELE CONSULT [id number] Notes Entered by: KARLEE YUEN 01 Jun 2012 0926 ------- ------- ------- ------- -- Outpt consult BEATA ABDULLAHI 06/01 Referred for Appointment [facility]( [facility] TELE CONSULT [id number] Notes Entered by: KARLEE YUEN 27 Jun 2012 1046 ------- ------- ------- ------- -- Outpt consult BEATA ABDULLAHI 06/27 Referred for Appointment [facility]( [facility]) [facility] [place]) OUTPATIENT [id number] Notes Entered by: DARREL WALTON 29 Jun 2012 0157 ------- ------- ------- ------- -- cold/fl u symptom s CARLA VAZQUEZ W 06/29 Released w/o Limitations [facility]( [facility] [place] OUTPATIENT [id number] isabel rosita [id number] CROW ANTONIO 07/18 Released w/o Limitations [facility] [place] [facility] OUTPATIENT [id number] ISABEL ROSITA [id number] CROW ANTONIO 08/14 Released w/o Limitations [facility] [place] [facility] [place] OUTPATIENT [id number] ISABEL rosita:09/17 CROW ANTONIO 09/04 Released w/o Limitations [facility] [place] [facility] [place] OUTPATIENT [id number] ISABEL rosita:09/17 YOLANDA AZUL 09/12 Released w/o Limitations [facility] [place] [facility] [place]) OUTPATIENT [id number] Notes Entered by: Jeannie SPICER 12 Sep 2012 1217 ------- ------- ------- ------- -- REFERRE D FROM CLINIC FOR HIGH BLOOD PRESSUR E OMAR ARAIZA 09/12 Released w/o Limitations [facility]( [facility] [place]) [facility] DIRECT TO [facility] FROM OTHER THAN ER OR [facility] [id number] MAGALI QUILES 09/18 DISCHARGED HOME [facility] [place]) OUTPATIENT [id number] Notes Entered by: KEVYN ODOM 19 Sep 2012 0049 ------- ------- ------- ------- -- SROM check MAGALI QUILES 09/19 Admitted [facility]( [facility] [place] [facility] n [facility] ) INPATIENT [id number] FERNANDO LANTIGUA 09/20 Inpatient- Still a Patient [facility]( Immuniz ation Clinic ) [facility] [place] OUTPATIENT [id number] 11 weeks post OMAR HANSEN 12/06 Released w/o Limitations [facility] [place] [facility] Procedures Combined list of: 1) Procedures from Department of Veterans Affairs facilities going back up to thelast 18 months, not all VA non-surgical procedures are included; 2) All procedures from the Department of Defense facilities. Procedure Procedure Type Code Date Perfomer Comments Sourc e Levonorgestrel-rele asing intrauterine contraceptive system, 52 mg 3 OMAR HANSEN [facility] Gynecologic Services Intrauterine Device (IUD) Insertion Gynecologic Services Intrauterine Device (IUD) Insertion 61126 3 OMAR HANSEN Etonogestrel (contraceptive) implant system, including implant and supplies 3 OMAR HANSEN Implantable Contraceptive Capsules - Insertion 3 OMAR HANSEN Obstetrical Services Care Visit Obstetrical Services Care Visit 0503F 3 OMAR HANSEN [facility] Influenza Split Virus Vaccine Age 3+ Years Intramuscular 3 FERNANDO LANTIGUA Influenza Split Virus; Series #: 1; .5 mL; IM; Left Arm; Mfg: Sanofi Pasteur; Lot: [id number]; VIS given (Dali: 01/26/10). [facility] Tdap Vaccine Tdap Vaccine 44272 3 FERNANDO LANTIGUA Tdap; Series #: 1; .5 mL; IM; Left Arm; Mfg: [employer]; Lot: [id number]; VIS given (Dali: 07/12/11). DoD Immunization Administration One Vaccine Immunization Administration One Vaccine 35680 3 FERNANDO LANTIGUA [facility] Immunization Administration Each Additional Vaccine Immunization Administration Each Additional Vaccine 99852 3 FERNANDO LANTIGUA [facility] Non-Stre Test (___ 0,2) Non-Stress Test (___ 0,2) 86761 3 OMAR HANSEN [facility] OB Services Antepartum Care Only Subsequent Single Visit OB Services Antepartum Care Only Subsequent Single Visit 0502F 3 YOLANDA AZUL [facility] OB Services Antepartum Care Only Subsequent Single Visit OB Services Antepartum Care Only Subsequent Single Visit 0502F 3 CROW ANOTNIO [facility] OB Services Antepartum Care Only Subsequent Single Visit OB Services Antepartum Care Only Subsequent Single Visit 0502F 3 CROW ANTONIO [facility] OB Services Antepartum Care Only Subsequent Single Visit OB Services Antepartum Care Only Subsequent Single Visit 0502F 3 CROW ANTONIO [facility] Non-Stre Test (___ 0,2) Non-Stress Test (___ 0,2) 20160 3 YE FRIAS [facility] OB Services Antepartum Care Only Subsequent Single Visit OB Services Antepartum Care Only Subsequent Single Visit 0502F 2 CROW ANTONIO [facility] OB Services Antepartum Care Only First Visit, With Report OB Services Antepartum Care Only First Visit, With Report 0500F 2 HARPER FREEMAN [facility] Patient Counseling Medical Management Five To Eight Patients Patient Counseling Medical Management Five To Eight Patients [id number] 2 SATYA AGUIRRE [facility] CARE VISIT () 3 [facility] MEDICAL INDUCTION OF LABOR 3 [facility] OTHER MONITORING 3 [facility] REPAIR OF CURRENT OBSTETRIC LACERATION OF CERVIX 3 [facility] REPAIR OF OTHER CURRENT OBSTETRIC LACERATION 3 [facility] INFLUENZA VIRUS VACCINE, TRIVALENT (IIV3), SPLIT VIRUS, 0.5 ML DOSAGE, FOR INTRAMUSCULAR USE 3 [facility] NON-STRESS TEST 3 [facility] SUBSEQ CARE VISIT () [EXCLS:PATIENTS WHO ARE SEEN FOR A CONDITION UNREL TO / CARE (EG,AN UP RESPIR INFECT;PATIENTS SEEN FOR CONSULTATION ONLY,NOT FOR CONT CARE)] 3 [facility] SUBSEQ CARE VISIT () [EXCLS:PATIENTS WHO ARE SEEN FOR A CONDITION UNREL TO / CARE (EG,AN UP RESPIR INFECT;PATIENTS SEEN FOR CONSULTATION ONLY,NOT FOR CONT CARE)] 3 [facility] SUBSEQ CARE VISIT () [EXCLS:PATIENTS WHO ARE SEEN FOR A CONDITION UNREL TO / CARE (EG,AN UP RESPIR INFECT;PATIENTS SEEN FOR CONSULTATION ONLY,NOT FOR CONT CARE)] 3 [facility] SUBSEQ CARE VISIT () [EXCLS:PATIENTS WHO ARE SEEN FOR A CONDITION UNREL TO / CARE (EG,AN UP RESPIR INFECT;PATIENTS SEEN FOR CONSULTATION ONLY,NOT FOR CONT CARE)] 3 [facility] NON-STRESS TEST 3 [facility] SUBSEQ CARE VISIT () [EXCLS:PATIENTS WHO ARE SEEN FOR A CONDITION UNREL TO / CARE (EG,AN UP RESPIR INFECT;PATIENTS SEEN FOR CONSULTATION ONLY,NOT FOR CONT CARE)] 2 [facility] INITIAL CARE VISIT (REPORT AT 1ST ENCOUN W HEALTH MEDIATOR PROVIDING OBSTETRIC CARE. REPORT ALSO DATE OF VISIT &,IN A SEPARATE FIELD,THE DATE OF THE LAST MENSTRUAL PERIOD) 2 [facility] EDUCATION &TRAINING, PATIENT SELF-MGT QUALIFIED, NONPHYSICIAN HEALTH MEDIATOR USING STANDARDIZED CURRICULUM, [id number] W THE PATIENT (COULD INCL CAREGIVER/FAMILY) EA 30 MIN; 5-8 PATIENTS 2 [facility] Social History Combined list of available smoking, tobacco, and other social history from Department of Defense and Veterans Affairs facilities. Social History Type Response Date Comment Sour e This section is an empty social history section. DoD
--- OUTSIDE RECORDS SUMMARY | 2024-12-27 19:33 | XMS_ITS | Clinical Summary ---
Author Organization [facility] Address [facility] [place] [address] Care Team Providers Care Director Of Recreation Therapy Name Role Phone No Ref-Primary, Physician Primary Care Provider Allergies No known active allergies Medications Vit-Fe Fumarate-FA ( MULTIVITAMIN PLUS IRON) 27-1 MG TABS Take 1 tablet by mouth daily Active acetaminophen (TYLENOL) 325 MG tabletIndication s: (spontaneous vaginal delivery) Take 2 tablets (650 mg) by mouth every 4 hours as needed for mild pain or fever (greater than or equal to 38 C /100.4 F (oral) or 38.5 C/ 101.4 F (core).) 3 Active Additional Information Patient not taking.Reported on 04/06/2023 docusate sodium (COLACE) 100 MG capsuleIndicatio ns: (spontaneous vaginal delivery) Take 1 capsule (100 mg) by mouth daily 30 capsule 3 Active Additional Information Patient not taking.Reported on 04/06/2023 ibuprofen (ADVIL/MOTRIN) 800 MG tabletIndication s: (spontaneous vaginal delivery) Take 1 tablet (800 mg) by mouth every 6 hours as needed for other (cramping) 60 tablet 3 Active Additional Information Patient not taking.Reported on 04/06/2023 labetalol (NORMODYNE) 200 MG tabletIndication s:Preeclampsia in period Take 1 tablet (200 mg) by mouth every 8 hours 180 tablet 1 3 Active labetalol (NORMODYNE) 300 MG tabletIndication s:Preeclampsia in period Take 2 tablets (600 mg) by mouth every 8 hours 30 tablet 1 3 Active Additional Information Patient not taking.Reported on 04/06/2023 NIFEdipine ER OSMOTIC (ADALAT CC) 30 MG 24 hr tabletIndication s:Preeclampsia in period Take 1 tablet (30 mg) by mouth 2 times daily 60 tablet 1 3 Active Additional Information Patient not taking.Reported on 04/06/2023 triamcinolone (KENALOG) 0.1 % external creamIndications :Atopic dermatitis, unspecified type Apply topically 2 times daily 80 g 1 3 Active Active Problems Problem Noted Date Diagnosed Date Preeclampsia, severe 03/25/2023 Indication for care in labor or delivery 023 Noncompliance with treatment 09/22/2015 Polysubstance dependence 09/22/2015 Schizoaffective disorder, bipolar type 6 Suicidal ideation 09/22/2015 Contraception 07/09/2015 Overview (07/09/2015): 09/2012: implanon placed ADHD (attention deficit hyperactivity disorder) 09/05/2011 Overview (11/03/2015): Patient is followed by YULIA BERNABE for ongoing prescription of stimulants. Due to illegal substance in urine on 11/02/2015 will not receive further stimulants from [facility]. Tobacco use disorder 09/05/2011 CARDIOVASCULAR SCREENING; LDL GOAL LESS THAN 160 09/05/2011 Personal history of Methicil ramana resistant Staphylococcus aureus infection 05/18/2010 Finger amputation, no complication Resolved Problems Problem Noted Date Diagnosed Date Resolved Date Mild major depression 09/05/20112014 Immunizations Immunization Administration Dates Next Due MMR (MMRII) 03/25/2023 TDAP (Adacel,Boostrix) 06/19/2012,06/19/2004 Family History Medical [...] Answer Date Recorded PHQ-2 Score 0 06/28/2018 [place] Depression Scale Answer Date Recorded Last EPDS Total Score Not on file 03/23/2023 The thought of harming myself has occurred to me . Never 03/23/2023 Adolescent Education Answer Date Record ed Getting School Help Needed Not on file 03/14 Comments No Sex and Gender Information Value Date Recorded Sex Assigned at Not on file Legal Sex Female 3:27 AM [employer] [employer] [facility] Gender Identity Not on file Sexual Orientation Not on file Last Filed Vital Signs Vital Sign Reading Time Taken Comments Blood Pressure 108/68 04/06/2023 12:03 PM CDT Pulse 78 04/06/2023 12:03 PM CDT Temperature 37.1 C (98.8 F) 04/06/2023 12:03 PM CDT Respiratory Rate 16 03/25/2023 8:13 AM CDT [...] 1986 ANNUAL REVIEW OF HM ORDERS 1986 HIV SCREENING 2001 HEPATITIS C SCREENING 2004 HEPATITIS A VACCINE (1 of 2 - Risk 2-dose series) 2005 PNEUMOCOCCAL VACCINE: PEDIATRICS (0 to 5 YEARS) AND AT-RISK PATIENTS (6 to 49 YEARS) (1 of 2 - PCV) 2005 YEARLY PREVENTIVE VISIT 07/09/2016 07/09/2015 COVID-19 VACCINE ( season) 2024 PHQ-2 (once per calendar year) 2024 07/09/2015, 03/20/2015, 03/20/2015 INFLUENZA VACCINE (#1) 2025 05/12/1995 PAP 08/30/2025 08/30/2022, 08/17, 07/09/2015 DIABETES SCREENING 03/24/2026 03/24/2023, 1 , 03/22/2023, Additional history exists DTAP/TDAP/TD VACCINE (8 - Td or Tdap) 01/02/2033 01/02/2023, 09/20/2012, 06/19/2012, Additional history exists ZOSTER VACCINE (1 of 2) 2036 HEPATITIS B VACCINE Completed 06/13/2000, 02/26/1999, 01/19/1999 HPV VACCINE Completed 12/11/2008, 06/20, 07/11/2006, Additional history exists MENINGITIS VACCINE Aged Out No longer eligible based on patient's age to complete this topic Procedures Procedure Name Priority Date/Time Associated Diagnosis Comments COMPREHENSIVE METABOLIC PANEL Routine 03/24/2023 6:27 AM CDT PAP IMAGED THIN LAYER SCREEN Routine 07/09/2015 12:00 AM [facility] [employer] [facility] Routine general medical examination at a [facility] care facility from Last 3 Months [...] 6:27 AM CDT 03/24/2023 6:34 AM CDT us Camelia Rai MD LAB - BLOOD ORDERABLES Fi nal Result [facility] [address] Lab (1st floor, no room number) [place] [address], [facility] [phone] * PAP IMAGED THIN LAYER SCREEN (07/09/2015 12:00 AM [facility] [employer] [facility]) PAP ALICIA Barroso Report Patient Name: POWER PEREZ MR#: [id number] Specimen #: [id number] Collected: 07/09/2015 Received: 07/10/2015 Reported: 07/14/2015 14:32 Ordering Phy(s): YULIA BERNABE SPECIMEN/STAIN PROCESS: Pap imaged thin layer prep screening (Surepath, FocalPoint with guided screening) Pap-Cyto x 1 SOURCE: Cervical, endocervical Pap imaged thin layer prep screening (Surepath, FocalPoint with guided screening) SPECIMEN ADEQUACY: Satisfactory for evaluation. -Transformation zone component present. CYTOLOGIC INTERPRETATION: Negative for Intraepithelial Lesion or Malignancy Electronically signed out by: Diane Giraldo Processed and screened at [facility], [facility] CLINICAL HISTORY: LMP: 07/02/15 Papanicolaou Test Limitations: Cervical cytology is a screening test with limited sensitivity; regular screening is critical for cancer prevention; Pap tests are primarily effective for the diagnosis/preventi on of squamous cell carcinoma, not adenocarcinomas or other cancers. TESTING LAB LOCATION: [address] [address] COLLECTION SITE: Client: [facility] Location: [facility] (R) COPATH Cytologic material (specimen) 07/09/2015 07/10/2015 11:08 AM [facility] [employer] [facility] uYlia Bernabe ASSISTED LIVING NURSING DIRECTOR RESIDENTIAL CARE OFFICER LAB - [facility] AL SPECIMEN Final Result COPATH from Last 3 Months or Most Recently Relevant to Health Maintenance Insurance [address] [place] [address] [facility] WITH BCBS [address] [place] [address] [facility] WITH BCBS Advance Directives For more information, please contact: [phone] * Full Code (Latest Code Status on File) Date Activated Date Inactivated Comments 03/23/2023 3:47 PM 03/25/2023 2:19 PM All basic an d advanced life-sustaining interventions are performed as appropriate Question Answer Comments Code status determined by: Discussion with patie nt/ legal decision maker * Full Code Date Activated Date Inactivated Comments 03/21/2023 3:42 AM 03/21/2023 11:22 AM All basic a nd advanced life-sustaining interventions are performed as appropriate Question Answer Comments Code status determined by: Discussion with patie nt/ legal decision maker Care Teams Director Of Recreation Therapy Relationship Specialty Start Date End Date No Ref-Primary, Physician PCP - General 11/16/21
--- OUTSIDE RECORDS SUMMARY | 2024-12-27 19:33 | XMS_ITS | Clinical Summary ---
Author Organization [facility] Address [address] [place] [address] Care Team Providers Care Churn Operator Margarine Name Role Phone None Reported, Pcp Primary Care Provider Unavail able Source Comments Patient records contain information from all sites at [facility]. For routine questions regarding patient records, call [phone] during business hours, M-F 8:00 AM - 5:00 PM Central Time. Record requests for emergency care only can be directed to [phone] at any time.[facility] Allergies No known active allergies Medications * This document contains information received from the source organization and may not represent a complete record from that organization. hydrOXYzine (Atarax) 25 mg tablet TAKE 1 TABLET(25 MG) BY MOUTH THREE TIMES DAILY NEEDED FOR ANXIETY OR SLEEP 90 tablet 12/25/2023 Active prazosin (Minipress) 1 mg capsule TAKE 1 CAPSULE(1 MG) BY MOUTH AT BEDTIME 30 capsule 01/30/2024 Active OLANZapine (ZyPREXA) 15 mg tablet TAKE 1 TABLET(15 MG) BY MOUTH TWICE DAILY 60 tablet 01/30/2024 Active divalproex (Depakote ER) 250 mg 24 hr tablet TAKE 3 TABLETS(750 MG) BY MOUTH EVERY EVENING FOR 30 DOSES 90 tablet 01/30/2024 Active Active Problems Problem Noted Date Diagnosed Date Unspecified Psychosis Not Du e To A Substance Or Known Physiological Condition 10/15/2023 Bipolar Disorder Current Epi sode Manic Severe With Psychotic Features 10/12/2023 Paranoid State 10/10/2023 Immunizations Immunization Administration Dates Next Due Influenza Split 09/20/2012 MMR 03/25/2023 Tdap 01/02/2023,09/20/2012,06/19/2012 ,06/19/2004 Family History Medical History Relation Name Comments Bipolar disorder Mother Relation Name Status Comments Mother Social History Tobacco Use Types Packs/Day Years Used Date Smoking Tobacco: Every Day Cigarettes 07 13 Started: 1998 Smokeless Tobacco: Current Tobacco Cessation:Ready to Q uit: No; Counseling Given: Yes Comments:Pt reports using nicotine in several forms. Is surrently using nicotine and is not interested in quitting. Began nicotine use at age 13 Alcohol Use Standard Drinks/Week Comments Yes 12 (1 standard drink = 0.6 oz pure alcohol) occasionally drinks tequilla, 4 beers per day [facility] [employer] Answer Date Recorded In the past 12 months has e [employer], oil, or water [employer] threatened to shut off services in your [...] by your partner or ex-partner? No 10/15/2023 Hunger Vital Sign Answer Date Recorded Within [...] Recor ded PHQ-9 Total Score (max 27) 11 11/01 Housing Stability Answer Date Recorded What is your living situation today? 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 Gender Identity Not on file Sexual Orientation Not on file Last Filed Vital Signs Vital Sign Reading Time Taken Comments Blood Pressure 133/92 11/02/2023 10:46 AM CDT Pulse 92 11/02/2023 10:46 AM CDT Temperature 36.7 C (98.1 F) 11/02/2023 10:46 AM CDT Respiratory Rate 20 11/02/2023 10:46 AM CDT Oxygen Saturation 99% 11/02/2023 10:46 AM CDT Inhaled Oxygen Concentration - - Weight 64.4 kg (142 lb) 11/02/2023 10:46 AM CDT Height 167.6 cm (5' 6) 10/14/2023 11:00 PM CDT Body Mass Index 22.92 10/14/2023 11:00 PM CDT Plan of Treatment Health Maintenance Due Date Last Done Comments HIV Screening 1986 Hepatitis C Screening 1986 Lipid (Cholesterol) Screening 1986 Hepatitis B Vaccines (1 of 3 - 19+ 3-dose series) 2005 Pneumococcal vaccine (0-49 years) (1 of 2 - PCV) 2005 COVID-19 Vaccine ( - 2023- season) 2024 Depression Screening (Annual PHQ-2) 06/19/2024 Glucose Test for Med Monitoring 10/17/2024 10/18/2023, 10/14/2023, 03/24/2023, Additional history exists Tobacco Cessation counseling 11/01/2024 11/02/2023 Influenza Vaccine (#1) 2025 09/20/2012 Cervical/Vaginal Cancer Screening 08/30/2025 08/30/2022 DTaP,Tdap,and Td Vaccines (5 - Td or Tdap) 01/02/2033 01/02/2023, 09/20/2012, 06/19/2012, Additional history exists HPV Vaccines Aged Out No longer eligi ble based on patient's age to complete this topic IPV Vaccines Aged Out No longer eligi ble based on patient's age to complete this topic Procedures Procedure Name Priority Date/Time Associated Diagnosis Comments COMPREHENSIVE METABOLIC PANEL, S/P Timed 10/18/2023 7:41 PM CDT from Last 3 Months or Most Recently Relevant to Health Maintenance Results * (ABNORMAL) Comprehensive Metabolic Panel (10/18/2023 7:41 PM CDT) Potassium, P 4.6 3.6 - 5.2 mmol/L [...] 7:41 PM CDT 10/18/2023 7:45 PM CDT us Aruna Manriquez P.A.-C., P.A. LAB BLOOD ADD-O N Final Result [facility] [address] [place] [address], [facility] [place] [address] [place] [address] from Last 3 Months or Most Recently Relevant to Health Maintenance Advance Directives For more information, please contact: [phone] * Full Code (Latest Code Status on File) Date Activated Date Inactivated Comments 10/15/2023 6:12 AM 10/23/2023 5:23 PM Question Answer Comments Full Code: Not Discussed Due to: Not medically appropriate * Full Code Date Activated Date Inactivated Comments 10/10/2023 6:24 PM 10/13/2023 6:07 PM Question Answer Comments Full Code: Not Discussed Due to: Not medically appropriate Care Teams Churn Operator Margarine Relationship Specialty Start Date End Date None Reported, Pcp PCP - General Family Medicine 10/14/23
--- OUTSIDE RECORDS SUMMARY | 2024-12-27 19:33 | XMS_ITS | Clinical Summary ---
Author Organization [facility] Address [address] [place] [address] Care Team Providers Care Ivory Carver Name Role Phone Unavailable Primary Care Provider Unavailabl e Source Comments You are receiving this document as you are listed as the primary care provider,follow-up provider, or the patient has been referred to you for consultation.This is in compliance with the Medicare and[facility] EHR Incentive Program,which states Providers who transition their patient to another setting of careor provider of care or refers their patient to another provider of care shouldprovide summary care record for each transition of care or referral. [facility] Allergies No known active allergies Medications * This document contains information received from the source organization and may not represent a complete record from that organization. Blood Glucose Monitoring Suppl (BLOOD GLUCOSE METER KIT)Indications: Diet controlled gestational diabetes mellitus (GDM), antepartum Use as directed. 1 Kit 3 Active Additional Information Patient not taking.Reported on 12/18/2024 blood glucose test stripIndications :Diet controlled gestational diabetes mellitus (GDM), antepartum Use 1 Each to test 4 times a day. 100 Strip 11 3 Active Additional Information Patient not taking.Reported on 12/18/2024 lancetsIndicatio ns:Diet controlled gestational diabetes mellitus (GDM), antepartum Use 1 Each to test 4 times a day. 100 Each 11 3 Active Additional Information Patient not taking.Reported on 12/18/2024 NIFEdipine CC (ADALATCC) 30 MG 24 hour release tabletIndication s:Pre-eclampsia, severe, delivered Take 1 Tablet (30 mg) by mouth. 3 Active labetalol (TRANDATE) 300 MG tabletIndication s:Pre-eclampsia, severe, delivered Take 2 Tablets (600 mg) by mouth every 8 hours. 60 Tablet 1 3 Active Additional Information Patient not taking.Reported on 12/18/2024 Active Problems Problem Noted Date Diagnosed Date Macrosomia affecting managem ent of mother in third trimester 02/13/2023 Polyhydramnios in third trimester 02/13/2023 Consultation for sterilization 02/13/2023 Diet controlled gestational diabetes mellitus (GDM), antepartum 01/04/2023 Rubella non-immune status, antepartum 09/02/2022 Careplan: [facility] 09/02/2022 Overview (09/02/2022): This patient is enrolled in the [employer] Program. The program provides patients with support, education, referrals and resources during their . Reason for enrollment: Recovery supports, THC, resources as needed For more information, please contact Roopa Lucero, [facility] Specialist, at [phone]. High risk , antepartum 08/30/2022 Antepartum multigravida of advanced maternal age 0308/30/2022 ADHD (attention deficit hyperactivity disorder) 09/05/2011 Overview (08/30/2022): Patient is followed by [facility]EL[facility] for ongoing prescription of stimulants. Due to illegal substance in urine on 11/02/2015 will not receive further stimulants from [place]. Tobacco use disorder 09/05/2011 Resolved Problems Problem Noted Date Diagnosed Date Resolved Date Finger amputation, no complication, traumatic 08/31/19 23 08/30/2022 Polysubstance dependence 09/22/2015 Schizoaffective disorder, bipolar type 09/22/2015 08/30/2022 Suicidal ideation 09/22/2015 08/30/2022 Encounters Date Type Department Care Team Description 12/18/2024 7:40 AM CDT Office Visit [address] [id number] Melissa Cole [facility] Dental Exam (Broken teeth, having a hard time chewing. TMJ pain.); Dental Hygiene from Last 3 Months Immunizations Immunization Administration Dates Next Due Tdap 01/02/2023,06/19/2012,06/19/2004 Family History Medical History Relation Name Comments Diabetes Father High Cholesterol Father Diabetes Mother High Cholesterol Mother Hypertension Sister Relation Name Status Comments Father Alive Mother Alive Maternal Grandfather Alive Maternal Grandmother Paternal Grandfather Alive Paternal Grandmother Sister Alive Social History Tobacco Use Types Packs/Day Years Used Date Smoking Tobacco: Every Day Cigarettes 1 26.4 Started: 07/20/1998 Tobacco Cessation:Ready to Q uit: [...] on file Legal Sex Female 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 Gender Identity Not on file Sexual Orientation Not on file Occupation Industry Job Start Date Job End Date H: [employer] Not on file Not on file Not on file Last Filed Vital Signs [...] Info) Description 01/02/2025 10:30 AM CDT Appointment [facility] [address] [place] [address] Nathaly Encinas DDS [address] [place] [address] Health Maintenance Due Date Last Done Comments Adult Preventive Visit 2004 HepB Vaccine (1) 2005 Pneumococcal Vaccine (1 of 2 - PCV) 2005 COVID-19 Vaccine (1 - 2023-2 5 season) 2024 Influenza Vaccine (#1) 2025 Cervical Cancer Screening 08/31/20272022, 08/30/2022 DTaP/Tdap/Td Vaccine (4 - Tdap) 01/02/2033 01/02/2023, 06/19/2012, 06/19/2004 Zoster/Shingles Vaccine (1 o f 2) 2036 HIV Screening (Preventive Services) Completed 08/30/2022 Hep C Screening (Preventive Services) Completed 08/30/2022 HPV Vaccine Aged Out No longer eligi ble based on patient's age to complete this topic HepA Vaccine Aged Out No longer eligi ble based on patient's age to complete this topic Hib Vaccine Aged Out No longer eligi ble based on patient's age to complete this topic IPV (Polio) Vaccine Aged Out No longe r eligible based on patient's age to complete this topic MCV4 Vaccine Aged Out No longer eligi ble based on patient's age to complete this topic Meningococcal B Vaccine Aged Out No l onger eligible based on patient's age to complete this topic Procedures Procedure Name Priority Date/Time Associated Diagnosis Comments FILM-PANORAMIC Routine 12/18/2024 7:40 AM CDT Generalized gingival recession [id number] Routine 12/18/2024 7: 40 AM CDT Generalized gingival recession COMPREHENSIVE ORAL EVALUATION Routine 12/18/2024 7:40 AM CDT Generalized gingival recession PROPHYLAXIS-ADULT RECALL Routine 12/18/2024 7:40 AM CDT Generalized gingival recession 8 MIFL EXISTING COMPOSITE FILLING Routine 12/18/2024 [...] AMALGAM FILLING Routine 12/18/2024 12:00 AM CDT 29 EXISTING PORCELAIN CROWN Routine 12/18/2024 12:00 AM CDT 30 EXISTING P[place]CELAIN CROWN Routine 12/18/2024 12:00 AM CDT 9 MIFL EXISTING COMPOSITE FILLING Routine 12/18/2024 12:00 AM CDT 28 B EXISTING COMPOSITE FILLING Routine 12/18/2024 12:00 AM CDT 4 EXISTING ROOT CANAL TREATMENT Routine 12/18/2024 12:00 AM CDT 29 EXISTING ROOT CANAL TREATMENT Routine 12/18/2024 12:00 AM CDT CYTOLOGY (PAP) Routine 08/30/2022 1:10 PM CDT Pap smear for cervical cancer screening HIV 1/2 AG/AB 4TH GEN Routine 08/30/2022 12:17 PM CDT High risk , antepartum HEPATITIS C ANTIBODY, WITH REFLEX (ANTI-HCV) Routine 08/30/2022 12:17 PM CDT High risk , antepartum from Last 3 Months or Most Recently Relevant to Health Maintenance Results * PAP Test (08/30/2022 1:10 PM CDT) Case Report Pap Case: [id number] Authorizing Provider: Brianna Ma APRN, Collected: 08/30/2022 1310 CNM Ordering Location: [facility] Received: 08/30/2022 1325 Services-ARCHIVAL RECORDS CLERK First Screen: Anay Khalil Specimen: Pap Test, Routine, Cervix/Endocervix 09/20/2022 2:02 PM CDT [facility] Pap Specimen Adequacy Satisfactory for evaluation, endocervical/reeder sformation zone component present. 09/20/2022 2:02 PM CDT [facility] Pap Interpretation (NILM) Negative for intraepithelial lesion or malignancy. 09/20/2022 2:02 PM CDT [facility] at 1402 CDT Pap Disclaimer The Pap test is a screening test designed to aid in the detection of cervical cancer and its precursor lesions. It is not a diagnostic procedure and should not be used as the sole means of detecting cervical cancer. Both false-positive and false-negative results may occur. 09/20/2022 2:02 PM CDT [facility] Gross Description The specimen is received in SurePath fixative and properly labeled. 1 Pap-stained SurePath slide is prepared. 09/20/2022 2:02 PM CDT [facility] Embedded Images 2:02 PM CDT [facility] Other Specimen Type ENTIRE ENDOCERVIX / Unknown 08/30/2022 1:10 PM CDT 08/30/2022 1:25 PM CDT Comment:LMP: No LMP recorded (lmp unknown). Patient is . Brianna Ma APRN, CNM LAB PATHOLOGY Final Result [facility] * HIV 1/2 Ag/Ab 4th Generation (08/30/2022 12:17 PM CDT) HIV 1/2 Antigen/Antib jc (4th generation) Negative (Non Reactive) Negative (Non Reactive) 08/30/2022 8:51 PM CDT [facility] Comment:HIV-1 p24 Antigen an d HIV-1/HIV-2 Antibody not detected Blood Venipuncture / Unknown 08/30/2022 12:17 PM CDT 08/30/2022 12:17 PM CDT us Brianna Ma APRN, CNM LAB_1 Final Result [facility] [address] [place], [place] [address] * Hepatitis C Antibody, with Reflex (08/30/2022 12:17 PM CDT) Hepatitis C Antibody Negative (Non Reactive) Negative (Non Reactive) 08/30/2022 8:51 PM CDT [facility] Comment:Antibodies to HCV no t detected. Does not exclude the possiblity of exposure to HCV. Blood Venipuncture / Unknown 08/30/2022 12:17 PM CDT 08/30/2022 12:17 PM CDT us Brianna Ma APRN, CNM LAB_1 Final Result [facility] [address] [place], [place] [address] from Last 3 Months or Most Recently Relevant to Health Maintenance Insurance [address] [place] [address] [facility] [address] [place] [address] [facility]
[2024-12-27 19:52] VITALS: BP 150/101; PULSE 100; RESP 16; TEMP 36.4; O2SAT 96; BMI 22.7
[2024-12-27 20:46] LABS: Hematocrit 41.5 % (33.0-51.0); Hemoglobin* 13.9 gm/dL (12.0-16.0); Immature Granulocytes Abs Auto 0.00 K/uL (0.00-0.30); Immature Granulocytes Pct Auto 0.0 %; Lymphocytes Absolute Auto 2.00 K/uL (0.90-2.90); Mean Corpuscular HGB Conc 34 gm/dL (32-36); Mean Corpuscular Hemoglobin 32 pg (26-34); Mean Corpuscular Volume 95 fL (80-100); RDW Coefficient of Variation % 11.7 % (11.5-15.5); Red Blood Count 4.35 m/uL (4.00-5.20); White Blood Count* 7.61 K/uL (4.50-11.00)
[2024-12-27 20:47] LABS: Slide Review Reflex No
[2024-12-27 21:03] LABS: Albumin* 4.9 g/dL (3.3-5.0); Chloride* 102 mmol/L (96-114); Potassium* 4.3 mmol/L (3.6-5.1); Sodium* 136 mmol/L (135-149)
[2024-12-27 21:05] LABS: Blood Urea Nitrogen* 8 mg/dL (5-24); Creatinine* 0.6 mg/dL (0.5-1.5); Est. Creatinine Clearance* 128.24; Estimated Glomerular Filt Rate 118 ml/min
[2024-12-27 21:06] LABS: Alanine Aminotransferase* 47 U/L (4-35); Alkaline Phosphatase* 68 U/L (40-150); Anion Gap 7 mEq/L (7-15); Aspartate Amino Transferase* 80 U/L (12-35); Bilirubin Direct* 0.2 mg/dL (0.0-0.5); Bilirubin Total* 0.7 mg/dL (0.1-1.5); Calcium* 10.1 mg/dL (8.4-10.6); Carbon Dioxide* 27 mmol/L (20-32); Glucose* 106 mg/dL (60-115); Total Protein* 8.0 g/dL (6.0-8.3)
[2024-12-27 21:11] LABS: Acetaminophen* < 10.0 ug/mL (10.0-30.0); Ethanol* < 0.01 % (0.01-0.03); Salicylate* < 1.0 mg/dL (1.0-10)
--- NOTE | 2024-12-27 21:11 | ED.PSYCH ---
HPI - Psych General Date Seen: 12/27/24 Chief Complaint: Psychiatric Problem/Disorder Stated Complaint: Mental Health problems Time Seen by Provider: 12/27/24 19:48 Source: patient, family, RN notes reviewed and old records reviewed Mode of arrival: ambulatory Limitations: no limitations History of Present Illness HPI Narrative: Patient is a 39-year-old female who presents here voluntary to the emergency room for evaluation of both auditory and visual hallucinations. She tells me this is been for the last 8 days, none of them are command, she denies any suicidal or homicidal ideation then came on her own for to the emergency room with her . Seems like a loving relationship, he is concerned about her. This is happen to her before with a previous hospitalization at [facility] , and then again. She was on Zyprexa along with Atarax at that time unknown dosage. This did help but she felt that made her like a zombie and she went off of it after 3 months. She is willing now she tells me that take medication, specially if it helps her with hallucinations and helps her to sleep. In the past she has used alcohol excessively but her confirms that he does not think this is the issue now as she uses less than 2 oz a day. Does use occasional marijuana with 2 joints a day, smokes 1 pack per day of cigarettes. Has 4 children at home, no access to weapons. Has never been violent, although his times she does verbally escalate. He has always been able to diffuse the situation. Tonight they were looking for medication management, they are not thinking hospitalization. Under comfortable going home. Onset (ago): day(s) Duration: getting worse History of same: Yes Relieving factors: none Exacerbating factors: none Context: not taking psychiatric medications Associated psychiatric symptoms: auditory hallucinations and visual hallucinations Associated symptoms: denies other symptoms Treatments prior to arrival: none Related Data Previous Rx's ?Medication ?Instructions ?Recorded olanzapine 5 mg tablet (Zyprexa) 5 mg PO QHS #20 tabs 12/27/24 Allergies Allergy/AdvReac Type Severity Reaction Status Date / Time No Known Drug Allergies Allergy Verified 10/09/23 20:35 Review of Systems Status of ROS: Reports: 10 or more systems reviewed and unremarkable except as noted in History and below PFSH PFSH Social History Smoking Status: Current every day smoker What tobacco products do you use: cigarettes Do you use any of these nicotine containing products: Vaping Products How often do you have a drink containing alcohol: 2-3 times a week AUDIT-C Alcohol total score: 3 Non-prescribed substance use: marijuana (any form) Exam Narrative: Exam Narrative: On examination in room 1 she is in no apparent distress, answer my questions, no pressured thought pattern, no pressured speech. Affect seems normal. No tremors. Alert to person place and time, sitting in bed, also laying down on her side. With my nurse present, kavitha, pupils equal round reactive to light there is no scleral icterus redness TMs are normal oropharynx normal there is no adenopathy anterior posterior chains, her neck is supple thyroid is normal midline not enlarged and nontender, no meningismus, good air entry bilaterally no wheezing crackles noted heart sounds are normal, abdomen is soft there is no guarding no organomegaly, moves all extremities independently well with absence tremors, no evidence of any cutting behavior, Const: Vital Signs, click to edit/add: Vital Signs - 24 hr 12/27/24 19:52 Temperature 97.6 F Pulse Rate [Pulse Oximeter] 100 Respiratory Rate 16 Blood Pressure [Ri ght Upper Arm] 150/101 H Pulse Oximetry 96 Oxygen Delivery Me thod Room Air Course Course ED Course: I spoke to the psychiatry providerYulissa Rosen NP on-call for daisha, she felt that Zyprexa would be a decent medication 5 mg at nighttime, and follow-up for this. She did think she needed hydroxyzine at this times is not a strong anxiety component. I discussed this with Madhuri and her , as she is not suicidal or homicidal, I do not think we need to pursue inpatient assessment common outpatient would be reasonable. I did not get of overall mental health assessment as she did not want this. I think it would also be reasonable because it is so hard to find people her get her in to see Psychiatry, follow-up primary care, give her a couple options the could continue her prescriptions for a short period of time and help her if she does not really have a primary care person. We had her sign a safety plan, we went over in detail worsening situation when she should come back and she was very happy with this. Vital Signs Vital signs: Initial Vital Signs Temperature 97.6 F 12/27/24 19:52 Temperature Source Temporal Artery Scan 12/27/24 19:52 Pulse Rate 100 12/27/24 19:52 Respiratory Rate 16 12/27/24 19:52 Blood Pressure 150/101 H 12/27/24 19:52 Blood Pressure Mean 117 H 12/27/24 19:52 Blood Pressure Position Sitting 12/27/24 19:52 Pulse Oximetry 96 12/27/24 19:52 Oxygen Delivery Method Room Air 12/27/24 19:52 Vital Signs Temperature 97.6 F 12/27/24 19:52 Pulse Rate 100 12/27/24 19:52 Respiratory Rate 16 12/27/24 19:52 Blood Pressure 150/101 H 12/27/24 19:52 Pulse Oximetry 96 12/27/24 19:52 Oxygen Delivery Method Room Air 12/27/24 19:52 Temperature 97.6 F 12/27/24 19:52 Pulse Rate 100 12/27/24 19:52 Respiratory Rate 16 12/27/24 19:52 Blood Pressure 150/101 H 12/27/24 19:52 Pulse Oximetry 96 12/27/24 19:52 Oxygen Delivery Method Room Air 12/27/24 19:52 Medications Administered Medications: Discontinued Medications Generic Name Dose Route Start Last Admin Trade Name Ofe PRN Reason Stop Dose Admin Olanzapine 5 mg 12/27/24 21:42 12/27/24 21:54 Olanzapine 5 Mg Tab.Rapdis PO 12/27/24 21:43 5 mg ONCE ONE Administration MDM - Psych MDM Narrative Medical decision making narrative: Differential diagnosis of the patient's acute psychosis is mental illness in the form of schizophrenia, bipolar disorder, metabolic derangement such as hyper/hypoglycemia or hypo/hyper natremia, 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 Several items in the differential diagnosis have the potential to be life-threatening such as liver failure, hypo and hypernatremia. Differential Diagnosis Differential diagnosis: Likely chronic schizophrenia, bipolar disorder, depression, drug-induced psychotic disorder and acute anxiety Medical Records Attestation: I reviewed the patient's medical records. Lab Data Attestation: I reviewed the patient's lab results. Labs: Lab Results 12/27/24 12/27/24 Range/Units 20:27 20:28 WBC 7.61 (4.50-11.00) K/uL RBC 4.35 (4.00-5.20) m/uL Hgb 13.9 (12.0-16.0) gm/dL Hct 41.5 (33.0-51.0) % MCV 95 (80-100) fL MCH 32 (26-34) pg MCHC 34 (32-36) gm/dL RDW Coeff of Rigo 11.7 (11.5-15.5) % Plt Count 240 (140-440) K/uL Neut % (Auto) 63.2 (42.0-72.0) % Lymph % (Auto) 26.3 (20-44) % Wright % (Auto) 9.6 (0.0-11.0) % Eos % (Auto) 0.5 (0.0-7.0) % Baso % (Auto) 0.4 (0.0-3.0) % Neut # (Auto) 4.81 (1.7-7.0) K/uL Lymph # (Auto) 2.00 (0.90-2.90) K/uL Wright # (Auto) 0.70 (0.00-0.90) K/UL Eos # (Auto) 0.04 (0.00-0.50) K/uL Baso # (Auto) 0.03 (0.00-0.30) K/uL Abs Immat Gran (auto) 0.00 (0.00-0.30) K/uL Imm/Tot Granulo (auto) 0.0 % Sodium 136 (135-149) mmol/L Potassium 4.3 (3.6-5.1) mmol/L Chloride 102 (96-114) mmol/L Carbon Dioxide 27 (20-32) mmol/L Anion Gap 7 (7-15) mEq/L BUN 8 (5-24) mg/dL Creatinine 0.6 (0.5-1.5) mg/dL Estimated Creat Clear 128.24 Estimated GFR 118 ml/min Glucose 106 (60-115) mg/dL Calcium 10.1 (8.4-10.6) mg/dL Total Bilirubin 0.7 (0.1-1.5) mg/dL Direct Bilirubin 0.2 (0.0-0.5) mg/dL AST 80 H (12-35) U/L ALT 47 H (4-35) U/L Alkaline Phosphatase 68 (40-150) U/L Total Protein 8.0 (6.0-8.3) g/dL Albumin 4.9 (3.3-5.0) g/dL TSH 0.839 (0.270-4.20) uIU/mL Urine HCG, Qual Negative (Negative) Salicylates < 1.0 L (1.0-10) mg/dL Urine Opiates Screen Negative (Negative) Ur Oxycodone Screen Negative (Negative) Urine Methadone Screen Negative (Negative) Acetaminophen < 10.0 (10.0-30.0) ug/mL Ur Barbiturates Screen Negative (Negative) U Tricyclic Antidepress Negative (Negative) Ur Phencyclidine Scrn Negative (Negative) Ur Amphetamines Screen Negative (Negative) U Methamphetamines Scrn Negative (Negative) U Benzodiazepines Scrn Negative (Negative) Urine Cocaine Screen Negative (Negative) U Marijuana (THC) Screen POSITIVE A (Negative) Ur Drug Screen Comment See Note Ethyl Alcohol < 0.01 (0.01-0.03) % ECG Data Attestation: I personally reviewed and interpreted this ECG as follows: ECG interpretation date: 12/27/24 Interpretation: EKG shows normal sinus rhythm, with a ventricular rate of 80, QRS is 80 milliseconds QT is 402 to QTC is 463. Assessment: Normal EKG Discharge Plan Discharge Clinical Impression: Acute psychosis Patient Disposition: Home w/ Parent or Adult Condition: Stable Instructions: Hallucinations (ED), Psychiatric Hallucinations (ED) Additional Instructions: Home rest, as you promise me to come back if there was worsening, take the medication 5 mg at night, would recommend that she follow up with primary care, and get referral to Psychiatry, I have listed to excellent primary care physicians here, that could see and refer you on help you with your medications. Keeping her alcohol intake to less than 2 drinks a day is also suggested, return here if suicidal homicidal a deviation or worsening condition. Or fear for any reason. The remainder of your blood tests including her thyroid, drug screen were all normal, the drug screen only showed a we discussed marijuana. Activity Level: Light activity Discharge Diet: Regular Prescriptions: New olanzapine [Zyprexa] 5 mg tablet 5 mg PO QHS Qty: 20 0RF Follow Up/Referrals: Lobo Wagner MD [Staff Physician, Family Practice] Provider,Not a Local [Primary Care Provider, Family Practice] Ernst Hill MD [Staff Physician, Internal Medicine] Stand Alone Forms: MyHealth Info Instructions
[2024-12-27 21:31] LABS: Ur HCG Qualitative* Negative (Negative)
[2024-12-27 21:38] LABS: Cannabinoid Screen Urine POSITIVE (Negative); Methamphetamines Screen Urine Negative (Negative); Tricyclic Antidepressant Urine Negative (Negative)
== END 2024-12-27 22:35 | disposition home or self-care (01) ==
PROVIDERS: Emergency Provider Family Medicine
DX: F23 Brief psychotic disorder (principal)
CPT/HCPCS: 36415; 80048; 80076; 80143; 80179; 80306; 81025; 82077; 84443; 85025; 93005; 99284; A9270

== ENCOUNTER 2025-01-29 03:00 | Emergency (ER) | payer BC, SELFPAY ==
--- OUTSIDE RECORDS SUMMARY | 2024-12-18 07:40 | XMS_ITS | Encounter Summary ---
Author Organization [facility] Address [address] [place] [address] Care Team Providers Care Acupressure Therapist Name Role Phone Unavailable Primary Care Provider Unavailabl e Reason for Visit * Reason Comments Dental Exam Broken teeth, having a hard time chewing. TMJ pain. Dental Hygiene Encounter Details Date Type Department Care Team (Late st Contact Info) Description 12/18/2024 7:40 AM CDT Office Visit [facility] [place] [address] [place] [phone] Melissa Cole RDH [address] [place], [place] [phone] Dental Exam (Broken teeth, having a hard time chewing. 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 [place] with fluoride toothpaste twice daily or as [...] collaborating agreement with Mary Osman DDS (License#: [id number]) PROCEDURAL PAUSE: Patient identity verified: Yes Treatment [...] documented in this encounter Plan of Treatment Scheduled Orders Name Type Priority Associated Diagnoses [...] Procedures Routine 1 Occurrence s starting 12/18/2024 18 O 18 O AMALGAM-1 SURFACE Dental Procedures Routine 1 Occurrences starting 12/18/2024 4 4 CROWN SEAT Dental Procedures Routine 1 O ccurrences starting 12/18/2024 11 F 11 F COMPOSITE-1 SURFACE ANTERIOR Dental Procedures Routine 1 Occurrences starting 12/18/2024 documented as of this encounter Procedures Procedure Name Priority Date/Time Associated Diagnosis Comments FILM-PANORAMIC Routine 12/18/2024 7:40 AM CDT Generalized gingival recession [id number] Routine 12/18/2024 7: 40 AM CDT Generalized [...] to outer third of dentin Defective dental yarsani Unspecified unsatisfactory yarsani of tooth Fracture of tooth enamel and dentin Generalized gingival recession Gingival recession, generalized documented in this encounter
--- OUTSIDE RECORDS SUMMARY | 2025-01-02 10:30 | XMS_ITS | Encounter Summary ---
Author Organization [facility] Address [address] [place] [address] Care Team Providers Care Milking System Installer Name Role Phone Unavailable Primary Care Provider Unavailabl e Reason for Referral * Dental (Routine) - New Request Specialty Diagnoses / Procedures Referred By Reji t Referred To Contact Diagnoses Dental caries into pulp Nathaly Encinas DDS [address] [place] [address] Phone: tel: fax: Referral ID Status Reason Start Date Expiration Date V isits Requested Visits Authorized [id number] New Request 01/02/2025 07/03/2025 1 1 Scheduling Instructions Your clinician has recommended an appointment for endodontic services within [facility]. You may call one of the clinics below to schedule an appointment. [facility] [phone] [place] [phone] Question Answer Reason for Visit: Endo Therapy - [address] Department: [place] [facility] Appointment Urgency: Non-Urgent Contact preference: Please call patient Tooth/Teeth #6 Treatment Requested Please eval and treat tooth#6 with RCT given decay to pulp thanks Last FMX film 12/18/2024 Encounter Details Date Type Department Care Team (Late st Contact Info) Description 01/02/2025 10:30 AM CDT Office Visit [address] [address] Nathaly Encinas DDS [address] [place] [address] Left without seen Social History Tobacco Use Types Packs/Day Years [...] on file 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 female who presents for No chief complaint on file. Chief Complaint: Seated her and went over chart review she wanted nitrous so I showed the cost estimate and she got up and left dues to payment concern the patient seemed nervious/anxious and annoyed/upset Objective/Assessment Fine Arts Teacher seated patient. When murrell of procedure was reviewed, pt became anxious and upset and walked out of clinic before dentist could come in after stating I have to call my . Dental referral to showroom manager placed for RCT #6. If patient calls back to reschedule, pt can schedule with specialist for RCT. Nathaly Encinas DDS 01/02/2025, 11:26 AM Assisted by Sammie/Melyssa MCMULLEN CC: Dianelys documented in this encounter Plan of Treatment Scheduled Referrals Name Type Priority Associated Diagnoses Orde r Schedule Endodontics Consult Referral Routine Dental caries into pulp Ordered: 01/02/2025 documented as of this encounter Procedures Procedure Name Priority Date/Time Associated Diagnosis Comments NON-URGENT EVALUATION Routine 01/02/2025 10:30 AM CDT Dental caries into pulp Patient left without being seen documented in this encounter Visit Diagnoses Diagnosis Dental caries into pulp- Primary Dental caries extending into pulp Patient left without being seen Surgical or other procedure not carried out because of patient's decision documented in this encounter
--- OUTSIDE RECORDS SUMMARY | 2025-01-28 18:44 | XMS_ITS | Continuity of Care Document ---
Author Name [facility] Organization [facility] Care Team Providers Care Bed Control Specialist Name Role Phone [facility] Unavailable Unavailable Problems Combined list of problems from Department of Defense and Veterans Affairs facilities. It does not include entries that were removed or entered in error. Problem Status Onset Date Problem Type Date of Resolution Comments Source Gynecologic Services Intrauterine Device (IUD) Insertion Active Condition [facility] Implantable Contraceptive Capsules - Insertion Inactive Condition [facility] NORMAL ROUTINE HISTORY AND PHYSICAL - Active Condition [facility] visit for: screening exam depression Inactive Condition DoD Inquiry And Counseling: Family Planning Active Condition DoD PREMATURE RUPTURE OF MEMBRANES - ANTEPARTUM CONDITION OR COM Inactive Condition [facility] Vaccines Prophylactic Need Against Influenza Inactive Condition [facility] Vaccines Prophylactic Need Against Combinations Of Diseases Inactive Condition [facility] Blood Pressure Isolated Elevated Active Condition [facility] Patient Counseling: Inquiry & Counseling Active Condition [facility] Supervision Of Normal Inactive Condition DoD DEPRESSION Active Condition [facility] NICOTINE DEPENDENCE - CONTINUOUS Active Condition [facility] MATERN TOBACCO USE COMPLIC PREG//PUERPER ANTEPART COND Active Condition [facility] Education Active Condition [facility] Ed Initial Visit What To Expect In Normal Active Condition [facility] Ed Initial Visit Development In 1st Trimester Active Condition [facility] Medications Combined list of outpatient [...] ORAL, 'S LAB, 100 ea. BOTTLE Active [id number] 4 2023 90 Pharmac y Data Transac tion Service Facilit y HYDROXYZINE HCL (hydroxyzin e HCl), 25 MG, TABLET, ORAL, RISING PHARM, 500 ea. BOTTLE Active [id number] 4 2023 90 Pharmac y Data Transac tion Service Facilit y HYDROXYZINE HCL (hydroxyzin e HCl), 25 MG, TABLET, ORAL, RISING PHARM, 500 ea. BOTTLE Active [id number] 4 2023 90 Pharmac y Data Transac tion Service Facilit y OLANZAPINE (OLANZAPINE ), 15 MG, TABLET, ORAL, MACLEODS PHARMA, 30 ea. BOTTLE Active [id number] 4 2023 60 Pharmac y Data Transac tion Service Facilit y PRAZOSIN HCL (prazosin HCl), 1 MG, CAPSULE, ORAL, NOVITIUM/AN I PH, 100 ea. BOTTLE Active [id number] 4 2023 30 Pharmac y Data Transac tion Service Facilit y Immunizations Combined list of available immunizations from the Department of Defense and Veterans Affairs facilities. Immunization Series Date Given Administered By Site Reaction Lot Number CVX Code Drug Fiscal Manager Status Comments Source influenza virus vaccine, split virus (incl. purified surface antigen)-reti red CODE 1 2012 FERNANDO LANTIGUA [id number] Sanofi Pasteur (PMC) complet ed influenza virus vaccine, split virus (incl. purified surface antigen)- retired CODE DoD tetanus toxoid, reduced diphtheria toxoid, and acellular pertu is vaccine, adsorbed 1 2012 FERNANDO LANTIGUA [id number] [facility] [employer] (SKB) complet ed tetanus toxoid, [...] ADM Date DC Date Status Disposition Source [facility] [place] OUTPATIENT [id number] tob SATYA AGUIRRE 04/03 Released w/o Limitations [facility] [place] OUTPATIENT [id number] tob rosita HARPER MACDONALD 04/11 Released w/o Limitations [facility]( [facility] [place] [facility](Ob stetric [facility]) OUTPATIENT [id number] ISABEL ROSITA [id number] CROW ANTONIO 05/22 Released w/o Limitations [facility]( [facility] [place] [facility]) TELE CONSULT [id number] Notes Entered by: KARLEE YUEN 01 Jun 2012 0926 ------- ------- ------- ------- -- Outpt consult BEATA ABDULLAHI 06/01 Referred for Appointment [facility]( [facility]) [facility] TELE CONSULT [id number] Notes Entered by: KARLEE YUEN 27 Jun 2012 1046 ------- ------- ------- ------- -- Outpt consult BEATA ABDULLAHI 06/27 Referred for Appointment [facility]( [facility]) [facility] [place] OUTPATIENT [id number] Notes Entered by: DARREL WALTON 29 Jun 2012 0157 ------- ------- ------- ------- -- cold/fl u symptom s CARLA VAZQUEZ 06/29 Released w/o Limitations [facility]( [facility] [place]) [facility] [place] OUTPATIENT [id number] isabel cad [id number] CROW ANTONIO 07/18 Released w/o Limitations [facility]( [facility] [place] [facility]etric [facility]) OUTPATIENT [id number] ISABEL ROSITA [id number] CROW ANTONIO 08/14 Released w/o Limitations [facility]( [facility] [place] [facility] [place] OUTPATIENT [id number] ISABEL rosita:09/17 CROW ANTONIO 09/04 Released w/o Limitations [facility]( [facility] [place] [facility] [place] OUTPATIENT [id number] ISABEL rosita:09/17 YOLANDA AZUL 09/12 Released w/o Limitations [facility]( [facility] [place] [facility] [place]) OUTPATIENT [id number] Notes Entered by: Jeannie SPICER 12 Sep 2012 1217 ------- ------- ------- ------- -- REFERRE Alexx FROM CLINIC FOR HIGH BLOOD PRESSUR OMAR SEALS 09/12 Released w/o Limitations [facility]( [facility] [place]) [facility] FROM OTHER THAN ER OR [facility] [id number] MAGALI QUILES 09/18 [facility] HOME [facility] [place] OUTPATIENT [id number] Notes Entered by: KEVYN ODOM 19 Sep 2012 0049 ------- ------- ------- ------- -- SROM check MAGALI QUILES 09/19 [facility]mitted [facility] [place]) INPATIENT [id number] FERNANDO LANTIGUA 09/20 Inpatient- Still a Patient [facility]( [facility]) [facility] [place] OUTPATIENT [id number] 11 weeks post OMAR HANSEN 12/06 Released w/o Limitations [facility]( [facility] [place]) Procedures Combined list of: 1) Procedures from Department of Veterans Affairs facilities going back up to thelast 18 months, not all VA non-surgical procedures are included; 2) All procedures from the Department of Defense facilities. Procedure Procedure Type Code Date Perfomer Comments [facility] e CARE VISIT () 3 DoD MEDICAL INDUCTION OF LABOR 3 DoD OTHER MONITORING 3 DoD REPAIR OF CURRENT OBSTETRIC LACERATION OF CERVIX 3 DoD REPAIR OF OTHER CURRENT OBSTETRIC LACERATION 3 DoD INFLUENZA VIRUS VACCINE, TRIVALENT (IIV3), SPLIT VIRUS, 0.5 ML DOSAGE, FOR INTRAMUSCULAR USE 3 DoD NON-STRESS TEST 3 DoD SUBSEQ CARE VISIT () [EXCLS:PATIENTS WHO ARE SEEN FOR A CONDITION UNREL TO / CARE (EG,AN UP RESPIR INFECT;PATIENTS SEEN FOR CONSULTATION ONLY,NOT FOR CONT CARE)] 3 [facility] SUBSEQ CARE VISIT () [EXCLS:PATIENTS WHO ARE SEEN FOR A CONDITION UNREL TO / CARE (EG,AN UP RESPIR INFECT;PATIENTS SEEN FOR CONSULTATION ONLY,NOT FOR CONT CARE)] 3 [facility] SUBSEQ CARE VISIT () [EXCLS:PATIENTS WHO ARE SEEN FOR A CONDITION UNREL TO / CARE (EG,AN UP RESPIR INFECT;PATIENTS SEEN FOR CONSULTATION ONLY,NOT FOR CONT CARE)] 3 [facility] SUBSEQ CARE VISIT () [EXCLS:PATIENTS WHO ARE SEEN FOR A CONDITION UNREL TO / CARE (EG,AN UP RESPIR INFECT;PATIENTS SEEN FOR CONSULTATION ONLY,NOT FOR CONT CARE)] 3 [facility] NON-STRESS TEST 3 [facility] SUBSEQ CARE VISIT () [EXCLS:PATIENTS WHO ARE SEEN FOR A CONDITION UNREL TO / CARE (EG,AN UP RESPIR INFECT;PATIENTS SEEN FOR CONSULTATION ONLY,NOT FOR CONT CARE)] 2 [facility] INITIAL CARE VISIT (REPORT AT 1ST ENCOUN W HEALTH GLASS ENGRAVER PROVIDING OBSTETRIC CARE. REPORT ALSO DATE OF VISIT &,IN A SEPARATE FIELD,THE DATE OF THE LAST MENSTRUAL PERIOD) 2 [facility] EDUCATION &TRAINING, PATIENT SELF-MGT QUALIFIED, NONPHYSICIAN HEALTH GLASS ENGRAVER USING STANDARDIZED CURRICULUM, [id number] W THE PATIENT (COULD INCL CAREGIVER/FAMILY) EA 30 MIN; 5-8 PATIENTS 2 [facility] Levonorgestrel-rele asing intrauterine contraceptive system, 52 mg 3 OMAR HANSEN Gynecologic Services Intrauterine Device (IUD) Insertion Gynecologic Services Intrauterine Device (IUD) Insertion 97602 3 OMAR HANSEN Etonogestrel (contraceptive) implant system, including implant and supplies 3 OMAR HANSEN Implantable Contraceptive Capsules - Insertion 3 OMAR HANSEN Obstetrical Services Care Visit Obstetrical Services Care Visit 0503F 3 OMAR HANSEN Influenza Split Virus Vaccine Age 3+ Years Intramuscular 3 FERNANDO LANTIGUA Influenza Split Virus; Series #: 1; .5 mL; IM; Left Arm; Mfg: Sanofi Pasteur; Lot: [id number]; VIS given (Dali: 01/26/10). [facility] Tdap Vaccine Tdap Vaccine 42683 3 FERNANDO LANTIGUA Tdap; Series #: 1; .5 mL; IM; Left Arm; Mfg: SphereUp; Lot: [id number]; VIS given (Dali: 07/12/11). [facility] Immunization Administration One Vaccine Immunization Administration One Vaccine 33370 3 FERNANDO LANTIGUA [facility] Immunization Administration Each Additional Vaccine Immunization Administration Each Additional Vaccine 71955 3 FERNANDO LANTIGUA [facility] Non-Stre Test (___ 0,2) Non-Stress Test (___ 0,2) 67385 3 OMAR HANSEN [facility] OB Services Antepartum Care Only Subsequent Single Visit OB Services Antepartum Care Only Subsequent Single Visit 050F 3 YOLANDA AZUL [facility] OB Services Antepartum Care Only Subsequent Single Visit OB Services Antepartum Care Only Subsequent Single Visit 050 3 CROW ANTONIO OB Services Antepartum Care Only Subsequent Single Visit OB Services Antepartum Care Only Subsequent Single Visit 0502F 3 CROW ANTONIO OB Services Antepartum Care Only Subsequent Single Visit OB Services Antepartum Care Only Subsequent Single Visit 0502F 3 CROW ANTONIO Non-Stre Test (___ 0,2) Non-Stress Test (___ 0,2) 91654 3 YE FRIAS [facility] OB Services Antepartum Care Only Subsequent Single Visit OB Services Antepartum Care Only Subsequent Single Visit 0502F 2 CROW ANTONIO OB Services Antepartum Care Only First Visit, With Report OB Services Antepartum Care Only First Visit, With Report 0500F 2 HARPER FREEMAN [facility] Patient Counseling Medical Management Five To Eight Patients Patient Counseling Medical Management Five To Eight Patients [id number] 2 SATYA AGUIRRE DoD Social History Combined list of available smoking, tobacco, and other social history from Department of Defense and Veterans Affairs facilities. Social History Type Response Date Comment Sour e This section is an empty social history section. DoD
--- OUTSIDE RECORDS SUMMARY | 2025-01-28 18:44 | XMS_ITS | Continuity of Care Document ---
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 It does not include entries that were removed or entered in error. Problem Status Onset Date Problem Type Date of Resolution Comments Source Gynecologic Services Intrauterine Device (IUD) Insertion Active Condition [facility] Implantable Contraceptive Capsules - Insertion Inactive Condition [facility] NORMAL ROUTINE HISTORY AND PHYSICAL - Active Condition [facility] visit for: screening exam depression Inactive Condition DoD Inquiry And Counseling: Family Planning Active Condition DoD PREMATURE RUPTURE OF MEMBRANES - ANTEPARTUM CONDITION OR COM Inactive Condition [facility] Vaccines Prophylactic Need Against Influenza Inactive Condition [facility] Vaccines Prophylactic Need Against Combinations Of Diseases Inactive Condition [facility] Blood Pressure Isolated Elevated Active Condition [facility] Patient Counseling: Inquiry & Counseling Active Condition [facility] Supervision Of Normal Inactive Condition DoD DEPRESSION Active Condition [facility] NICOTINE DEPENDENCE - CONTINUOUS Active Condition [facility] MATERN TOBACCO USE COMPLIC PREG//PUERPER ANTEPART COND Active Condition [facility] Education Active Condition [facility] Ed Initial Visit What To Expect In Normal Active Condition [facility] Ed Initial Visit Development In 1st Trimester Active Condition [facility] Medications Combined list of outpatient medications from [...] ORAL, 'S LAB, 100 ea. BOTTLE Active [id number] 4 2023 90 Pharmac y Data Transac tion Service Facilit y HYDROXYZINE HCL (hydroxyzin e HCl), 25 MG, TABLET, ORAL, RISING PHARM, 500 ea. BOTTLE Active [id number] 4 2023 90 Pharmac y Data Transac tion Service Facilit y HYDROXYZINE HCL (hydroxyzin e HCl), 25 MG, TABLET, ORAL, RISING PHARM, 500 ea. BOTTLE Active [id number] 4 2023 90 Pharmac y Data Transac tion Service Facilit y OLANZAPINE (OLANZAPINE ), 15 MG, TABLET, ORAL, MACLEODS PHARMA, 30 ea. BOTTLE Active [id number] 4 2023 60 Pharmac y Data Transac tion Service Facilit y PRAZOSIN HCL (prazosin HCl), 1 MG, CAPSULE, ORAL, NOVITIUM/AN I PH, 100 ea. BOTTLE Active [id number] 4 2023 30 Pharmac y Data Transac tion Service Facilit y Immunizations Combined list of available immunizations from the Department of Defense and Veterans Affairs facilities. 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 purified surface antigen)-reti red CODE 1 2012 FERNANDO LANTIGUA [id number] Sanofi Pasteur (PMC) complet ed influenza virus vaccine, split virus (incl. purified surface antigen)- retired CODE DoD tetanus toxoid, reduced diphtheria toxoid, and acellular pertu is vaccine, adsorbed 1 2012 FERNANDO LANTIGUA [id number] [facility] [employer] (SKB) complet ed tetanus toxoid, reduced [...] ADM Date DC Date Status Disposition Source [facility] [place]) OUTPATIENT [id number] tob SATYA AGUIRRE 04/03 Released w/o Limitations [facility]( [facility] [place] OUTPATIENT [id number] tob rosita HARPER MACDONALD 04/11 Released w/o Limitations [facility]( [facility] [place]) [facility](Ob stetric [facility]) OUTPATIENT [id number] ISABEL ROSITA [id number] CROW ANTONIO 05/22 Released w/o Limitations [facility]( [facility] [place]) [facility]) TELE CONSULT [id number] Notes Entered by: KARLEE YUEN 01 Jun 2012 0926 ------- ------- ------- ------- -- Outpt consult BEATA ABDULLAHI 06/01 Referred for Appointment [facility]( [facility]) [facility]) TELE CONSULT [id number] Notes Entered by: KARLEE YUEN 27 Jun 2012 1046 ------- ------- ------- ------- -- Outpt consult BEATA ABDULLAHI 06/27 Referred for Appointment [facility]( [facility]) [facility] [place]) OUTPATIENT [id number] Notes Entered by: DARREL WALTON 29 Jun 2012 0157 ------- ------- ------- ------- -- cold/fl u symptom s CARLA VAZQUEZ 06/29 Released w/o Limitations [facility]( [facility] [place]) [facility] [place]) OUTPATIENT [id number] isabel cad [id number] CROW ANTONIO 07/18 Released w/o Limitations [facility]( [facility] [place] [facility](Ob stetric [facility]) OUTPATIENT [id number] ISABEL ROSITA [id number] CROW ANTONIO 08/14 Released w/o Limitations [facility]( [facility] [place] [facility] [place]) OUTPATIENT [id number] ISABEL rosita:09/17 RCOW ANTONIO 09/04 Released w/o Limitations [facility]( [facility] [place] [facility]) [facility] [place]) OUTPATIENT [id number] ISABEL rosita:09/17 YOLANDA AZUL 09/12 Released w/o Limitations [facility]( [facility] [place] [facility] [place]) OUTPATIENT [id number] Notes Entered by: Jeannie SPICER 12 Sep 2012 1217 ------- ------- ------- ------- -- REFERRE Alexx FROM CLINIC FOR HIGH BLOOD PRESSUR OMAR SEALS 09/12 Released w/o Limitations [facility]( [facility] [place] TO [facility] FROM OTHER THAN ER OR [facility] [id number] MAGALI QUILES 09/18 [facility] [place] OUTPATIENT [id number] Notes Entered by: KEVYN ODOM 19 Sep 2012 0049 ------- ------- ------- ------- -- SROM check MAGALI QUILES 09/19 [facility] [place] INPATIENT [id number] FERNANDO LANTIGUA 09/20 Inpatient- Still a [facility] [place] OUTPATIENT [id number] 11 weeks post OMAR HANSEN 12/06 Released w/o Limitations [facility]( [facility] [place]) Procedures Combined list of: 1) Procedures from Department of Veterans Affairs facilities going back up to thelast 18 months, not all VA non-surgical procedures are included; 2) All procedures from the Department of Defense facilities. Procedure Procedure Type Code Date Perfomer Comments [facility] e CARE VISIT () 3 DoD MEDICAL [...] FOR CONSULTATION ONLY,NOT FOR CONT CARE)] 3 [facility] SUBSEQ CARE VISIT () [EXCLS:PATIENTS WHO ARE SEEN FOR A CONDITION UNREL TO / CARE (EG,AN UP RESPIR INFECT;PATIENTS SEEN FOR CONSULTATION ONLY,NOT FOR CONT CARE)] 3 [facility] SUBSEQ CARE VISIT () [EXCLS:PATIENTS WHO ARE SEEN FOR A CONDITION UNREL TO / CARE (EG,AN UP RESPIR INFECT;PATIENTS SEEN FOR CONSULTATION ONLY,NOT FOR CONT CARE)] 3 [facility] SUBSEQ CARE VISIT () [EXCLS:PATIENTS WHO ARE SEEN FOR A CONDITION UNREL TO / CARE (EG,AN UP RESPIR INFECT;PATIENTS SEEN FOR CONSULTATION ONLY,NOT FOR CONT CARE)] 3 [facility] NON-STRESS TEST 3 [facility] SUBSEQ CARE VISIT () [EXCLS:PATIENTS WHO ARE SEEN FOR A CONDITION UNREL TO / CARE (EG,AN UP RESPIR INFECT;PATIENTS SEEN FOR CONSULTATION ONLY,NOT FOR CONT CARE)] 2 [facility] INITIAL CARE VISIT (REPORT AT 1ST ENCOUN W HEALTH CLOTH SHRINKING TESTER PROVIDING OBSTETRIC CARE. REPORT ALSO DATE OF VISIT &,IN A SEPARATE FIELD,THE DATE OF THE LAST MENSTRUAL PERIOD) 2 [facility] EDUCATION &TRAINING, PATIENT SELF-MGT QUALIFIED, NONPHYSICIAN HEALTH CLOTH SHRINKING TESTER USING STANDARDIZED CURRICULUM, [id number] W THE PATIENT (COULD INCL CAREGIVER/FAMILY) EA 30 MIN; 5-8 PATIENTS 2 [facility] Levonorgestrel-rele asing intrauterine contraceptive system, 52 mg 3 OMAR HANSEN Gynecologic Services Intrauterine Device (IUD) Insertion Gynecologic Services Intrauterine Device (IUD) Insertion 15368 3 OMAR HANSEN Etonogestrel (contraceptive) implant system, including implant and supplies 3 OMAR HANSEN Implantable Contraceptive Capsules - Insertion 3 OMAR HANSEN Obstetrical Services Care Visit Obstetrical Services Care Visit 0503F 3 OMAR HANSEN Influenza Split Virus Vaccine Age 3+ Years Intramuscular 3 FERNANDO LANTIGUA Influenza Split Virus; Series #: 1; .5 mL; IM; Left Arm; Mfg: Sanofi Pasteur; Lot: [id number]; VIS given (Dali: 01/26/10). [facility] Tdap Vaccine Tdap Vaccine 06108 3 FERNANDO LANTIGUA Tdap; Series #: 1; .5 mL; IM; Left Arm; Mfg: [employer] Ban[employer]; Lot: [id number]; VIS given (Dali: 07/12/11). [facility] Immunization Administration One Vaccine Immunization Administration One Vaccine 09415 3 FERNANDO LANTIGUA [facility] Immunization Administration Each Additional Vaccine Immunization Administration Each Additional Vaccine 66417 3 FERNANDO LANTIGUA [facility] Non-Stre Test (___ 0,2) Non-Stress Test (___ 0,2) 91141 3 OMAR HANSEN [facility] OB Services Antepartum Care Only Subsequent Single Visit OB Services Antepartum Care Only Subsequent Single Visit 050F 3 YOLANDA AZUL [facility] OB Services Antepartum Care Only Subsequent Single [...] Test (___ 0,2) Non-Stress Test (___ 0,2) 28155 3 YE FRIAS [facility] OB Services Antepartum Care Only Subsequent Single Visit OB Services Antepartum Care Only Subsequent Single Visit 0502F 2 CROW ANTONIO OB Services Antepartum Care Only First Visit, With Report OB Services Antepartum Care Only First Visit, With Report 0500F 2 HARPER FREEMAN [facility] Patient Counseling Medical Management Five To Eight Patients Patient Counseling Medical Management Five To Eight Patients [id number] 2 SATYA AGUIRRE DoD Social History Combined list of available smoking, tobacco, and other social history from Department of Defense and Veterans Affairs facilities. Social History Type Response Date Comment Sour e This section is an empty social history section. DoD
--- OUTSIDE RECORDS SUMMARY | 2025-01-28 19:10 | XMS_ITS | Encounter Summary ---
Author Organization [place] Address [facility] [place] [address] Care Team Providers Care Human Resources Department Supervisor Name Role Phone No Ref-Primary, Physician Primary Care Provider Reason for Visit * Reason Comments Vomiting Patient presents wit h severe nausea and vomiting every time she eats x 2 days. She is drinking water, beer but every time she puts food in her mouth she vomits. She is also having diarrhea that is pure liquid. She denies any abdominal pain. Encounter Details Date Type Department Care Team (Late st Contact Info) Description 01/28/2025 7:10 PM CDT Office Visit [facility] [address] [place] [address] Jacy Spaulding PA-C [address] [place] [address] Nausea and vomiting, unspecified vomiting type (Primary Dx); Diarrhea, unspecified type Social History Tobacco Use Types Packs/Day Years Used Date Smoking Tobacco: Every Day Cigarettes Smokeless Tobacco: Never Tobacco Cessation:Ready to Q uit: Not Asked; Counseling Given: Not Answered Comments:Vapes daily along with cigarettes Alcohol Use Standard Drinks/Week Comments Not Currently 0 (1 standard drink = 0.6 oz pur e alcohol) rarely PHQ-2 Answer Date Recorded PHQ-2 Score 0 06/28/2018 [place] Depression Scale Answer Date Recorded Last EPDS Total Score Not on file 03/23/2023 The thought of harming myself has occurred to me . 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 Gender Identity Not on file Sexual Orientation Not on file documented as of this encounter Last Filed Vital Signs Vital Sign Reading Time Taken Comments Blood Pressure 138/80 01/28/2025 6:56 PM CDT Pulse 87 01/28/2025 6:56 PM CDT Temperature 36.3 C (97.4 F) 01/28/2025 6:56 PM CDT Respiratory Rate 16 01/28/2025 6:56 PM CDT Oxygen Saturation 99% 01/28/2025 6:56 PM CDT Inhaled Oxygen Concentration - - Weight 67.2 kg (148 lb 1.6 oz) 01/28/2025 6:56 P M CDT Height 170.2 cm (5' 7) 01/28/2025 6:56 PM CDT Body Mass Index 23.2 01/28/2025 6:56 PM CDT documented in this encounter Patient Instructions * Attachments The following attachments cannot be sent through Care Everywhere. * Nausea and Vomiting (Puerto Rican) * Viral Infections ([place]ican) documented in this encounter Progress Notes * Penelope Porras CMA - 01/28/2025 7:10 PM CDT Urgent Care Clinic Visit Chief Complaint Patient presents with Vomiting Patient presents with severe nausea and vomiting every time she eats x 2 days. She is drinking water, beer but every time she puts food in her mouth she vomits. She is also having diarrhea that is pure liquid. She denies any abdominal pain. 01/28/2025 6:56 PM Additional Questions Roomed by Clarissa * Jacy Spaulding PA-C - 01/28/2025 7:10 PM CDT Assessment & Plan Nausea and vomiting, unspecified vomiting type Acute problem. Fortunately today CBC he is unremarkable, CMP reveals normal electrolytes, normal kidney function, liver function is within appropriate range, blood glucose is within appropriate range. UA not suggestive of infection. UPT is negative. We discussed viral etiology at this time. She is g iven Zofran in urgent care today prior to discharge. Zofran is also prescribed as needed for nausea. Continue to push fluids. COVID PCR test is pending. Patient will be notified if any positive findings. Will anticipate gradual improvement. Close monitoring of symptoms. Follow-up if any worsening symptoms. Patient agrees with the plan. - CBC with platelets and differential - Comprehensive metabolic panel (BMP + Alb, Alk Phos, ALT, AST, Total. Bili, TP) - UA Macroscopic with reflex to Microscopic and Culture - Lab Collect - HCG Qual, Urine ([id number]) - UA Microscopic with Reflex to Culture - ondansetron (ZOFRAN ODT) ODT tab 4 mg - ondansetron (ZOFRAN ODT) 4 MG ODT tab Dispense: 20 tablet; Refill: 0 - COVID-19 Virus (Coronavirus) by PCR Nose Diarrhea, unspecified type Acute problem. On exam she is in no acute distress. Vitals are stable. We discussed viral gastroenteritis at this time. COVID PCR test is pending. She will be notified if any positive finding. If diarrhea not improving as anticipated over the next few days, recommend stool culture. Focused enteric p athogen panel by PCR ordered and is pending. Recommended BRAT diet, push fluids, probiotics. Will anticipate gradual improvement. Follow-up if any worsening symptoms. Patient agrees with the plan. - Focused Enteric Pathogen Panel by PCR - COVID-19 Virus (Coronavirus) by PCR Nose Return in about 5 days (around 02/02/2025) for Symptoms failing to improve. Jacy Spaulding PA-C [facility] [place] Unger is a 39 year old female who presents to clinic today for the following health issues: Chief Complaint Patient presents with Vomiting Patient presents with severe nausea and vomiting every time she eats x 2 days. She is drinking water, beer but every time she puts food in her mouth she vomits. She is also having diarrhea that is pure liquid. She denies any abdominal pain. 01/28/2025 6:56 PM Additional Questions Roomed by Clarissa Accompanied by HPI Patient is presenting to urgent care today accompanied by her with a complaint of severe nausea and vomiting. Patient reports vomiting every time she eats solid foods. Onset of symptoms 2 days ago. Also has diarrhea. Vomiting and diarrhea nonbloody. Has had some heart palpitations in the past couple days. No recent travel. No new medications. Patient reports chills and shakes. Patient denies any chances for , reports history of tubal ligation a few years ago. No known sick household contacts. Denies any abdominal pain. Treatment tried: increased fluids intake Review of Systems Constitutional, HEENT, cardiovascular, pulmonary, GI, , musculoskeletal, neuro, skin, endocrine and psych systems are negative, except as otherwise noted. Objective BP 138/80 Pulse 87 Temp 97.4 ??F (36.3 ??C) (Tympanic) Resp 16 Ht 1.702 m (5' 7) Wt 67.2kg (148 lb 1.6 oz) LMP (LMP Unknown) SpO2 99% BMI 23.20 kg/m?? Physical Exam GENERAL: alert and no distress RESP: lungs clear to auscultation - no rales, rhonchi or wheezes CV: regular rate and rhythm, normal S1 S2 ABDOMEN: soft, nontender, no hepatosplenomegaly, no masses and bowel sounds normal MS: no gross musculoskeletal defects noted, no edema SKIN: no suspicious lesions or rashes NEURO: Normal strength and tone, mentation intact and speech normal Recent Results (from the past 24 hours) CBC with platelets and differential Narrative The following orders were created for panel order CBC with platelets and differential. Procedure Abnormality Status --------- ------ CBC with platelets and ...[[id number]] Final result Please view results for these tests on the individual orders. Comprehensive metabolic panel (BMP + Alb, Alk Phos, ALT, AST, Total. Bili, TP) Result Value Ref Range Sodium 140 135 - 145 mmol/L Potassium 4.1 3.4 - 5.3 mmol/L Chloride 106 94 - 109 mmol/L Carbon Dioxide (CO2) 27 20 - 32 mmol/L Anion Gap 7 3 - 14 mmol/L Urea Nitrogen 9 7 - 30 mg/dL Creatinine 0.70 0.52 - 1.04 mg/dL GFR Estimate >90 >60 mL/min/1.73m2 Calcium 9.9 8.5 - 10.1 mg/dL Glucose 103 (H) 70 - 99 mg/dL Alkaline Phosphatase 60 40 - 150 U/L AST 53 (H) 0 - 45 U/L ALT 48 0 - 50 U/L Protein Total 8.0 6.8 - 8.8 g/dL Albumin 4.4 3.4 - 5.0 g/dL Bilirubin Total 0.7 0.2 - 1.3 mg/dL UA Macroscopic with reflex to Microscopic and Culture - Lab Collect Specimen: Urine, Midstream Result Value Ref Range Color Urine Yandy (A) Colorless, Straw, Light Yellow, Yellow Appearance Urine Slightly Cloudy (A) Clear Glucose Urine Negative Negative mg/dL Bilirubin Urine Moderate (A) Negative Ketones Urine 15 (A) Negative mg/dL Specific [place] Urine >=1.030 1.003 - 1.035 Blood Urine Moderate (A) Negative pH Urine 5.5 5.0 - 7.0 Protein Albumin Urine 100 (A) Negative mg/dL Urobilinogen Urine 0.2 0.2, 1.0 E.U./dL Nitrite Urine Negative Negative Leukocyte Esterase Urine Negative Negative HCG Qual, Urine ([id number]) Result Value Ref Range hCG Urine Qualitative Negative Negative CBC with platelets and differential Result Value Ref Range WBC Count 7.53 4.00 - 11.00 10e3/uL RBC Count 4.40 3.80 - 5.20 10e6/uL Hemoglobin 13.9 11.7 - 15.7 g/dL Hematocrit 41.1 35.0 - 47.0 % MCV 93.4 78.0 - 100.0 fL MCH 31.6 26.5 - 33.0 pg MCHC 33.8 31.5 - 36.5 g/dL RDW 11.8 10.0 - 15.0 % Platelet Count 254 150 - 450 10e3/uL % Neutrophils 50.1 % % Lymphocytes 38.8 % % Monocytes 10.0 % % Eosinophils 0.7 % % Basophils 0.3 % % Immature Granulocytes 0.1 % Absolute Neutrophils 3.78 1.60 - 8.30 10e3/uL Absolute Lymphocytes 2.92 0.80 - 5.30 10e3/uL Absolute Monocytes 0.75 0.00 - 1.30 10e3/uL Absolute Eosinophils 0.05 0.00 - 0.70 10e3/uL Absolute Basophils 0.02 0.00 - 0.20 10e3/uL Absolute Immature Granulocytes 0.01 <=0.40 10e3/uL UA Microscopic with Reflex to Culture Result Value Ref Range Bacteria Urine Few (A) None Seen /HPF RBC Urine 10-25 (A) 0-2 /HPF /HPF WBC Urine 0-5 0-5 /HPF /HPF Squamous Epithelials Urine Few (A) None Seen /LPF Mucus Urine Present (A) None Seen /LPF Narrative Urine Culture not indicated documented in this encounter Plan of Treatment Pending Results Name Type Priority Associated Diagnoses Date /Time COVID-19 Virus (Coronavirus) by PCR Nose Lab Routine Nausea and vomiting, unspecified vomiting type Diarrhea, unspecified type 01/28/2025 8:15 PM CDT Scheduled Orders Name Type Priority Associated Diagnoses Orde r Schedule Focused Enteric Pathogen Panel by PCR Microbiology Routine Diarrhea, unspecified type Expected: 01/28/2025 (Approximate), Expires: 01/28/2026 documented as of this encounter Procedures Procedure Name Priority Date/Time Associated Diagnosis Comments CBC WITH PLATELETS AND DIFFERENTIAL Routine 01/28/2025 7:41 PM CDT Nausea and vomiting, unspecified vomiting type HCG QUALITATIVE URINE Routine 01/28/2025 7:41 PM CDT Nausea and vomiting, unspecified vomiting type UA MICROSCOPIC WITH REFLEX TO CULTURE Routine 01/28/2025 7:41 PM CDT Nausea and vomiting, unspecified vomiting type UA MACROSCOPIC WITH REFLEX TO MICRO AND CULTURE Routine 01/28/2025 7:41 PM CDT Nausea and vomiting, unspecified vomiting type CBC WITH PLATELETS & DIFFERENTIAL Routine 01/28/2025 7:41 PM CDT Nausea and vomiting, unspecified vomiting type COMPREHENSIVE METABOLIC PANEL STAT 01/28/2025 7:41 PM CDT Nausea and vomiting, unspecified vomiting type documented in this encounter Results * (ABNORMAL) UA Microscopic with Reflex to Culture (01/28/2025 7:41 PM CDT) Bacteria Urine Few(A) None Seen /HPF [place] 01/28/2025 7:47 PM CDT [facility] RBC Urine 10-25(A) 0-2 /HPF /HPF [place] 01/28/2025 7:47 PM CDT [facility] WBC Urine 0-5 0-5 /HPF /HPF [place] 01/28/2025 7:47 PM CDT [facility] Squamous Epithelials Urine Few(A) None Seen /LPF [place] 01/28/2025 7:47 PM CDT [facility] Mucus Urine Present(A ) None Seen /LPF [place] 01/28/2025 7:47 PM CDT [facility] Urine MID-STREAM URINE SPECIMEN / Unknown Non-blood Collection / Unknown 01/28/2025 7:41 PM CDT 01/28/2025 7:41 PM CDT Narrative [facility] - 01/28/2025 7:47 PM CDT Urine Culture not indicated Jacy Spaulding PA-C LAB - URINE ORDERABLES Final Result [facility] [address] [facility] (no room number, 1st floor of clinic) [place] [address], [facility] * CBC with platelets and differential (01/28/2025 7:41 PM CDT) WBC Count 7.53 4.00 - 11.00 10e3/uL 01/28/2025 7:43 PM CDT [facility] RBC Count 4.40 3.80 - 5.20 10e6/uL 01/28/2025 7:43 PM CDT [facility] Hemoglobin 13.9 11.7 - 15.7 g/dL 01/28/2025 7:43 PM CDT [facility] Hematocrit 41.1 35.0 - 47.0 % 01/28/2025 7:43 PM CDT [facility] MCV 93.4 78.0 - 100.0 fL 01/28/2025 7:43 PM CDT [facility] MCH 31.6 26.5 - 33.0 pg 01/28/2025 7:43 PM CDT [facility] MCHC 33.8 31.5 - 36.5 g/dL 01/28/2025 7:43 PM CDT [facility] RDW 11.8 10.0 - 15.0 % 01/28/2025 7:43 PM CDT [facility] Platelet Count 254 150 - 450 10e3/uL 01/28/2025 7:43 PM CDT [facility] % Neutrophils 50.1 % 01/28/2025 7:43 PM CDT [facility] % Lymphocytes 38.8 % 01/28/2025 7:43 PM CDT [facility] % Monocytes 10.0 % 01/28/2025 7:43 PM CDT [facility] % Eosinophils 0.7 % 01/28/2025 7:43 PM CDT [facility] % Basophils 0.3 % 01/28/2025 7:43 PM CDT [facility] % Immature Granulocytes 0.1 % 01/28/2025 7:43 PM CDT [facility] Absolute Neutrophils 3.78 1.60 - 8.30 10e3/uL 01/28/2025 7:43 PM CDT [facility] Absolute Lymphocytes 2.92 0.80 - 5.30 10e3/uL 01/28/2025 7:43 PM CDT [facility] Absolute Monocytes 0.75 0.00 - 1.30 10e3/uL 01/28/2025 7:43 PM CDT [facility] Absolute Eosinophils 0.05 0.00 - 0.70 10e3/uL 01/28/2025 7:43 PM CDT [facility] Absolute Basophils 0.02 0.00 - 0.20 10e3/uL 01/28/2025 7:43 PM CDT [facility] Absolute Immature Granulocytes 0.01 <=0.40 10e3/uL 01/28/2025 7:43 PM CDT [facility] Blood BLOOD SPECIMEN / Unknown Venipuncture / Unknown 01/28/2025 7:41 PM CDT 01/28/2025 7:41 PM CDT Jacy Spaulding PA-C LAB - BLOOD ORDERABLES Final Result [facility] [address] [facility] (no room number, 1st floor of clinic) [place] [address], [place] * HCG Qual, Urine ([id number]) (01/28/2025 7:41 PM CDT) hCG Urine Qualitative Negative Negative [place]LETTE 01/28/2025 7:48 PM CDT [facility] Comment:This test is for scr eening purposes. Results should be interpreted along with the clinical picture. Confirmation testing is available if warranted by ordering [id number], HCG Quantitative . Urine MID-STREAM URINE SPECIMEN / Unknown Non-blood Collection / Unknown 01/28/2025 7:41 PM CDT 01/28/2025 7:41 PM CDT Jacy Spaulding PA-C LAB - URINE ORDERABLES Final Result LABORATORY [facility] [address] [facility] (no room number, 1st floor of clinic) [place] [address], [facility] * (ABNORMAL) UA Macroscopic with reflex to Microscopic and Culture - Lab Collect (01/28/2025 7:41 PM CDT) Color Urine Yandy(A) Colorless, Straw, Light Yellow, Yellow 01/28/2025 7:47 PM CDT [facility] Appearance Urine Slightly Cloudy(A) Clear 01/28/2025 7:47 PM CDT [facility] Glucose Urine Negative Negative mg/dL 01/28/2025 7:47 PM CDT [facility] Bilirubin Urine Moderate(A) Negative 01/29/20 25 7:47 PM CDT [facility] Ketones Urine 15(A) Negative mg/dL 01/28/2025 7:47 PM CDT [facility] Specific [place] Urine >=1.030 1.003 - 1.035 01/28/2025 7:47 PM CDT [facility] Blood Urine Moderate(A) Negative 01/28/2025 7:47 PM CDT [facility] pH Urine 5.5 5.0 - 7.0 01/28/2025 7:47 PM CDT [facility] Protein Albumin Urine 100(A) Negative mg/dL 01/28/2025 7:47 PM CDT [facility] Urobilinogen Urine 0.2 0.2, 1.0 E.U./dL 01/28/2025 7:47 PM CDT [facility] Nitrite Urine Negative Negative 01/28/2025 7:47 PM CDT [facility] Leukocyte Esterase Urine Negative Negative 01/28/2025 7:47 PM CDT [facility] Urine MID-STREAM URINE SPECIMEN / Unknown Non-blood Collection / Unknown 01/28/2025 7:41 PM CDT 01/28/2025 7:41 PM CDT Jacy Spaulding PA-C LAB - URINE ORDERABLES Final Result [facility] [address] [facility] (no room number, 1st floor of clinic) [place] [address], [facility] * (ABNORMAL) Comprehensive metabolic panel (BMP + Alb, Alk Phos, ALT, AST, Total. Bili, TP) (01/28/2025 7:41 PM CDT) Sodium 140 135 - 145 mmol/L 01/28/2025 7:59 PM CDT [facility] Potassium 4.1 3.4 - 5.3 mmol/L 01/28/2025 7:59 PM CDT [facility] Chloride 106 94 - 109 mmol/L 01/28/2025 7:59 PM CDT [facility] Carbon Dioxide (CO2) 27 20 - 32 mmol/L 01/28/2025 7:59 PM CDT [facility] Anion Gap 7 3 - 14 mmol/L 01/28/2025 7:59 PM CDT [facility] Urea Nitrogen 9 7 - 30 mg/dL 01/28/2025 7:59 PM CDT [facility] Creatinine 0.70 0.52 - 1.04 mg/dL 01/28/2025 7:59 PM CDT [facility] GFR Estimate >90 >60 mL/min/1.7 3m2 01/28/2025 7:59 PM CDT [facility] Calcium 9.9 8.5 - 10.1 mg/dL 01/28/2025 7:59 PM CDT [facility] Glucose 103(H) 70 - 99 mg/dL 01/28/2025 7:59 PM CDT [facility] Alkaline Phosphatase 60 40 - 150 U/L 01/28/2025 7:59 PM CDT [facility] AST 53(H) 0 - 45 U/L 01/28/2025 7:59 PM CDT [facility] ALT 48 0 - 50 U/L 01/28/2025 7:59 PM CDT [facility] Protein Total 8.0 6.8 - 8.8 g/dL 01/28/2025 7:59 PM CDT [facility] Albumin 4.4 3.4 - 5.0 g/dL 01/28/2025 7:59 PM CDT [facility] Bilirubin Total 0.7 0.2 - 1.3 mg/dL 01/28/2025 7:59 PM CDT [facility] Blood BLOOD SPECIMEN / Unknown Venipuncture / Unknown 01/28/2025 7:41 PM CDT 01/28/2025 7:41 PM CDT Jacy Spaulding PA-C LAB - BLOOD ORDERABLES Final Result LABORATORY [facility] [address] [facility] (no room number, 1st floor of clinic) [place] [address], [facility] documented in this encounter Visit Diagnoses Diagnosis Nausea and vomiting, unspecified vomiting type- Primary Diarrhea, unspecified type documented in this encounter Administered Medications Inactive Administered Medications - up to 3 most recent administrations Medication Order MAR Action Action Date Dose Rate Site ondansetron (ZOFRAN ODT) ODT tab 4 mg 4 mg, Oral, ONCE, On Mon01/28/25 at 2030, For 1 dose, With dry hands, peel back foil backing and gently remove tablet. Do not push oral disintegrating tablet through foil backing. Administer immediately on tongue and oral disintegrating tablet dissolves in seconds, then swallow with saliva. Liquid not required.Indications:Nausea and vomiting, unspecified vomiting type $Given 01/28/2025 8:12 PM CDT 4 mg documented in this encounter Additional Health Concerns Assessment Noted Time PHQ-9 Depression Total Score: 0 03/21/20 15 7:23 AM CDT documented as of this encounter Care Teams Human Resources Department Supervisor Relationship Specialty Start Date End Date No Ref-Primary, Physician PCP - General 11/16/21 documented as of this encounter
--- OUTSIDE RECORDS SUMMARY | 2025-01-29 03:02 | XMS_ITS | Clinical Summary ---
Author Organization [employer] Address [address] [place] [address] Care Team Providers Care Services Rep Name Role Phone Unavailable Primary Care Provider Unavailabl e Source Comments You are receiving this document as you are listed as the primary care provider,follow-up provider, or the patient has been referred to you for consultation.This is in compliance with the Medicare and[facility] Hospital[facility] EHR Incentive Program,which states Providers who transition their patient to another setting of careor provider of care or refers their patient to another provider of care shouldprovide summary care record for each transition of care or referral. [employer] Allergies No known active allergies Medications * [...] (09/02/2022): This patient is enrolled in the [employer] Program. The program provides patients with support, education, referrals and resources during their . Reason for enrollment: Recovery supports, THC, resources as needed For more information, please contact Roopa Lucero, [facility] Specialist, at [phone]. High risk , antepartum 08/30/2022 Antepartum multigravida of advanced maternal age 0308/30/2022 ADHD (attention deficit hyperactivity disorder) 09/05/2011 Overview (08/30/2022): Patient is followed by PAMEL[facility] AND[facility] for ongoing prescription of stimulants. Due to illegal substance in urine on 11/02/2015 will not receive further stimulants from [facility]. Tobacco use disorder 09/05/2011 Resolved Problems Problem Noted Date Diagnosed Date Resolved Date Finger amputation, no complication, traumatic 08/31/19 23 08/30/2022 Polysubstance dependence 09/22/2015 Schizoaffective disorder, bipolar type 09/22/2015 08/30/2022 Suicidal ideation 09/22/2015 08/30/2022 Encounters Date Type Department Care Team Description 01/02/2025 10:30 AM CDT Office Visit [address] [id number] aNthaly Encinas DDS Left without seen 12/18/2024 7:40 AM CDT [facility] Visit [facility] [address] [place] [address] Melissa Cole [facility] Dental Exam (Broken teeth, having a hard [...] Every Day Cigarettes 1 26.5 Started: 07/20/1998 Tobacco Cessation:Ready to Q uit: [...] on file Legal Sex Female 1:22 PM [employer] Gender Identity Not on file Sexual Orientation [...] 08/30/2022 11:14 AM CDT Plan of Treatment Health Maintenance Due Date Last Done Comments Adult Preventive Visit 2004 HepB Vaccine (1) 2005 Pneumococcal Vaccine (1 of 2 - PCV) 2005 HPV Vaccine (1 - 3-dose SCDM series) 2013 COVID-19 Vaccine (2023-2 5 season) 2024 Influenza Vaccine (#1) 2025 Cervical Cancer Screening 08/31/20272022, 08/30/2022 DTaP/Tdap/Td Vaccine (4 - Tdap) 01/02/2033 01/02/2023, 06/19/2012, 06/19/2004 Zoster/Shingles Vaccine (1 o f 2) 2036 HIV Screening (Preventive Services) Completed 08/30/2022 Hep C Screening (Preventive Services) Completed 08/30/2022 HepA Vaccine Aged Out No longer eligi [...] into pulp Patient left without being seen FILM-PANORAMIC Routine 12/18/2024 7:40 AM CDT Generalized gingival recession [id number] Routine 12/18/2024 7: 40 AM CDT Generalized [...] 1:10 PM CDT) Case Report Pap Case: [id number] Authorizing Provider: Brianna Ma APRN, Collected: 08/30/2022 1310 CNM Ordering Location: [facility] Received: 08/30/2022 1325 Services-[facility] First Screen: Anay Khalil Specimen: Pap Test, Routine, Cervix/Endocervix 09/20/2022 2:02 PM CDT [facility] Pap Specimen Adequacy Satisfactory for evaluation, endocervical/reeder sformation zone component present. 09/20/2022 2:02 PM CDT [facility] Pap Interpretation (NILM) Negative for intraepithelial lesion or malignancy. 09/20/2022 2:02 PM CDT [facility] at 1402 CDT Pap Disclaimer The Pap test is a screening test designed to aid in the detection of cervical cancer and its precursor lesions. It is not a diagnostic procedure and should not be used as the sole means of detecting cervical cancer. Both false-positive and false-negative results may occur. 09/20/2022 2:02 PM CDT [facility] Gross Description The specimen is received in SurePath fixative and properly labeled. 1 Pap-stained SurePath slide is prepared. 09/20/2022 2:02 PM CDT [facility] Embedded Images 2:02 PM CDT [facility] Other Specimen Type ENTIRE ENDOCERVIX / Unknown 08/30/2022 1:10 PM CDT 08/30/2022 1:25 PM CDT Comment:LMP: No LMP recorded (lmp unknown). Patient is . Brianna Ma APRN, [facility] PATHOLOGY Final Result [facility] [address] * HIV 1/2 Ag/Ab 4th Generation (08/30/2022 12:17 PM CDT) HIV 1/2 Antigen/Antib jc (4th generation) Negative (Non Reactive) Negative (Non Reactive) 08/30/2022 8:51 PM CDT [facility] Comment:HIV-1 p24 Antigen an d HIV-1/HIV-2 Antibody not detected Blood Venipuncture / Unknown 08/30/2022 12:17 PM CDT 08/30/2022 12:17 PM CDT Brianna Ma APRN, CNM LAB_1 Final Result Performing Organization Address City/[facility]/ZIP Co de Phone Number [facility] [address] * Hepatitis C Antibody, with Reflex (08/30/2022 12:17 PM CDT) Hepatitis C Antibody Negative (Non Reactive) Negative (Non Reactive) 08/30/2022 8:51 PM CDT [facility] Comment:Antibodies to HCV no t detected. Does not exclude the possiblity of exposure to HCV. Blood Venipuncture / Unknown 08/30/2022 12:17 PM CDT 08/30/2022 12:17 PM CDT us Brianna Ma APRN, [facility] LAB_1 Final Result [facility] [address] [place] [address], [facility] from Last 3 Months or Most Recently Relevant to Health Maintenance Insurance [address] [place] [id number] [facility] [address] [place] [address] [facility]
--- OUTSIDE RECORDS SUMMARY | 2025-01-29 03:03 | XMS_ITS | Clinical Summary ---
Author Organization [facility] Address [address] [place] [address] Care Team Providers Care Deployment Technician Name Role Phone None Reported, Pcp Primary Care Provider Unavail able Source Comments Patient records contain information from all sites at [facility]. For routine questions regarding patient records, call [phone] during business hours, M-F 8:00 AM - 5:00 PM Central Time. Record requests for emergency care only can be directed to [phone] at any time.[facility] Allergies No known active allergies Medications * [...] occasionally drinks tequilla, 4 beers per day [facility] [employer] Answer Date Recorded In the past 12 months has e [employer] oil, or water [facility] threatened to shut off services in [...] your living situation today? 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 Gender Identity Not on file Sexual Orientation [...] years) (1 of 2 - PCV) 2005 HPV Vaccines (1 - 3-dose SCDM series) 2013 COVID-19 Vaccine (1 - season) 2024 Depression Screening (Annual PHQ-2) 06/19/2024 Glucose Test for Med Monitoring 10/17/2024 10/18/2023, 10/14/2023, 03/24/2023, Additional history exists Tobacco Cessation counseling 11/01/2024 11/02/2023 Influenza Vaccine (#1) 2025 09/20/2012 Cervical/Vaginal Cancer Screening 08/30/2025 08/30/2022 DTaP,Tdap,and Td Vaccines (5 - Td or Tdap) 01/02/2033 01/02/2023, 09/20/2012, 06/19/2012, Additional history exists IPV Vaccines Aged Out No longer eligi [...] - 1.2 mg/dL 10/18/2023 8:05 PM CDT MK Blood (Blood, Venous) 10/18/2023 7:41 PM CDT 10/18/2023 7:45 PM CDT us Aruna Manriquez P.A.-C., P.A. LAB BLOOD ADD-O N Final Result [facility] [address] [place] [address], [facility] MKTO [facility] [place] [address] [place] [address] from Last 3 Months or Most Recently Relevant to Health Maintenance Advance Directives For more information, please contact: [phone] * Full Code (Latest Code Status on File) Date Activated Date Inactivated Comments 10/15/2023 6:12 AM 10/23/2023 5:23 PM Question Answer Comments Full Code: Not Discussed Due to: Not medically appropriate * Full Code Date Activated Date Inactivated Comments 10/10/2023 6:24 PM 10/13/2023 6:07 PM Question Answer Comments Full Code: Not Discussed Due to: Not medically appropriate Care Teams Deployment Technician Relationship Specialty Start Date End Date None Reported, Pcp PCP - General Family Medicine 10/14/23
--- OUTSIDE RECORDS SUMMARY | 2025-01-29 03:03 | XMS_ITS | Clinical Summary ---
Author Organization [facility] Address [facility] [place] [address] Care Team Providers Care Wrapper Dipper Name Role Phone No Ref-Primary, Physician Primary [...] Active Additional Information Patient not taking.Reported on 01/28/2025 docusate sodium (COLACE) 100 MG capsuleIndicatio ns: (spontaneous vaginal delivery) Take 1 capsule (100 mg) by mouth daily 30 capsule 3 Active Additional Information Patient not taking.Reported on 01/28/2025 ibuprofen (ADVIL/MOTRIN) 800 MG tabletIndication s: (spontaneous vaginal delivery) Take 1 tablet (800 mg) by mouth every 6 hours as needed for other (cramping) 60 tablet 3 Active Additional Information Patient not taking.Reported on 01/28/2025 labetalol (NORMODYNE) 200 MG tabletIndication s:Preeclampsia in period Take 1 tablet (200 mg) by mouth every 8 hours 180 tablet 1 3 Active Additional Information Patient not taking.Reported on 01/28/2025 labetalol (NORMODYNE) 300 MG tabletIndication s:Preeclampsia in period Take 2 tablets (600 mg) by mouth every 8 hours 30 tablet 1 3 Active Additional Information Patient not taking.Reported on 01/28/2025 NIFEdipine ER OSMOTIC (ADALAT CC) 30 MG 24 hr tabletIndication s:Preeclampsia in period Take 1 tablet (30 mg) by mouth 2 times daily 60 tablet 1 3 Active Additional Information Patient not taking.Reported on 01/28/2025 triamcinolone (KENALOG) 0.1 % external creamIndications :Atopic dermatitis, unspecified type Apply topically 2 times daily 80 g 1 3 Active Additional Information Patient not taking.Reported on 01/28/2025 ondansetron (ZOFRAN ODT) 4 MG ODT tabIndications:N ausea and vomiting, unspecified vomiting type Take 1 tablet (4 mg) by mouth every 8 hours as needed for nausea or vomiting. 20 tablet 5 Active Hospital, Clinic, or Other Facility Administered Medication Ordered Dose Route Frequency Start Date End Date Status ondansetron (ZOFRAN ODT) ODT tab 4 mgIndications:Nausea and vomiting, unspecified vomiting type 4 mg PO ONCE 01/28/2025 01/28/2025 Ended Active Problems Problem Noted Date Diagnosed Date [...] 11/02/2015 will not receive further stimulants from [facility]. Tobacco use disorder 09/05/2011 CARDIOVASCULAR SCREENING; LDL GOAL LESS THAN 160 09/05/2011 Personal history of Methicil ramana resistant Staphylococcus aureus infection 05/18/2010 Finger amputation, no complication Resolved Problems Problem Noted Date Diagnosed Date Resolved Date Mild major depression 09/05/20112014 Encounters Date Type Department Care Team Description 01/28/2025 7:10 PM CDT Office Visit [facility] [address] [place] [address] Jacy Spaulding PA-C Nausea and vomiting, unspecified vomiting type (Primary Dx); Diarrhea, unspecified type 01/28/2025 Travel from Last 3 Months Immunizations Immunization Administration Dates Next Due MMR [...] Answer Date Recorded PHQ-2 Score 0 06/28/2018 [place] Depression Scale Answer Date Recorded Last EPDS Total Score Not on file 03/23/2023 The thought of harming myself has occurred to me . 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 Gender Identity Not on file Sexual Orientation [...] Mass Index 23.2 01/28/2025 6:56 PM CDT Plan of Treatment Health Maintenance Due Date Last Done Comments ADVANCE CARE PLANNING 1986 ANNUAL REVIEW OF HM ORDERS 1986 HEPATITIS A VACCINE (1 of 2 - Risk 2-dose series) 2005 PNEUMOCOCCAL VACCINE: PEDIATRICS (0 to 5 YEARS) AND AT-RISK PATIENTS (6 to 49 YEARS) (1 of 2 - PCV) 2005 NICOTINE/TOBACCO CESSATION COUNSELING Q 1 YR 07/09/2016 07/09/2015 YEARLY PREVENTIVE VISIT 07/09/2016 07/09/2015 COVID-19 VACCINE ( season) 2024 PHQ-2 (once per calendar year) 2024 07/09/2015, 03/20/2015, 03/20/2015 INFLUENZA VACCINE (#1) 2025 05/12/1995 PAP 08/30/2025 08/30/2022, 08/17, 07/09/2015 DIABETES SCREENING 01/29/2028 01/28/2025, 1 , 03/23/2023, Additional history exists DTAP/TDAP/TD VACCINE (8 - Td or Tdap) 01/02/2033 01/02/2023, 09/20/2012, 06/19/2012, Additional history exists ZOSTER VACCINE (1 of 2) 2036 HEPATITIS B VACCINE Completed 06/13/2000, 02/26/1999, 01/19/1999 HPV VACCINE Completed 12/11/2008, 06/20, 07/11/2006, Additional history exists HEPATITIS C SCREENING Completed 08/30/2022 HIV SCREENING Completed 08/30/2022 MENINGITIS VACCINE Aged Out No longer eligible based on patient's age to complete this topic Procedures Procedure Name Priority Date/Time Associated Diagnosis Comments CBC WITH PLATELETS & DIFFERENTIAL Routine 01/28/2025 7:41 PM CDT Nausea and vomiting, unspecified vomiting type UA MICROSCOPIC WITH REFLEX TO CULTURE Routine 01/28/2025 7:41 PM CDT Nausea and vomiting, unspecified vomiting type CBC WITH PLATELETS AND DIFFERENTIAL Routine 01/28/2025 7:41 PM CDT Nausea and vomiting, unspecified vomiting type HCG QUALITATIVE URINE Routine 01/28/2025 7:41 PM CDT Nausea and vomiting, unspecified vomiting type UA MACROSCOPIC WITH REFLEX TO MICRO AND CULTURE Routine 01/28/2025 7:41 PM CDT Nausea and vomiting, unspecified vomiting type COMPREHENSIVE METABOLIC PANEL STAT 01/28/2025 7:41 PM CDT Nausea and vomiting, unspecified vomiting type PAP IMAGED THIN LAYER SCREEN Routine 07/09/2015 12:00 AM MANAGING JEWELER Routine general medical examination at a health care facility from Last 3 Months or Most Recently Relevant to Health Maintenance Results * CBC with platelets and differential (01/28/2025 [...] - BLOOD ORDERABLES Final Result [facility] [address] [facility] (no room number, 1st floor of clinic) [place] [address], [facility] * HCG Qual, Urine ([id number]) (01/28/2025 7:41 PM CDT) hCG Urine Qualitative Negative Negative CHARLETTE 01/28/2025 7:48 PM CDT [facility] LAB[facility] Comment:This test is for scr eening purposes. Results should be interpreted along with the clinical picture. Confirmation testing is available if warranted by ordering [id number], HCG Quantitative . Urine MID-STREAM URINE SPECIMEN / Unknown Non-blood Collection / Unknown 01/28/2025 7:41 PM CDT 01/28/2025 7:41 PM CDT Jacy Spaulding PA-C LAB - URINE ORDERABLES Final Result LABORATORY [facility] [address] [facility] (no room number, 1st floor of [facility] [place] [address] * (ABNORMAL) UA Microscopic with Reflex to Culture (01/28/2025 7:41 PM CDT) Bacteria Urine Few(A) None Seen /HPF CHARLETTE 01/28/2025 7:47 PM CDT LABORATORY RBC Urine 10-25(A) 0-2 /HPF /HPF [...] PM CDT 01/28/2025 7:41 PM CDT Narrative LABORATORY - 01/28/2025 7:47 PM CDT Urine Culture not indicated Jacy Spaulding PA-C LAB - URINE ORDERABLES Final Result LABORATORY [facility] [address] [facility] (no room number, 1st floor of [facility] [place] [address], [facility] * (ABNORMAL) UA Macroscopic with reflex to [...] 01/28/2025 7:47 PM CDT [facility] LAB[facility]AT[facility] Specific [facility] Urine >=1.030 1.003 - 1.035 01/28/2025 7:47 [...] LAB - URINE ORDERABLES Final Result LABORATORY [facility] [address] [facility] (no room number, 1st floor of clinic) [place] [address], [facility] * (ABNORMAL) Comprehensive metabolic panel (BMP + [...] 7:41 PM CDT 01/28/2025 7:41 PM CDT us Jacy Spaulding PA-C LAB - BLOOD ORDERABLES Final Result LABORATORY [facility] [address] Lab (no room number, 1st floor of clinic) [place] [address] * PAP IMAGED THIN LAYER SCREEN (07/09/2015 12:00 AM MANAGING JEWELER) PAP ALICIA Barroso Report Patient Name: POWER PEREZ MR#: [id number] Specimen #: [id number] Collected: 07/09/2015 Received: 07/10/2015 Reported: 07/14/2015 14:32 [...] by: Diane Giraldo Processed and screened at [facility] CLINICAL HISTORY: LMP: 07/02/15 Papanicolaou Test Limitations: Cervical cytology is a screening test with limited sensitivity; regular screening is critical for cancer prevention; Pap tests are primarily effective for the diagnosis/preventi on of squamous cell carcinoma, not adenocarcinomas or other cancers. TESTING LAB LOCATION: [address] [address] COLLECTION SITE: Client: [facility] Location: [facility] (R) RADHA Cytologic material (specimen) 07/09/2015 07/10/2015 11:08 AM MANAGING JEWELER us Yulia Bernabe SUPERVISOR [employer] [facility] - [facility] AL SPECIMEN Final Result [facility] from Last 3 Months or Most Recently Relevant to Health Maintenance Additional Health Concerns Infection Onset Date Last Indicated Rule Out COVID-19 01/28/2025 01/28/2025 Insurance [address] [place] [address] [facility] [employer] [address] [place] [address] [facility] [employer] Advance Directives For more information, please contact: [phone] * Full Code (Latest Code Status on [...] patie nt/ legal decision maker Care Teams Wrapper Dipper Relationship Specialty Start Date End Date No Ref-Primary, Physician PCP - General 11/16/21
--- OUTSIDE RECORDS SUMMARY | 2025-01-29 03:03 | XMS_ITS | Clinical Summary ---
Author Organization [facility] Address [address] [place] [address] Care Team Providers Care Carrot Grader Inspector Name Role Phone Anne Marie Del Toro MD Primary Care Prov ider Allergies No known active allergies Medications OLANzapine (ZYPREXA (FILM COATED TABLET)) 10 mg tabletIndicatio ns:Depression with anxiety,Polysub stance dependence (HC) Take 1 Tablet (10 mg) by mouth at bedtime. 30 Tablet 1 5 Active levonorgestrel- ethinyl estrad, 0.1-20 mg-mcg, (AVIANE) 0.1-20 mg-mcg tablet Take 1 tablet by mouth once daily. 6 Package PRN 1 01/02/20 25 Discontinu ed(*Patien t states no longer taking) disulfiram (ANTABUSE) 250 mg tabletIndicatio ns:Polysubstanc e dependence (HC) Take 1 tablet by mouth every morning. 30 tablet 1 09/29/2015 12:01 PM CDT 6 01/02/20 25 Discontinu ed(*Patien t states no longer taking) diphenhydrAMINE (BENADRYL) 50 mg capsuleIndicati ons:Schizoaffec tive disorder, bipolar type without good prognostic features (HC) Take 1 capsule by mouth 3 times daily if needed for Sleep or Other (anxiety). 90 capsule 1 09/29/2015 12:01 PM CDT 6 01/02/20 25 Discontinu ed(*Patien t states no longer taking) OLANzapine (ZYPREXA, FILM COATED TABLET,) 10 mg tabletIndicatio ns:Schizoaffect [place] disorder, bipolar type without good prognostic features (HC) Take 1 tablet by mouth at bedtime. 30 tablet 1 09/29/2015 12:01 PM CDT 6 01/02/20 25 Discontinu ed(*Patien t states no longer taking) lithium carbonate (LITHOBID) 300 mg Controlled-Rele ase tabletIndicatio ns:Schizoaffect [place] disorder, bipolar type without good prognostic features (HC) Take 1 tablet by mouth 2 times daily. 60 tablet 1 09/29/2015 12:01 PM CDT 6 01/02/20 25 Discontinu ed(*Patien t states no longer taking) OLANzapine (ZYPREXA) 5 mg tablet Take 5 mg by mouth at bedtime. 01/02/20 25 Discontinu ed(Reorder (E-cancel not sent)) Active Problems Problem Noted Date Diagnosed Date Schizoaffective disorder, bi polar type without good prognostic features 09/22/2015 Suicidal ideation 09/22/2015 Polysubstance dependence 09/22/2015 Hx of attention deficit disorder 09/22/2015 Non-compliance with treatment 09/22/2015 Hx MRSA infection 05/18/2010 Tobacco abuse 05/18/2010 Depression with anxiety 05/18/2010 Routine health maintenance 05/18/2010 Overview (05/18/2010): Physical: 06/2008 Pap Smear: 06/2008=NL Tobacco abuse 08/11/2009 MRSA (methicillin resistant staph aureus) cultur e positive 08/11/2009 Depression 08/11/2009 Encounters Date Type Department Care Team Description 01/06/[address] [facility] [address] [place] [address] Jonathon Diop DO Appointment Reminder (Adult intake call ) 01/01/2025 1:00 PM CDT Office Visit [facility] [address] [place] [address] Anne Marie Del Toro MD ER Follow up (12/26/24) 01/01/2025 Travel 12/27/2024 Orders Only [facility] Scanner 1 scan: (1-Ord) [facility] [facility], 12/27/2024 12/27/2024 Orders Only [facility] Scanner 1 scan: (1-Ord) [facility], MULTIPLE TEST RESULTS, 12/27/2024 from Last 3 Months Immunizations Immunization Administration Dates Next Due DTP 09/11/1991 Hepatitis B (Peds) 06/13/2000,02/26/1999, 999 Human Papilloma Virus Vaccine 12/11/2008 ,12/11/2008,07/11/2008,07/11/2008, 07/11/2006,06/19/2006 Influenza, IIV3 (Age >=3 years) 05/12/1995 MMR 01/19/1999 MMRV 03/25/2023 Td (Age >=7 Years) 01/19/1999 Tdap 01/02/2023,07/11/2008,07/11/2008 Tdap, Unspecified 06/19/2012,06/19/2004 Family History Medical History Relation Name Comments Hypertension Other grandmother Relation Name Status Comments Other Social History Tobacco Use Types Packs/Day Years Used Date Smoking Tobacco: Every Day Cigarettes 2 10 Smokeless Tobacco: Never Tobacco Cessation:Ready to Q uit: Not Asked; Counseling Given: Not Answered Comments:5 cigarettes a day Alcohol Use Standard Drinks/Week Comments Yes 1 (1 standard drink = 0.6 oz pur e alcohol) PHQ-2 Answer Date Recorded PHQ-2 TOTAL SCORE 5 01/01/2025 Social Connections Answer Date Recorded Do you often feel lonely or isolated from those around you? 0 01/01/2025 Alcohol Use Answer Date Recorded How often do you have a drink containing alcohol ? 4 01/01/2025 How many drinks containing a lcohol do you have on a typical day when you are drinking? 0 01/01/2025 How often do you have five or more drinks on one occasion? 0 01/01/2025 Financial Resource Strain Answer Date R ecorded Difficulty of Paying Living Expenses 3 01/01/2025 Difficulty of Paying Living Expenses Not on file 01/01/2025 Food Insecurity Answer Date Recorded Do you worry your food will run out before you are able to buy more? 1 01/01/2025 Transportation Needs Answer Date Record ed Does lack of transportation keep you from medica l appointments? 1 01/01/2025 Does lack of transportation keep you from work, meetings or getting things that you need? 1 01/01/2025 Housing Stability Answer Date Recorded What is your housing situation today? 1 01/01/2025 Utilities Answer Date Recorded Do you have trouble paying f or utilities (for example, heat, electricity, water, phone)? 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 Gender Identity Not on file Sexual Orientation Not on file Obstetrics History Para Term AB IAB SAB Ectopic Multiple Livin g Live Births 0 0 0 0 0 0 0 0 0 0 Last Filed Vital Signs Vital Sign Reading Time Taken Comments Blood Pressure 151/101 01/01/2025 1:11 PM CDT Pulse 75 01/01/2025 1:11 PM CDT Temperature 36.4 C (97.6 F) 09/29/2015 8:00 AM CDT Respiratory Rate 17 09/29/2015 8:00 AM CDT Oxygen Saturation 99% 01/01/2025 1:11 PM CDT Inhaled Oxygen Concentration - - Weight 50.6 kg (111 lb 9.6 oz) 09/27/2015 10:00 AM CDT Height 170.2 cm (5' 7) 09/23/2015 10:00 PM CDT Body Mass Index 17.48 09/23/2015 10:00 PM CDT Plan of Treatment Health Maintenance Due Date Last Done Comments HIV for age 15-65 2001 Hepatitis C screening for ag e 18-79 2004 Pneumococcal series for age 6-49 (1 of 2 - PCV) 2005 BMI (ht and wt on same day) for age 18+ 09/19/2016 09/20/2015 COVID-19 vaccine series (2023- season) 2024 Influenza Vaccine (#1) 2025 05/12/1995 Pap test for age 21-65 08/30/2025 3 (Verified in Care Everywhere or Patient Record), 10/20/2009 (Completed outside of [facility]) Depression screening for age 12+ 01/01/2026 01/02/20 25, 09/21/2015 Tetanus booster 01/02/2033 01/02/2023, 06/2012, 07/11/2008, Additional history exists Hepatitis B series for 19+ Completed 06/13, 02/26/1999, 01/19/1999 Procedures Procedure Name Priority Date/Time Associated Diagnosis Comments SCAN-ELECTROCARDIOG ROBSON EKG 12/27/2024 12:00 AM CDT SCAN-LABORATORY REPORT 12/27/2024 12:00 AM CDT from Last 3 Months Results * SCAN-LABORATORY REPORT (12/27/2024 12:00 AM CDT) us Scanner OTHER Final Result * SCAN-ELECTROCARDIOGRAM EKG (12/27/2024 12:00 AM CDT) us Scanner OTHER Final Result from Last 3 Months Additional Health Concerns Infection Onset Date Last Indicated MRSA Comment:Order contact precautions. Nares surveillance cultures needed to clear patient. #1 09/25/15 nares - pending #2 +MRSA ~2007 from knee (per patient) 09/25/2015 09/25/2015 Insurance [facility] Advance Directives * Full Code (Latest Code Status on File) Date Activated Date Inactivated Comments 09/21/2015 4:08 PM 09/29/2015 3:02 PM Care Teams Carrot Grader Inspector Relationship Specialty Start Date End Date Anne Marie Del Toro MD [address] [place] [address] PCP - General Family Practice 12/31/24
--- OUTSIDE RECORDS SUMMARY | 2025-01-29 03:03 | XMS_ITS | Encounter Summary ---
Author Organization [facility] Address [address] [place] [address] [place] [address] Care Team Providers Care Technical Documentation Specialist Name Role Phone No Ref-Primary, Physician Primary Care Provider Encounter Details Date Type Department Care Team (Latest Contact Info) Description 01/28/2025 Travel Social History Tobacco Use Types Packs/Day Years Used Date Smoking Tobacco: Every Day Cigarettes Smokeless Tobacco: Never Comments:Vapes daily along w ith cigarettes Alcohol Use Standard Drinks/Week Comments Not Currently 0 (1 standard drink = 0.6 oz pur e alcohol) rarely PHQ-2 Answer Date Recorded PHQ-2 Score 0 06/28/2018 [place] Depression Scale Answer Date Recorded Last EPDS Total Score Not on file 03/23/2023 The thought of harming myself has occurred to me . 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 Gender Identity Not on file Sexual Orientation Not on file documented as of this encounter Plan of Treatment Not on file documented as of this encounter Visit Diagnoses Not on filedocumented in this encounter Additional Health Concerns Infection Onset Date Last Indicated Resolved Time Rule Out COVID-19 01/28/2025 01/28/2025 Assessment Noted Time PHQ-9 Depression Total Score: 0 03/21/20 15 7:23 AM CDT documented as of this encounter Care Teams Technical Documentation Specialist Relationship Specialty Start Date End Date No Ref-Primary, Physician PCP - General 11/16/21 documented as of this encounter
[2025-01-29 03:07] VITALS: BP 144/101; PULSE 97; RESP 16; TEMP 36.7; O2SAT 98; BMI 23.2
[2025-01-29] MEDS: PROCHLORPERAZINE 5 MG/ML VIAL IV (03:33)
[2025-01-29] MEDS: OLANZapine 5 MG/ML inj IVP (03:33)
[2025-01-29 03:39] VITALS: O2SAT 98
--- NOTE | 2025-01-29 03:40 | ED.GENADULT ---
HPI - General Adult General Chief complaint: Nausea/Vomiting Stated complaint: persistent nausea Time Seen by Provider: 01/29/25 03:13 Source: patient Mode of arrival: ambulatory Limitations: no limitations History of Present Illness HPI narrative: 39-year-old female presents to the ED with several weeks history of nausea and vomiting, worsening over the past few days. Reports that she was evaluated in urgent care through [facility] yesterday. Reports that labs were essentially normal and she was given a prescription for oral Zofran. Reports that she is taking it in it is not helping. No hematemesis, no bloody stools. Reports that she has been unable to hold down any nutrition for several days. It sounds like there were ketones in her urine but no other major abnormalities. It does not sound as though pancreatic enzymes were checked according to her significant other. test was negative. No imaging was performed. She notes no abdominal pain, has no history of abdominal surgery except for a tubal ligation. No gynecological changes. No dysuria. On specific questioning, she reports that she does smoke marijuana daily and has done so for quite some time. She does notice some temporary improvement in a hot shower as well. No specific trauma or injury. Has not tried other interventions to help with symptoms. Does continue to smoke the marijuana daily. She reports her past medical history is benign, no major long-term health problems. Denies long-term medications. Marijuana but no other drug use. Denies history of other organ system issues times 12 systems. Related Data Home Medications ?Medication ?Instructions ?Recorded ?Confirmed ondansetron 4 mg disintegrating 4 mg PO Q8H PRN 01/29/25 01/29/25 tablet Previous Rx's ?Medication ?Instructions ?Recorded olanzapine 10 mg tablet 5 - 10 mg (0.5 - 1 x 10 mg) PO QHS 01/29/25 PRN Hyperemesis syndrome #10 tabs Allergies Allergy/AdvReac Type Severity Reaction Status Date / Time No Known Drug Allergies Allergy Verified 01/29/25 03:06 [facility] Social History Smoking Status: Current every day smoker What tobacco products do you use: cigarettes Do you use any of these nicotine containing products: Vaping Products How often do you have a drink containing alcohol: 2-3 times a week AUDIT-C Alcohol total score: 3 Non-prescribed substance use: marijuana (any form) Exam Const: Vital Signs, click to edit/add: Vital Signs - 24 hr 01/29/25 03:07 01/29/25 03:39 Temperature 98.1 F Pulse Rate [Pulse Oximeter] 97 Respiratory Rate 16 Blood Pressure [Ri ght Upper Arm] 144/101 H Pulse Oximetry 98 98 Oxygen Delivery Me thod Room Air Documenting provider has reviewed patient's vital signs: yes Other: Tearful but appears nontoxic. HENMT: Common normals: normocephalic and oropharynx normal Head and scalp: normocephalic Face and sinus: normal facial exam Mouth: oral and palatal mucosa normal Eye: Common normals: conjunctivae normal General eye: normal appearance of both eyes Conjunctiva: conjunctiva(e) normal Neck & C-Spine: Common normals: full ROM and no lymphadenopathy General: normal visual inspection Resp: Common normals: normal respiratory effort, no use of accessory muscles and clear to auscultation bilaterally Effort & inspection: able to speak in complete sentences Auscultation: clear to auscultation bilaterally Cardio: Common normals: regular rate, regular rhythm, S1 normal heart sound, S2 normal heart sound and no murmurs Rate: regular rate Rhythm: regular rhythm Heart sounds: S1 normal and S2 normal GI: Common normals: Normal to inspection, nondistended, normoactive bowel sounds present, soft to palpation, non-tender, no hepatosplenomegaly and no masses Palpation: soft and no hepatosplenomegaly Back & Pelvis: Common normals: thoracic and lumbar spine normal to inspection Extremity: Common normals: normal to inspection, normal capillary refill and no pedal edema Neuro: Motor exam: no movement abnormalities noted Psych: Activity/motor behavior: appropriate eye contact Mood and affect: tearful Attention/concentration: attention grossly intact Insight: fair Judgement: fair Skin: Common normals: no rashes or lesions noted General skin exam: no rashes or lesions noted Course Course ED Course: 39-year-old female with reportedly normal labs less than 24 hours ago presenting with persistent nausea and vomiting. Regular marijuana use, chronicity very suspicious for cannabinoid induced hyperemesis syndrome. Cannot exclude pancreatitis, GI destruction, infection, gastritis, amongst others. Counseled patient on my suspected diagnosis which made her tearful. Counseled that Zofran is not typically beneficial in those scenarios. I recommended we place an IV, check a couple of things in her blood work like lipase and recheck liver enzymes. Will also add a CRP. Will give 1 L of normal saline, 5 of Zyprexa in 5 of Compazine then re-evaluate. I do not think that we need to repeat the urinalysis and test as those have been performed within the last 24 hours and I have them available for review. Reevaluation(s) Time of Reevaluation #1: 04:21 Reevaluation #1: Patient resting upon my re-evaluation and is feeling somewhat better. She has not shown any retching or vomiting during her stay here in the ED. I do attempt to discuss treatment of hyperemesis, typical pathophysiology and management. She becomes quite irritable, swearing at me and hostile through this conversation. Reports that she will not be giving at marijuana and isthmus is any attempts I have to engage her in further discussion. I do let her know that I would like to give her 1 more L of fluid to reverse as much dehydration as possible and give her the best chance of success with treatment. She reports that she does not care for a prescription for the olanzapine but I think she might have a change of heart and her does seem quite on board with the treatment. I did stress that no medications that I prescribed will be successful without stopping marijuana. Encouraged her to try the Zofran during the day and olanzapine at night for the next few days, push fluids and eat salty food. Alarm symptoms were reviewed as indications to come back to the ED and written instructions were provided outlining this as well. Vital Signs Vital signs: Initial Vital Signs Temperature 98.1 F 01/29/25 03:07 Temperature Source Temporal Artery Scan 01/29/25 03:07 Pulse Rate 97 01/29/25 03:07 Respiratory Rate 16 01/29/25 03:07 Blood Pressure 144/101 H 01/29/25 03:07 Blood Pressure Mean 115 H 01/29/25 03:07 Blood Pressure Position Sitting 01/29/25 03:07 Pulse Oximetry 98 01/29/25 03:07 Oxygen Delivery Method Room Air 01/29/25 03:07 Vital Signs Temperature 98.1 F 01/29/25 03:07 Pulse Rate 97 01/29/25 03:07 Respiratory Rate 16 01/29/25 03:07 Blood Pressure 144/101 H 01/29/25 03:07 Pulse Oximetry 98 01/29/25 03:07 Oxygen Delivery Method Room Air 01/29/25 03:07 Temperature 98.1 F 01/29/25 03:07 Pulse Rate 97 01/29/25 03:07 Respiratory Rate 16 01/29/25 03:07 Blood Pressure 144/101 H 01/29/25 03:07 Pulse Oximetry 98 01/29/25 03:39 Oxygen Delivery Method Room Air 01/29/25 03:07 Medications Administered Medications: Generic Name Dose Route Start Last Admin Trade Name Freq PRN Reason Stop Dose Admin Sodium Chloride 1,000 mls @ 1,000 mls/hr 01/29/25 03:27 01/29/25 04:15 0.9 % Sodium Chloride 1000 Ml IV 01/29/25 04:26 Infused .Q1H TANIA Infusion Discontinued Medications Generic Name Dose Route Start Last Admin Trade Name Freq PRN Reason Stop Dose Admin Olanzapine 5 mg 01/29/25 03:27 01/29/25 03:33 Olanzapine 5 Mg/Ml Inj IVP 01/29/25 03:28 5 mg ONCE ONE Administration Prochlorperazine 5 mg 01/29/25 03:27 01/29/25 03:33 Prochlorperazine 5 Mg/Ml Vial IV 01/29/25 03:28 5 mg ONCE ONE Administration Medical Decision Making Lab Data Lab results reviewed: Yes I reviewed the patient's lab results Lab results narrative: Mild elevation of AST is consistent with labs drawn yesterday, not worsening. No signs of obstructive liver disease. CRP is not elevated, no signs of leukocytosis. Urine does have ketones. There is a little bit of blood, reports that this is likely menstrual. Labs: Lab Results 01/29/25 01/29/25 Range/Units 03:28 03:35 WBC 4.87 (4.50-11.00) K/uL RBC 4.24 (4.00-5.20) m/uL Hgb 13.6 (12.0-16.0) gm/dL Hct 40.0 (33.0-51.0) % MCV 94 (80-100) fL MCH 32 (26-34) pg MCHC 34 (32-36) gm/dL RDW Coeff of [place] 11.9 (11.5-15.5) % Plt Count 243 (140-440) K/uL Neut % (Auto) 37.5 L (42.0-72.0) % Lymph % (Auto) 48.0 H (20-44) % Grand % (Auto) 12.9 H (0.0-11.0) % Eos % (Auto) 1.2 (0.0-7.0) % Baso % (Auto) 0.2 (0.0-3.0) % Neut # (Auto) 1.80 (1.7-7.0) K/uL Lymph # (Auto) 2.30 (0.90-2.90) K/uL Grand # (Auto) 0.60 (0.00-0.90) K/UL Eos # (Auto) 0.06 (0.00-0.50) K/uL Baso # (Auto) 0.01 (0.00-0.30) K/uL Abs Immat Gran (auto) 0.01 (0.00-0.30) K/uL Imm/Tot Granulo (auto) 0.2 % Sodium 137 (135-149) mmol/L Potassium 3.5 L (3.6-5.1) mmol/L Chloride 104 (96-114) mmol/L Carbon Dioxide 26 (20-32) mmol/L Anion Gap 7 (7-15) mEq/L BUN 10 (5-24) mg/dL Creatinine 0.5 (0.5-1.5) mg/dL Estimated Creat Clear 148.35 Estimated GFR 123 ml/min Glucose 95 (60-115) mg/dL Calcium 9.8 (8.4-10.6) mg/dL Total Bilirubin 0.8 (0.1-1.5) mg/dL AST 60 H (12-35) U/L ALT 46 H (4-35) U/L Alkaline Phosphatase 65 (40-150) U/L C-Reactive Protein < 0.5 L (0.5-1.0) mg/dL Total Protein 7.8 (6.0-8.3) g/dL Albumin 4.7 (3.3-5.0) g/dL Lipase 83 (23-300) U/L Urine Color Yellow (Yellow) Urine Appearance Cloudy A (Clear) Urine pH 5.5 (5.0-8.5) Ur Specific [place] >= 1.030 (1.000-1.030) Urine Protein 3+ A (Negative) Urine Glucose (UA) Negative (Negative) Urine Ketones 2+ A (Negative) Urine Blood 3+ A (Negative) Urine Nitrite Positive A (Negative) Urine Bilirubin 2+ A (Negative) Urine Urobilinogen 1.0 (0.2-1.0) Ur Leukocyte Esterase Negative (Negative) Urine RBC 2-5 A (0-2) Urine WBC 2-5 (0-5) Ur Squamous Epith Cells Few (None-Few) Urine Bacteria Few A (None) Discharge Plan Discharge Clinical Impression: Cannabinoid hyperemesis syndrome Patient Disposition: Home w/ Parent or Adult Condition: Improved Instructions: Cyclic Vomiting Syndrome (ED) Additional Instructions: As we discussed, your blood work is quite reassuring that there are no signs of pancreatitis, infection, obstruction or other dangerous pathology for your symptoms. You are quite dehydrated which of course does make sense since you have not been able to hold down fluids or food very well for the past few days. The IV fluids that I have provided will correct the dehydration temporarily but the bigger issue is we need to find a way to break you out of this vomiting cycle. Your hesitant to accept my diagnosis of cannabinoid induced hyperemesis syndrome, many are during their 1st episode. I do completely understand that the thought of giving up the marijuana has significant negative consequences for you also and I encourage you to explore additional options with a primary care provider, psychiatrist or GI provider. I want to make it abundantly clear that the only solution for this is to stop using any cannabis containing products for a minimum of 6 weeks. Once you start having these episodes of frequent vomiting, the recurrence rate is very high if you start using cannabis again. This condition does not typically respond well to the typical anti nausea medications. Because of this, I did discuss olanzapine, also known as Zyprexa which is a mental health medication that we have found actually works reasonably well for hyper emesis syndromes. Treatment is 10 mg at bedtime to treat or prevent the condition and then use typical anti nausea medicines like Zofran during the day. Continue to push fluids, eat foods with plenty of salt and follow-up with your primary care provider to discuss long-term treatment options. You should return to emergency department if you have vomiting or stool passage of lots of blood, high fever or severe symptoms. Activity Level: No Restrictions Discharge Diet: Regular Prescriptions: New olanzapine 10 mg tablet 5 - 10 mg PO QHS PRN (Reason: Hyperemesis syndrome) Qty: 10 0RF No Action ondansetron 4 mg tablet,disintegrating 4 mg PO Q8H PRN Follow Up/Referrals: Provider,Not a Local [Primary Care Provider, Family Practice] Stand Alone Forms: [employer] Info Instructions
[2025-01-29 03:42] LABS: Hematocrit 40.0 % (33.0-51.0); Hemoglobin* 13.6 gm/dL (12.0-16.0); Immature Granulocytes Abs Auto 0.01 K/uL (0.00-0.30); Immature Granulocytes Pct Auto 0.2 %; Mean Corpuscular HGB Conc 34 gm/dL (32-36); Mean Corpuscular Hemoglobin 32 pg (26-34); Mean Corpuscular Volume 94 fL (80-100); RDW Coefficient of Variation % 11.9 % (11.5-15.5); Red Blood Count 4.24 m/uL (4.00-5.20); White Blood Count* 4.87 K/uL (4.50-11.00)
[2025-01-29 03:44] LABS: Appearance Urine Cloudy (Clear)
[2025-01-29 03:46] LABS: Lymphocytes Absolute Auto 2.30 K/uL (0.90-2.90); Slide Review Reflex No
[2025-01-29 03:54] LABS: Albumin* 4.7 g/dL (3.3-5.0); Chloride* 104 mmol/L (96-114)
[2025-01-29 03:55] LABS: Potassium* 3.5 mmol/L (3.6-5.1); Sodium* 137 mmol/L (135-149)
[2025-01-29 03:57] LABS: Alanine Aminotransferase* 46 U/L (4-35); Aspartate Amino Transferase* 60 U/L (12-35); Blood Urea Nitrogen* 10 mg/dL (5-24); Creatinine* 0.5 mg/dL (0.5-1.5); Est. Creatinine Clearance* 148.35; Estimated Glomerular Filt Rate 123 ml/min
[2025-01-29 03:58] LABS: Alkaline Phosphatase* 65 U/L (40-150); Anion Gap 7 mEq/L (7-15); Bilirubin Total* 0.8 mg/dL (0.1-1.5); Calcium* 9.8 mg/dL (8.4-10.6); Carbon Dioxide* 26 mmol/L (20-32); Glucose* 95 mg/dL (60-115); Total Protein* 7.8 g/dL (6.0-8.3)
[2025-01-29] MEDS: FAMOTIDINE 20 MG TABLET PO (04:18)
[2025-01-29] MEDS: LACTATED RINGERS 1000 ML 1,000 ML 2000 ML IV (04:21)
== END 2025-01-29 05:15 | disposition home or self-care (01) ==
PROVIDERS: Emergency Provider Family Medicine
DX: F12.188 Cannabis abuse with other cannabis-induced disorder (principal)
CPT/HCPCS: 36415; 80053; 81001; 81003; 83690; 85025; 86140; 87086; 94761; 96374; 99284; A9270; J0780; J7030; J7120